=== PATIENT | female | born 1955 | race Caucasian/White ===

== ENCOUNTER → 2017-04-02 | Outpatient (CLI) | payer MEDICARE, OTHER ==
[~2017-04-02] MED LIST: ALPR1TAB7 PO; ATOR20TA66 PO; ATOR80TA2 PO; BP MED; CHLS4PK PO; CHOL5000 PO; CITA-105 PO; D50KC PO; FURO40TA4 PO; FURO80TA PO; GLIM1TAB PO; GLYBURIDE; JANUVIA PO; LASIX; LATA2.5D5 OU; LEVO175T2 PO; LIRA0.6P SQ; LIRA0.6P3 SC; LISI5TAB PO; LVT.15T PO; PNT40TEC PO; POTA10TA PO; POTASSIUM; SITA100T PO; STR51SU12 PR; THRYOID PO; VICTOZA; VITAMIN A; VITAMIN B PO; [UNRECOGNIZED DRUG - OTHER]
--- NOTE | 2017-04-02 15:47 | Diagnostic Imaging Report ---
EXAMINATION: Bilateral renal ultrasound. INDICATION: Chronic kidney disease. FINDINGS: The right kidney is 10.1 and the left kidney is 11.4 cm in length. There is no hydronephrosis or focal lesion. There is mild thinning of the renal parenchyma on both sides. The bladder was empty at the time of the exam and could not be evaluated. IMPRESSION: No hydronephrosis. Dictated by: Dictated on workstation # [id number]
== END ==
LOC: RAD 14:42
PROVIDERS: ATTEND Internal Medicine Nephrology
DX: N18.3 Chronic kidney disease, stage 3 (moderate) (principal); E11.22 Type 2 diabetes mellitus with diabetic chronic kidney disease; N25.81 Secondary hyperparathyroidism of renal origin; R89.9 Unspecified abnormal finding in specimens from other organs, systems and tissues; N28.1 Cyst of kidney, acquired
CPT/HCPCS: 76770

== ENCOUNTER 2017-11-19 17:11 | Emergency (ER) | payer MEDICARE ==
[~2017-11-19] VITALS: Ht 154.9 cm; Wt 135.2 kg
--- OUTSIDE RECORDS SUMMARY | 2017-11-19 17:17 | XMS REPORT | Continuity of Care Document ---
Author Author [facility] Organization [facility] Address Unknown Phone Unavailable Allergies Active Description Code Type Severity Reaction Onset Reported/Identified Relationship to Patient Clinical Status Yes No Known Drug Allergies [id number] Drug Allergy Unknown N/A 10/27/2013 Medications There is no data. Problems Date Dx Coded Attending Type Code Diagnosis Diagnosed By 03/22/2013 MYRA KIM DOQUELINE S Ot 780.79 OTH MALAISE FATIGUE 03/22/2013 RADHIKANDNENA DO ROBINSON S Ot 781.2 ABNORMALITY OF GAIT 03/22/2013 RADHIKANDNENA GARZA ROBINSON S Ot V15.88 HISTORY OF FALL 03/22/2013 RADHIKANDMYRA BARRETT DOQUELINE S Ot V57.1 PHYSICAL THERAPY NEC 04/30/2013 JULIO GARZA ROBINSON S Ot 780.79 OTH MALAISE FATIGUE 04/30/2013 RADHIKANDER DO ROBINSON S Ot 781.2 ABNORMALITY OF GAIT 04/30/2013 RADHIKANDNENA DO ROBINSON S Ot V15.88 HISTORY OF FALL 04/30/2013 RADHIKANDER DO ROBINSON S Ot V57.1 PHYSICAL THERAPY NEC 11/05/2013 MYRA KIM DOQUELINE S Ot 041.02 BACTERIAL INFECTION DUE TO STREPTOCOCCUS 11/05/2013 MYRA KIM DOQUELINE S Ot 041.49 OTHER AND UNSPECIFIED ESCHERICHIA COLI [ 11/05/2013 RADHIKANDNENA GARZA ROBINSON S Ot 244.9 HYPOTHYROIDISM NOS 11/05/2013 RADHIKANDNENA GARZA ROBINSON S Ot 245.0 ACUTE THYROIDITIS 11/05/2013 JULIO GARZA ROBINSON S Ot 250.80 DIAB W OTH SPEC MANIFEST, TYPE II OR UNS 11/05/2013 RADHIKANDNENA GARZA ROBINSON S Ot 272.4 HYPERLIPIDEMIA NEC/NOS 11/05/2013 RADHIKANDMYRA BARRETT DOQUELINE S Ot 276.51 DEHYDRATION 11/05/2013 RADHIKANDMYRA BARRETT DOQUELINE S Ot 278.01 MORBID OBESITY 11/05/2013 ROBINSON KIM DO S Ot 401.9 HYPERTENSION NOS 11/05/2013 ROBINSON KIM DO S Ot 455.6 HEMORRHOIDS NOS 11/05/2013 ROBINSON KIM DO S Ot 458.9 HYPOTENSION NOS 11/05/2013 ROBINSON KIM DO S Ot 558.9 NONINF GASTROENTERIT NEC 11/05/2013 ROBINSON KIM DO S Ot 569.49 RECTAL ANAL DIS NEC 11/05/2013 ROBINSON KIM DO S Ot 584.9 ACUTE RENAL FAILURE, UNSPECIFIED 11/05/2013 ROBINSON KIM DO S Ot 599.0 URIN TRACT INFECTION NOS 11/05/2013 ROBINSON KIM DO S Ot 780.79 OTH MALAISE FATIGUE 11/05/2013 ROBINSON KIM DO S Ot 924.11 CONTUSION OF KNEE 11/05/2013 ROBINSON KIM DO Ot E000.8 OTHER EXTERNAL CAUSE STATUS 11/05/2013 ROBINSON KIM DO S Ot E849.0 ACCIDENT IN HOME 11/05/2013 ROBINSON KIM DO S Ot E888.9 FALL NOS 11/05/2013 ROBINSON KIM DO S Ot V10.87 HX OF THYROID MALIGNANCY 11/05/2013 JULIO GARZA ROBINSON S Ot V45.86 BARIATRIC SURGERY STATUS 11/05/2013 ROBINSON KIM DO S Ot V85.44 BODY MASS INDEX 60.0-69.9, ADULT 11/25/2014 RADHIKANICOLETTE ROBINSON S Ot 285.9 11/25/2014 JULIO ROBINSON S Ot 593.9 11/25/2014 Ot 722.52 11/25/2014 Ot 782.0 11/25/2014 Ot V76.12 11/25/2014 FRANCISCO JAVIER GANT SPANISH LECTURER Ot 593.9 11/25/2014 FRANCISCO JAVIER GANTP Ot V76.12 01/13/2015 SOLE FROST MD Ot 250.60 01/13/2015 SOLE FROST MD Ot 285.9 01/13/2015 SOLE FROST MD Ot 337.1 01/13/2015 SOLE FROST MD Ot 585.3 01/13/2015 SOLE FROST MD Ot 588.0 01/20/2015 SOLE FROST MD A Ot 250.60 01/20/2015 SOLE FROST MD A Ot 285.9 01/20/2015 SOLE FROST MD Ot 337.1 01/20/2015 SOLE FROST MD Ot 585.3 01/20/2015 SOLE FROST MD Ot 588.0 08/31/2015 VANCOREY FRANCISCO JAVIER M SPANISH LECTURER Ot 593.9 08/31/2015 VANBECELAEJAMIL SCANLONSA M SPANISH LECTURER Ot V76.12 10/08/2016 KHANG KIM DOLINE S Ot 285.9 ANEMIA NOS 10/08/2016 KHANG KIM DOLINE S Ot 593.9 RENAL URETERAL DIS NOS 10/08/2016 Ot 722.52 LUMB/ LUMBOSAC DISC DEGEN 10/08/2016 Ot 782.0 SKIN SENSATION DISTURB 10/08/2016 Ot V76.12 OTH SCREEN MAMMO-MALIGN NEOPLASM OF MARÍA 10/08/2016 VANIDALIAELAERE FRANCISCO JAVIER M SPANISH LECTURER Ot 593.9 RENAL URETERAL DIS NOS 10/08/2016 VANIDALIAELAERE FRANCISCO JAVIER M SPANISH LECTURER Ot V76.12 OTH SCREEN MAMMO-MALIGN NEOPLASM OF MARÍA 10/08/2016 SOLE FROST MD Ot 250.60 DIAB W NEURO MANIFEST, TYPE II OR UNSPEC 10/08/2016 SOLE FROST MD Ot 285.9 ANEMIA NOS 10/08/2016 SOLE FROST MD Ot 337.1 AUT NEUROPTHY IN OTH DIS 10/08/2016 SOLE FROST MD Ot 585.3 CHRONIC KIDNEY DISEASE, STAGE III (MODER 10/08/2016 SOLE FROST MD Ot 588.0 RENAL OSTEODYSTROPHY 10/08/2016 ROBINSON KIM DO S Ot Z12.31 ENCNTR SCREEN MAMMOGRAM FOR MALIGNANT NE 10/09/2016 ROBINSON KIM DO S Ot Z12.31 ENCNTR SCREEN MAMMOGRAM FOR MALIGNANT NE 10/09/2016 ROBINSON KIM DO S Ot Z12.31 ENCNTR SCREEN MAMMOGRAM FOR MALIGNANT NE 10/30/2016 ROBINSON KIM DO S Ot Z12.31 ENCNTR SCREEN MAMMOGRAM FOR MALIGNANT NE 11/07/2016 KHANG KIM DOLINE S Ot Z12.31 ENCNTR SCREEN MAMMOGRAM FOR MALIGNANT NE 04/02/2017 KHANG KIM DOLINE S Ot 285.9 ANEMIA NOS 04/02/2017 ARDHIKANDKHANG BARRETT DOLINE S Ot 593.9 RENAL URETERAL DIS NOS 04/02/2017 Ot 722.52 LUMB/ LUMBOSAC DISC DEGEN 04/02/2017 Ot 782.0 SKIN SENSATION DISTURB 04/02/2017 Ot V76.12 OTH SCREEN MAMMO-MALIGN NEOPLASM OF MARÍA 04/02/2017 FRANCISCO JAVIER GANT SPANISH LECTURER Ot 593.9 RENAL URETERAL DIS NOS 04/02/2017 FRANCISCO JAVIER GANT SPANISH LECTURER Ot V76.12 OTH SCREEN MAMMO-MALIGN NEOPLASM OF MARÍA 04/02/2017 SOLE FROST MD Ot 250.60 DIAB W NEURO MANIFEST, TYPE II OR UNSPEC 04/02/2017 SOLE FROST MD Ot 285.9 ANEMIA NOS 04/02/2017 SOLE FROST MD Ot 337.1 AUT NEUROPTHY IN OTH DIS 04/02/2017 SOLE FROST MD Ot 585.3 CHRONIC KIDNEY DISEASE, STAGE III (MODER 04/02/2017 SOLE FROST MD Ot 588.0 RENAL OSTEODYSTROPHY 04/02/2017 RADHIKARAYNANENA ROBINSON S Ot Z12.31 ENCNTR SCREEN MAMMOGRAM FOR MALIGNANT NE 04/14/2017 SOLE FROST MD Ot E11.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 Encounters ACCT No. Visit Date/Time Discharge Status Pt. Type Provider Facility Loc./Unit Complaint [id number] 04/02/2017 14:42:00 04/02/2017 23:59:59 CLS Outpatient SOLE FROST MD [facility] RAD N18.3 DM 2 W RENAL DISEASE [id number] 10/08/2016 14:44:00 10/08/2016 23:59:59 CLS Outpatient KHANG KIM DOLINE S [facility] RAD SCREENING,LT UPPER ANTERIOR LYMPHADENOPATHY [id number] 11/29/2014 14:00:00 11/29/2014 23:59:59 CLS Outpatient SOLE FROST MD [facility] RAD CKD 3 [id number] 2014 13:42:00 2014 23:59:59 CLS Outpatient FRANCISCO JAVIER GANT SPANISH LECTURER [facility] RAD RENAL INSUFFICENCY [id number] 11/12/2013 13:14:00 11/12/2013 23:59:59 CLS Outpatient JULIO GARZA ROBINSON S [facility] LAB ANEMIA,RENAL INSUFF [id number] 10/27/2013 12:46:00 11/05/2013 12:38:00 DIS Inpatient JULIO GARZA ROBINSON S [facility] 4TH ACUTE RENAL FAILURE DEHYDRATION DIABETES [id number] 04/14/2013 15:19:00 04/30/2013 09:02:00 DIS Outpatient RADHIKANDNENA GARZA ROBINSON S [facility] REHAB FALLS WEAKNESS GAIT ABNORMALITY [id number] 03/19/2013 15:33:00 03/22/2013 08:00:00 DIS Outpatient RADHIKANDNENA GARZA ROBINSON S [facility] REHAB FALLS WEAKNESS GAIT ABNORMALITY [id number] 01/22/2012 14:53:00 Document Registration
--- NOTE | 2017-11-19 19:45 | ED General ---
General Chief Complaint: Allergic Reaction Stated Complaint: POSSIBLE MEDICATION REACTION Nursing Triage Note: PT REPORTS TROUBLE FORMING WORDS AND TINGLING IN HER TONGUE FOR 1 WEEK AFTER STARTING AMPITRIPYLINE 1 WEEK AGO. Nursing Sepsis Screen: No Definite Risk Source of Information: Patient Exam Limitations: No Limitations History of Present Illness Date Seen by Provider: Nov 19, 2017 Time Seen by Provider: 19:43 Initial Comments To ER with some intermittent dysarthria and tingling sensation in her tongue that has been going on for one week after starting amitriptyline. She started amitriptyline 2 weeks ago. She was formerly on Xanax 1 mg at bedtime and hydrocodone for pain. She saw Dr. KIM who told her that she should take one or the other but not bolus and so the patient chose to give up the Xanax. In place of this she started amitriptyline to help sleep and she states it is helping significantly with her sleeping. She called the office today and was referred to the emergency room by the nurse because this could represent a stroke. Timing/Duration: 1 Week Severity: Moderate Allergies and Home Medications Allergies Coded Allergies: adhesive tape (Unverified Adverse Reaction, Unknown, 11/19/17) Home Medications Amitriptyline HCl 100 Mg Tablet, 100 MG PO HS, (Reported) Atorvastatin Calcium 20 Mg Tablet, 20 MG PO DAILY, (Reported) Cholecalciferol 5,000 Unit Capsule, 5,000 UNIT PO DAILY, (Reported) Doxycycline Monohydrate 100 Mg Capsule, 100 MG PO BID, (Reported) Duloxetine HCl 30 Mg Capsule.dr, 30 MG PO DAILY, (Reported) Gabapentin 800 Mg Tablet, 800 MG PO HS, (Reported) Hydrocodone/Acetaminophen 1 Each Tablet, 1 TAB PO TID PRN for PAIN-MILD TO MODERATE, (Reported) Latanoprost 2.5 Ml Drops, 1 DROP OU HS, (Reported) Levothyroxine Sodium 175 Mcg Tablet, 175 MCG PO DAILY, (Reported) Metformin HCl 500 Mg Tab.er.24h, 1,000 MG PO DAILY, (Reported) Constitutional: see HPI EENTM: see HPI Respiratory: no symptoms reported Cardiovascular: no symptoms reported Genitourinary: no symptoms reported Musculoskeletal: no symptoms reported Skin: no symptoms reported Psychiatric/Neurological: No Symptoms Reported Hematologic/Lymphatic: No Symptoms Reported Past Fetbgak-Grvlnz-Yvzkzy Hx Patient Social History Recent Foreign Travel: No Contact w/Someone Who Travel: No Recent Infectious Disease Expo: No Physical Abuse: No Sexual Abuse: No Mistreated: No Fear: No Immunizations Up To Date Date of Pneumonia Vaccine: Oct 20, 2009 Date of Influenza Vaccine: Aug 20, 2013 Reproductive System Hx Reproductive Disorders: No HIV/AIDS: No Female Reproductive Disorders: Denies Musculoskeletal Musculoskeletal Disorders: Arthritis, Chronic Back Pain Endocrine Endocrine Disorders: Diabetes, Non-Insulin dep HEENT Hearing Impairment: Denies Cancer Cancer: Thyroid Psychosocial Suicide Risk Score: 0 Physical Exam Vital Signs Vital Sign - Last 12Hours 11/19/17 19:04 Temp 97.9 Pulse 86 Resp 18 B/P (MAP) 110/68 (82) Pulse Ox 94 O2 Delivery Room Air Capillary Refill : Less Than 3 Seconds General Appearance: No Apparent Distress, WD/WN Eyes: Bilateral Eye Normal Inspection, Bilateral Eye PERRL HEENT: PERRL/EOMI, TMs Normal Neck: Full Range of Motion, Normal Inspection Respiratory: No Accessory Muscle Use, No Respiratory Distress Cardiovascular: Regular Rate, Rhythm, Normal Peripheral Pulses Gastrointestinal: Non Tender, Soft Extremity: Normal Capillary Refill, Normal Inspection Neurologic/Psychiatric: Alert, Oriented x3 Skin: Normal Color, Warm/Dry Comments On exam she does have some intermittent dysarthria without other focal neurologic deficit. Progress/Results/Core Measures Suspected Sepsis Recent Fever Within 48 Hours: No Infection Criteria Present: None New/Unexplained Altered Menta: No Sepsis Screen: No Definite Risk Sepsis Diagnosis: SIRS Temperature:97.9 Pulse: 86 Respiratory Rate: 18 Blood Pressure 110 /68 Mean: 82 Results/Orders My Orders Orders - ROSALINE QURESHI APRN Ct [facility] Wo (11/19/17 19:42) Vital Signs/I&O Vital Sign - Last 12Hours 11/19/17 19:04 Temp 97.9 Pulse 86 Resp 18 B/P (MAP) 110/68 (82) Pulse Ox 94 O2 Delivery Room Air Capillary Refill : Less Than 3 Seconds Blood Pressure Mean: 82 Departure Impression Impression: Primary Impression: Medication side effect Disposition: 01 HOME, SELF-CARE Condition: Stable Departure-Patient Inst. Decision time for Depature: 20:14 Referrals: ROBINSON KIM DO (PCP/Family) Primary Care Physician Patient Instructions: NO INSTRUCTIONS GIVEN Add. Discharge Instructions: 1. Call Dr. Kim tomorrow to let her know of your side effects of this medication. Ask if there might be something else you could try 2. Return to ER for any concerns or worsening symptoms All discharge instructions reviewed with patient and/or family. Voiced understanding. Copy Copies To 1: ROBINSON KIM PETER J APRN Nov 19, 2017 19:45
[2017-11-19] MEDS ORDERED: DULO30CA48 PO (19:50)
[2017-11-19] MEDS ORDERED: AMIT100T2 PO (19:50)
[2017-11-19] MEDS ORDERED: GABA800T2 PO (19:50)
[2017-11-19] MEDS ORDERED: DOXY100C42 PO (19:50)
[2017-11-19] MEDS ORDERED: HYDR-34 PO (19:50)
[2017-11-19] MEDS ORDERED: METF500T8 PO (19:50)
[2017-11-19] MEDS ORDERED: LEVO175T2 PO (19:50)
--- NOTE | 2017-11-19 20:05 | Diagnostic Imaging Report ---
PROCEDURE: CT head without contrast. TECHNIQUE: Multiple contiguous axial images were obtained through the brain without the use of intravenous contrast. INDICATION: Dysphonia, altered mental status The ventricles are normal in size, shape and position. There are no masses or hemorrhages. There are no extra-axial fluid collections. IMPRESSION: Negative CT head Dictated by: Dictated on workstation # [id number]
[2017-11-19 20:25] VITALS: BP 110/75
== END 2017-11-19 20:25 | disposition home or self-care (01) ==
LOC: EDUNIT# 17:11 → ER 17:13
DX: R47.1 Dysarthria and anarthria (principal); E11.9 Type 2 diabetes mellitus without complications; Z85.850 Personal history of malignant neoplasm of thyroid; Z91.048 Other nonmedicinal substance allergy status; Z79.01 Long term (current) use of anticoagulants; Z79.84 Long term (current) use of oral hypoglycemic drugs; T43.015A Adverse effect of tricyclic antidepressants, initial encounter
CPT/HCPCS: 70450; 99282

== ENCOUNTER → 2018-12-31 | Outpatient (CLI) | payer MEDICARE ==
[~2018-12-31] MED LIST changes: +AMIT100T2 PO; +DOXY100C42 PO; +DULO30CA48 PO; +GABA800T10 PO; +HYDR-34 PO; +METF500T8 PO
--- NOTE | 2018-12-31 20:05 | Diagnostic Imaging Report ---
INDICATION: Routine screening. Comparison is made with prior mammograms from 10/08/2016 and 07/19/2014. 2-D and 3-D bilateral screening mammography was performed with Computer-Aided Detection (CAD) system. FINDINGS: Scattered fibroglandular densities are identified bilaterally. Benign-appearing parenchymal and vascular calcifications are again noted. No mass or malignant-appearing microcalcifications are seen. The axillae are unremarkable. IMPRESSION: No mammographic features suspicious for malignancy are identified. ACR BI-RADS Category 2: Benign findings. Result letter will be mailed to the patient. Note: At least 10% of breast cancer is not imaged by mammography. Dictated by: Dictated on workstation # [id number]
== END ==
LOC: RAD 13:58
PROVIDERS: ATTEND Family Medicine
DX: Z12.31 Encounter for screening mammogram for malignant neoplasm of breast (principal)
CPT/HCPCS: 77067

== ENCOUNTER → 2019-03-03 | Outpatient (CLI) | payer MEDICARE ==
--- NOTE | 2019-03-03 12:17 | Diagnostic Imaging Report ---
INDICATION: Multiple recent falls. TECHNIQUE: Routine non contrast-enhanced axial images were obtained from the skull base to the vertex. Auto Exposure Controls were utilized during the CT exam to meet ALARA standards for radiation dose reduction COMPARISON: None. FINDINGS: The ventricles and cortical sulci are diffusely prominent, compatible with age-related volume loss. There are confluent areas of abnormal, low attenuation in the periventricular white matter. This is consistent with small chronic small vessel ischemic changes. There is no midline shift or mass-effect. No acute intra-axial hemorrhage is seen. There are no abnormal areas of increased or decreased density to suggest acute hemorrhage or edema. No extra-axial masses or collections are present. The bony calvarium is intact. The visualized paranasal sinuses are unremarkable. The mastoid air cells are clear. IMPRESSION: 1. No acute intracranial abnormality. No CT evidence of mass, acute infarct or intracranial hemorrhage. 2. Chronic small vessel ischemic changes in the deep white matter. Dictated by: Dictated on workstation # [id number]
--- NOTE | 2019-03-03 14:17 | Diagnostic Imaging Report ---
PROCEDURE: US carotid duplex, bilateral. TECHNIQUE: Multiple real-time grayscale images were obtained over the carotid arteries in various projections, bilaterally. Additional spectral analysis and color Doppler duplex images were also obtained. INDICATION: Syncope and transient ischemic attack. FINDINGS: There is some mild plaquing in the proximal right internal carotid artery. Left carotid system is unremarkable. Velocities are normal bilaterally. No velocity elevation or stenosis is seen. Both vertebral arteries show antegrade flow. IMPRESSION: No evidence of a hemodynamically significant stenosis. Parameters based on the consensus panel Luo-Scale and Doppler ultrasound criteria published August 2003, Radiology, Volume 229. DOPPLER (peak systolic velocity M/S Right Left CCA 1.1 0.9 ICA Proximal 0.83 0.31 ICA Mid 0.62 0.61 ICA Distal 1.0 0.61 RATIO 0.9 0.7 ECA 0.92 0.69 VERT 0.38 0.48 Dictated by: Dictated on workstation # [id number]
== END ==
LOC: RAD 11:17
PROVIDERS: ATTEND Family Medicine
DX: G45.9 Transient cerebral ischemic attack, unspecified (principal); I67.82 Cerebral ischemia; R29.6 Repeated falls
CPT/HCPCS: 70450; 93306; 93880

== ENCOUNTER → 2020-05-30 | Outpatient (CLI) | payer MEDICARE ==
[~2020-05-30] MED LIST changes: -DULO30CA48 PO; +DULO30CA49 PO; +METF-865 PO; -METF500T8 PO
--- NOTE | 2020-05-30 17:16 | Diagnostic Imaging Report ---
INDICATION: Routine screening. COMPARISON is made with prior mammograms from 12/31/2018 and 10/08/2016. 2-D and 3-D bilateral screening mammography was performed with CAD. Both breasts are primarily involutional. There are benign and vascular calcifications in both breasts. No mass or malignant appearing microcalcifications are seen. The axillae are unremarkable. IMPRESSION: BI-RADS Category 2. No mammographic features suspicious for malignancy are identified. ACR BI-RADS Category 2: Benign findings. Result letter will be mailed to the patient. Note: At least 10% of breast cancer is not imaged by mammography. Dictated by: Dictated on workstation # [id number]
== END ==
LOC: RAD 15:13
PROVIDERS: ATTEND Family Medicine
DX: Z12.31 Encounter for screening mammogram for malignant neoplasm of breast (principal)
CPT/HCPCS: 77063; 77067

== ENCOUNTER 2020-10-01 23:29 | Emergency (ER) | payer MEDICARE ==
[~2020-10-01] VITALS: Ht 154.9 cm; Wt 124.2 kg
[2020-10-01] MEDS ORDERED: NS IV 1000 ML 1,000 ML IV SCH (23:45)
[2020-10-02 00:08] LABS: BASOPHILS % (AUTO) 0 % (0-10); EOSINOPHILS # (AUTO) 0.1 10^3/uL (0.0-0.3); EOSINOPHILS % (AUTO) 1 % (0-10); HEMATOCRIT 28 % (35-52); HEMOGLOBIN 8.1 g/dL (11.5-16.0); LYMPHOCYTES # (AUTO) 1.3 10^3/uL (1.0-4.0); LYMPHOCYTES % (AUTO) 12 % (12-44); MEAN CORPUSCULAR HEMOGLOBIN 30 pg (25-34); MEAN CORPUSCULAR HGB CONC 29 g/dL (32-36); MEAN CORPUSCULAR VOLUME 102 fL (80-99); MEAN PLATELET VOLUME 11.9 fL (9.0-12.2); MONOCYTES # (AUTO) 0.5 10^3/uL (0.0-1.0); MONOCYTES % (AUTO) 5 % (0-12); NEUTROPHILS # (AUTO) 8.6 10^3/uL (1.8-7.8); NEUTROPHILS % (AUTO) 81 % (42-75); PLATELET COUNT 204 10^3/uL (130-400); WHITE BLOOD COUNT 10.5 10^3/uL (4.3-11.0)
[2020-10-02 00:13] LABS: ALBUMIN 3.2 GM/DL (3.2-4.5); CHLORIDE 118 MMOL/L (98-107); SODIUM 140 MMOL/L (135-145)
[2020-10-02 00:14] LABS: CALCIUM 7.6 MG/DL (8.5-10.1)
[2020-10-02 00:15] LABS: GLUCOSE 126 MG/DL (70-105); TOTAL PROTEIN 6.3 GM/DL (6.4-8.2)
[2020-10-02 00:17] LABS: BILIRUBIN,TOTAL 0.6 MG/DL (0.1-1.0)
[2020-10-02 00:18] LABS: INR 1.2 (0.8-1.4); PROTHROMBIN TIME PATIENT 15.5 SEC (12.2-14.7)
[2020-10-02 00:19] LABS: ALKALINE PHOSPHATASE 81 U/L (40-136); CREATININE SERUM 6.68 MG/DL (0.60-1.30); GFR ESTIMATED 6
[2020-10-02 00:20] LABS: BUN/CREATININE RATIO 13
[2020-10-02 00:22] LABS: ALANINE AMINOTRANSFERASE 20 U/L (0-55); CREATINE KINASE 93 U/L (29-168); MAGNESIUM 1.9 MG/DL (1.6-2.4)
[2020-10-02 00:29] LABS: CARBON DIOXIDE 9 MMOL/L (21-32)
[2020-10-02 00:30] LABS: CREATINE KINASE MB 1.4 NG/ML (<6.6)
[2020-10-02 00:31] LABS: POTASSIUM 6.8 MMOL/L (3.6-5.0)
[2020-10-02 00:36] LABS: ERYTHROCYTE SEDIMENTATION RATE 140 MM/HR (0-30)
[2020-10-02] MEDS ORDERED: NS (IVPB) 50 ML ONE (00:43)
[2020-10-02] MEDS ORDERED: DEXTROSE 50% 50 ML (IMS) SYR IV ONE (00:45)
[2020-10-02] MEDS ORDERED: inSUlin (REGULAR) HUMAN 1 UNIT/0.01 ML (CHARGE PER UNIT) SC ONE (00:45)
[2020-10-02] MEDS ORDERED: SOD POLYSTERENE 15 GM/60 ML (KAYEXALATE) UNIT DOSE PO ONE (00:45)
[2020-10-02] MEDS ORDERED: NS IV 1000 ML 1,000 ML IV SCH (00:45)
[2020-10-02] MEDS ORDERED: CALCIUM GLUC. 10% 4.65 MEQ/10 ML VIAL IV ONE (00:45)
[2020-10-02 01:49] LABS: BILIRUBIN,URINE NEGATIVE (NEGATIVE); CLARITY,URINE CLEAR; COLOR,URINE YELLOW; GLUCOSE, URINE (UA) NEGATIVE (NEGATIVE); KETONES,URINE NEGATIVE (NEGATIVE); LEUKOCYTE ESTERASE ,URINE NEGATIVE (NEGATIVE); NITRITE,URINE NEGATIVE (NEGATIVE); PH,URINE 5.5 (5-9); PROTEIN,URINE NEGATIVE (NEGATIVE)
[2020-10-02 01:55] LABS: ABG BASE EXCESS -17.6 MMOL/L (-2.5-2.5); ABG OXYGEN SATURATION 84 % (94-100); ABG PCO2 31 MMHG (35-45); ABG PO2 62 MMHG (79-93)
[2020-10-02 01:56] LABS: ABG PH 7.12 (7.37-7.43); ALLENS TEST POSITIVE; INSPIRED O2 RA; PATIENT TEMP 36.3; VENTILATOR NO
[2020-10-02] MEDS ORDERED: RT-ALBUTEROL INHALER HFA (VENTOLIN HFA) 18 GM IH SCH (02:00)
[2020-10-02] MEDS ORDERED: SODIUM BICARB 8.4% 50 MEQ/50 ML VIAL IV ONE (02:00)
--- NOTE | 2020-10-02 02:01 | NUR ---
[facility] enroute to transfer the patient to [facility] RM [id number].
[2020-10-02 02:07] LABS: WBC,URINE 0-2 /HPF
[2020-10-02 02:08] LABS: AMORPHOUS SEDIMENT,UR MOD AMOR URATES /LPF; BACTERIA,URINE FEW /HPF; YEAST,URINE FEW /HPF
--- NOTE | 2020-10-02 02:12 | NUR ---
[facility] arrival.
[2020-10-02 02:31] VITALS: BP 119/71
--- NOTE | 2020-10-02 02:31 | ED General ---
General Chief Complaint: General Problems/Pain Stated Complaint: FALL / WEAKNESS Nursing Triage Note: WEAKNESS ON FRIDAY TEST DONE ON FRIDAY FOR COVID FEELING WEAK SINCE THEN. DENIES FEVER OR COUGH NO NAUSEA OR VOMITING DENIES DIARRHEA.PAIN IN BACK OF HER CALVES AND ARMS. Nursing Sepsis Screen: No Definite Risk Source of Information: Patient History of Present Illness Date Seen by Provider: Oct 01, 2020 Time Seen by Provider: 23:29 Initial Comments PT ARRIVES VIA EMS FROM HOME C/O GENERALIZED WEAKNESS SINCE FRIDAY STATES SHE SLEPT ALL DAY TODAY AND TONIGHT SHE WAS TOO WEAK TO STAND NO INJURY AND DID NOT FALL, BUT SLOWLY SLID DOWN TO THE FLOOR BECAUSE SHE WAS TOO WEAK TO STAND, SO CALLED EMS BP WAS IN 80'S /40'S FOR EMS. PT HAS NO OTHER SYMPTOMS OF ANY KIND NO FEVER/SWEATS/CHILLS NO COUGH OR URI SYMPTOMS NO SORE THROAT NO LOSS OF TASTE OR SMELL NO SHORTNESS OF BREATH NO CHEST PAIN NO PALPITATIONS NO SYNCOPE NO DIZZINESS NO NAUSEA/VOMITING/DIARRHEA/CONSTIPATION OR ABDOMINAL PAIN--LAST BM WAS LAST NIGHT NO PAIN ANYWHERE NO SWELLING IN LEGS/ FEET NO BODY ACHES NO HEADACHE NO VISION CHANGES NO PARESTHESIAS OR MOTOR DEFICITS NO NECK OR BACK PAIN STATES SHE HAS BEEN EATING AND DRINKING NORMALLY, AND VOIDING WITHOUT DIFFICULTY--MAYBE NOT VOIDING QUITE MUCH AT AT TIME NORMAL PT IS DIABETIC, HAS NOT CHECKED BLOOD SUGAR TODAY GLUCOSE WAS 142 FOR EMS. STATES SHE WENT THROUGH THE DRIVE-THRU COVID TESTING AT [facility] ON Friday09/30/20, ONLY BECAUSE SHE FELT WEAK, NO OTHER SYMPTOMS DOES NOT HAVE RESULTS BACK YET. NO KNOWN SICK CONTACTS OR EXPOSURE TO COVID-19. NO CHANGES IN ANY MEDICATIONS PCP: DR. KIM NEPHROLOGY: UNKNOWN DR AT [facility] [place] Allergies and Home Medications Allergies Coded Allergies: adhesive tape (Unverified Adverse Reaction, Unknown, 11/19/17) Home Medications Amitriptyline HCl 100 Mg Tablet, 100 MG PO HS, (Reported) Atorvastatin Calcium 20 Mg Tablet, 20 MG PO DAILY, (Reported) Cholecalciferol 5,000 Unit Capsule, 5,000 UNIT PO DAILY, (Reported) Doxycycline Monohydrate 100 Mg Capsule, 100 MG PO BID, (Reported) Duloxetine HCl 30 Mg Capsule.dr, 30 MG PO DAILY, (Reported) Gabapentin 800 Mg Tablet, 800 MG PO HS, (Reported) Hydrocodone Bit/Acetaminophen 1 Each Tablet, 1 TAB PO TID PRN for PAIN-MILD TO MODERATE, (Reported) Latanoprost 2.5 Ml Drops, 1 DROP OU HS, (Reported) Levothyroxine Sodium 175 Mcg Tablet, 175 MCG PO DAILY, (Reported) Metformin HCl 500 Mg Tab.er.24h, 1,000 MG PO DAILY, (Reported) Patient Home Medication List Home Medication List Reviewed: Yes Review of Systems Review of Systems Constitutional: see HPI; No chills, No diaphoresis, No dizziness, No fever; weakness EENTM: no symptoms reported; No nose congestion, No throat pain Respiratory: no symptoms reported; No cough, No orthopnea, No short of breath, No wheezing Cardiovascular: no symptoms reported; No chest pain, No edema, No palpitations, No syncope, No vascular heart diseas Gastrointestinal: no symptoms reported; No abdominal pain, No constipation, No diarrhea, No loss of appetite, No nausea, No vomiting Genitourinary: see HPI, decreased output; No discharge, No dysuria, No frequency, No hematuria, No hesitancy, No incontinence, No nocturia, No pain Musculoskeletal: no symptoms reported; No back pain, No muscle pain, No neck pain Skin: no symptoms reported; No rash Psychiatric/Neurological: No Symptoms Reported; Denies Headache, Denies Numbness, Denies Paresthesia, Denies Seizure, Denies Tingling, Denies Tremors Hematologic/Lymphatic: No Symptoms Reported Immunological/Allergic: no symptoms reported PT HAS NOT HAD ANY LAB DONE HERE SINCE 2013 Past Vnbojss-Elnodw-Yfayoc Hx Past Med/Social Hx: Reviewed and Corrections made Patient Social History Alcohol Use: Denies Use Recreational Drug Use: No Smoking Status: Never a Smoker Recent Foreign Travel: No Contact w/Someone Who Travel: No Recent Infectious Disease Expo: No Recent Hopitalizations: No Physical Abuse: No Sexual Abuse: No Mistreated: No Fear: No Immunizations Up To Date Tetanus Booster (TDap): Less than 5yrs PED Vaccines UTD: Yes Date of Pneumonia Vaccine: Oct 20, 2009 Date of Influenza Vaccine: Aug 03, 2016 Seasonal Allergies Seasonal Allergies: No Past Medical History Surgeries: Yes (PILONIDAL CYST/ABSCESS;MULTIPLE DEBRIDEMENTS FOR NECROTIZING FA SCITIS; ) Abdominal, Gallbladder, Thyroidectomy Respiratory: No Cardiac: Yes High Cholesterol, Hypertension Neurological: Yes Neuropathy : No Reproductive Disorders: No Female Reproductive Disorders: Denies [employer] History: Menopausal HIV/AIDS: No Genitourinary: Yes (STAGE 3 RENAL FAILURE--NO DIALYSIS) Renal Failure Gastrointestinal: Yes (GASTRIC BYPASS) Musculoskeletal: Yes (CHRONIC GENERALIZED PAIN ) Arthritis, Chronic Back Pain Endocrine: Yes (THYROID CANCER;MORBID OBESITY) Hypothyroidsim, Diabetes, Non-Insulin dep HEENT: No Hearing Impairment: Denies Cancer: Yes Thyroid Did You Recieve Any Treatments: Yes What Type of Treatment Did You: Surgical Intervention THYROID CANCER 2009--S/P SURGERY ONLY. NO CHEMO OR RADIATION. DOES NOT SEE AN ONCOLOGIST Psychosocial: Yes Anxiety, Depression Integumentary: Yes (HX- NECROTIZING FASCITIS IN 1989;PILONIDAL CYST/ABSCESS) Blood Disorders: No Family Medical History PAST SURGICAL /PROCEDURAL HISTORY: -FLEXIBLE SIGMOIDOSCOPY 10/2013 -GASTRIC BYPASS -THYROIDECTOMY 2009 -CHOLECYSTECTOMY Physical Exam Vital Signs Vital Signs - First Documented 10/01/20 10/02/20 23:34 02:00 Temp 36.0 Pulse 84 Resp 15 B/P (MAP) 100/61 (74) Pulse Ox 100 O2 Delivery Room Air O2 Flow Rate 2.00 FiO2 100 Capillary Refill : Less Than 3 Seconds Height, Weight, BMI Height: 5'1.00" Weight: 298lbs. 2.0oz. 135.397213iv; 51.00 BMI Method:Stated General Appearance: No Apparent Distress, WD/WN, Obese (MORBDILY OBESE), Other (HEAD SHAVED, WITH FRONTAL BALDING PATTERN; DOES NOT APPEAR ILL OR TO BE IN ANY DISCOMFORT OR DISTRESS. SMILING. 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 II-XII Norm as Tested Skin: Normal Color, Warm/Dry Focused Exam Lactate Level 10/01/20 23:40: Lactic Acid Level 1.47 Lactic Acid Level Progress/Results/Core Measures Suspected Sepsis Recent Fever Within 48 Hours: No Infection Criteria Present: None New/Unexplained Altered Menta: No Sepsis Screen: No Definite Risk SIRS Temperature: Pulse: 84 Respiratory Rate: 15 Laboratory Tests 10/01/20 23:40: White Blood Count 10.5 Blood Pressure 100 /61 Mean: 73 10/01/20 23:40: Lactic Acid Level 1.47 Laboratory Tests 10/01/20 23:40: Creatinine 6.68H, INR Comment 1.2, Platelet Count 204, Total Bilirubin 0.6 Results/Orders Lab Results Laboratory Tests Test 10/01/20 01:40 10/01/20 23:40 10/02/20 01:40 10/02/20 01:51 Range/Units Urine Color YELLOW Urine Clarity CLEAR Urine pH 5.5 5-9 Urine Specific [place] 1.020 1.016-1.022 Urine Protein NEGATIVE NEGATIVE Urine Glucose (UA) NEGATIVE NEGATIVE Urine Ketones NEGATIVE NEGATIVE Urine Nitrite NEGATIVE NEGATIVE Urine Bilirubin NEGATIVE NEGATIVE Urine Urobilinogen 0.2 < = 1.0 MG/DL Urine Leukocyte Esterase NEGATIVE NEGATIVE Urine RBC (Auto) TRACE-I NEGATIVE Urine RBC 5-10 H /HPF Urine WBC 0-2 /HPF Urine Squamous Epithelial Cells 2-5 /HPF Urine Crystals PRESENT H /LPF Urine Amorphous Sediment MOD ZEV URATES H /LPF Urine Bacteria FEW H /HPF Urine Casts NONE /LPF Urine Mucus NEGATIVE /LPF Urine Yeast FEW H /HPF Urine Culture Indicated YES White Blood Count 10.5 4.3-11.0 10^3/uL Red Blood Count 2.74 L 3.80-5.11 10^6/uL Hemoglobin 8.1 L 11.5-16.0 g/dL Hematocrit 28 L 35-52 % Mean Corpuscular Volume 102 H 80-99 fL Mean Corpuscular Hemoglobin 30 25-34 pg Mean Corpuscular Hemoglobin Concent 29 L 32-36 g/dL Red Cell Distribution Width 15.6 H 10.0-14.5 % Platelet Count 204 130-400 10^3/uL Mean Platelet Volume 11.9 9.0-12.2 fL Immature Granulocyte % (Auto) 0 % Neutrophils (%) (Auto) 81 H 42-75 % Lymphocytes (%) (Auto) 12 12-44 % Monocytes (%) (Auto) 5 0-12 % Eosinophils (%) (Auto) 1 0-10 % Basophils (%) (Auto) 0 0-10 % Neutrophils # (Auto) 8.6 H 1.8-7.8 10^3/uL Lymphocytes # (Auto) 1.3 1.0-4.0 10^3/uL Monocytes # (Auto) 0.5 0.0-1.0 10^3/uL Eosinophils # (Auto) 0.1 0.0-0.3 10^3/uL Basophils # (Auto) 0.0 0.0-0.1 10^3/uL Immature Granulocyte # (Auto) 0.0 0.0-0.1 10^3/uL Erythrocyte Sedimentation Rate 140 H 0-30 MM/HR Prothrombin Time 15.5 H 12.2-14.7 SEC INR Comment 1.2 0.8-1.4 Activated Partial Thromboplast Time 34 24-35 SEC Sodium Level 140 135-145 MMOL/L Potassium Level 6.8 *H 3.6-5.0 MMOL/L Chloride Level 118 H 98-107 MMOL/L Carbon Dioxide Level 9 *L 21-32 MMOL/L Anion Gap 13 5-14 MMOL/L Blood Urea Nitrogen 85 H 7-18 MG/DL Creatinine 6.68 H 0.60-1.30 MG/DL Estimat Glomerular Filtration Rate 6 BUN/Creatinine Ratio 13 Glucose Level 126 H 70-105 MG/DL Lactic Acid Level 1.47 0.50-2.00 MMOL/L Calcium Level 7.6 L 8.5-10.1 MG/DL Corrected Calcium 8.2 L 8.5-10.1 MG/DL Magnesium Level 1.9 1.6-2.4 MG/DL Total Bilirubin 0.6 0.1-1.0 MG/DL Aspartate Amino Transf (AST/SGOT) 18 5-34 U/L Alanine Aminotransferase (ALT/SGPT) 20 0-55 U/L Alkaline Phosphatase 81 40-136 U/L Lactate Dehydrogenase 197 125-220 U/L Total Creatine Kinase 93 29-168 U/L Creatine Kinase MB 1.4 <6.6 NG/ML Myoglobin 313.0 H 10.0-92.0 NG/ML Troponin I < 0.028 <0.028 NG/ML C-Reactive Protein High Sensitivity 2.87 H 0.00-0.50 MG/DL B-Type Natriuretic Peptide 23.1 <100.0 PG/ML Total Protein 6.3 L 6.4-8.2 GM/DL Albumin 3.2 3.2-4.5 GM/DL Procalcitonin 0.56 H <0.10 NG/ML Coronavirus 2019 (JAM) Negative Negative Blood Gas Puncture Site LEFT RADIAL Blood Gas Patient Temperature 36.3 Arterial Blood pH 7.12 *L 7.37-7.43 Arterial Blood Partial Pressure CO2 31 L 35-45 MMHG Arterial Blood Partial Pressure O2 62 L 79-93 MMHG Arterial Blood HCO3 10 *L 23-27 MMOL/L Arterial Blood Total CO2 11.0 L 21.0-31.0 MMOL/L Arterial Blood Oxygen Saturation 84 L 94-100 % Arterial Blood Base Excess -17.6 L -2.5-2.5 MMOL/L Jose Roberto Test POSITIVE Blood Gas Ventilator Setting NO Blood Gas Inspired Oxygen RA Glucometer 194 H 70-110 MG/DL Micro Results Microbiology 10/01/20 Influenza Types A,B Antigen (NARINDER) - Final, Complete My Orders Orders - ELIZABETH WITT DO Ed Iv/Invasive Line Start (10/01/20 23:32) Ekg Tracing (10/01/20 23:32) Catheter(Urinary) Insert & Ass 03,15 (10/01/20 23:32) O2 (10/01/20:32) Monitor-Rhythm Ecg Trace Only (10/01/20 23:32) BNP (10/01/20:32) Cbc With Automated Diff (10/01/20:) Comprehensive Metabolic Panel (10/01/20:32) Creatine Kinase (10/01/20:) Creatine Kinase Mb (10/01/20:32) Hs C Reactive Protein (10/01/20 23:32) Lactic Acid Analyzer (10/01/20:32) Magnesium (10/01/20 23:32) Procalcitonin (Pct) (10/01/20:) Protime With Inr (10/01/20:) Partial Thromboplastin Time (10/01/20 23:32) Ua Culture If Indicated (10/01/20:32) Blood Culture (10/01/20 23:32) Influenza A And B Antigens (10/01/20 23:32) Erythrocyte Sedimentation Rate (10/01/20 23:32) Myoglobin Serum (10/01/20 23:32) Troponin I (10/01/20 23:32) LDH (10/01/20 23:32) Coronavirus Sars-Cov-2 So 2018 (10/01/20 23:32) Covid 19 Inhouse Test (10/01/20 23:32) Urine Culture (10/01/20 23:32) Ed Iv/Invasive Line Start (10/01/20 23:32) Vital Signs Adult Sepsis Patie Q15M (10/01/20 23:32) Remove Rings In Anticipation O (10/01/20 23:32) Ns Iv 1000 Ml (Sodium Chloride 0.9%) (10/01/20 23:45) Chest 1 View, Ap/Pa Only (10/02/20 00:01) Arterial Blood Gas (10/02/20 00:33) D50w (Emergency) Syringe (Dextrose 50% 5 (10/02/20 00:45) Insulin (Regular) Human (Novolin R (Per (10/02/20 00:45) Calcium Gluconate 10% Inj (Calcium Glu (10/02/20 00:45) Albuterol Inhaler (Ventolin Hfa) (10/02/20 02:00) Sodium Polystyrene Sulfonate (Kayexalate (10/02/20 00:45) Ed Iv/Invasive Line Start (10/02/20 00:34) Ns Iv 1000 Ml (Sodium Chloride 0.9%) (10/02/20 00:45) Ns (Ivpb) (Sodium Chloride 0.9% Ivpb Bag (10/02/20 00:43) Arterial Blood Gas (10/02/20 01:40) Sodium Bicarbonate 8.4% Vial (Sodium Bic (10/02/20 02:00) Medications Given in ED Current Medications Medications Dose Ordered Sig/Tiffany Route Start Time Stop Time Status Last Admin Dose Admin Calcium Gluconate 4.65 meq ONCE ONCE IV 10/02/20 00:45 10/02/20 00:46 DC 10/02/20 00:49 4.65 MEQ Dextrose 50 ml ONCE ONCE IV 10/02/20 00:45 10/02/20 00:46 DC 10/02/20 00:49 50 ML Insulin Human Regular 10 unit ONCE ONCE SC 10/02/20 00:45 10/02/20 00:46 DC 10/02/20 00:48 10 UNIT Sodium Polystyrene Sulfonate 15 gm ONCE ONCE PO 10/02/20 00:45 10/02/20 00:46 DC 10/02/20 00:48 15 GM Sodium Bicarbonate 100 meq ONCE ONCE IV 10/02/20 02:00 10/02/20 02:01 DC 10/02/20 02:20 100 MEQ Sodium Chloride 50 ml @ STK-MED ONCE .ROUTE 10/02/20 00:43 10/02/20 00:46 DC 10/02/20 01:54 0 MLS/HR Vital Signs/I&O 10/01/20 10/02/20 10/02/20 10/02/20 23:34 01:59 02:00 02:31 Temp 36.0 36.3 Pulse 84 80 80 Resp 15 16 14 B/P (MAP) 100/61 (74) 119/50 (73) 119/71 Pulse Ox 100 97 97 97 O2 Delivery Room Air Room Air Nasal Cannula Room Air O2 Flow Rate 2.00 FiO2 100 Capillary Refill : Less Than 3 Seconds Blood Pressure Mean: 73 Progress Note : Progress Note PT PLACED IN ISOLATION ROOM PPE WORN AT ALL TIMES COVID-19 TESTING PERFORMED RAPID COVID-19 TEST WAS NEGATIVE. SEND OUT TEST DONE FOR COVID-19 PCR TEST. BP 100 SYSTOLIC ON ARRIVAL, HR IN 80'S GIVEN IV FLUIDS BP REMAINED > 100 SYSTOLIC FOR ENTIRE ER STAY O2 SATS 96-98% ON ROOM AIR THROUGHOUT ER STAY GIVEN KAYEXELATE, D50 AND INSULIN, CALCIUM GLUCONATE, ALBUTEROL INHALER TREATMENT FOR ELEVATED POTASSIUM GIVEN BICARB FOR ACIDOSIS PT HAD NO OTHER COMPLAINTS DURING ER STAY NO DETERIORATION IN PT'S CONDITION DURING ER STAY ECG Initial ECG Impression Date: Oct 01, 2020 Initial ECG Impression Time: 23:47 Initial ECG Rate: 85 Initial ECG Rhythm: Normal Sinus Diagnostic Imaging Comments CXR--NO ACUTE PROCESS, PENDING RADIOLOGIST REVIEW Reviewed: Reviewed by Me Departure Communication (Admissions) 004--CALLED DARYL, ON FULL DIVERSION 004--CALLED ELIZABETH, BOTH ELIZABETH HUSSEIN AND NASIR ON FULL DIVERSION [id number]--CALLED [facility]. [phone]--PAGING PHYSICIAN 010--[facility] CALLED. SPOKE WITH BOTH DR. GUERRERO ( CRITICAL CARE ) AND [facility]MER--ACCEPT PT FOR ADMIT TO MEDICAL FLOOR WITH TELEMETRY. NO ADDITIONAL RECOMMENDATIONS. Impression Primary Impression: Renal failure Additional Impressions: Hyperkalemia GENERALIZED WEAKNESS Hypotension Acidosis Anemia Non-insulin dependent diabetes mellitus Disposition: XFER SHT-TRM HOSP Condition: Improved Transfer Transfer Reason: Exceeds level of care Transfer Facility: [facility] Method of Transfer: EMS Departure-Patient Inst. Referrals: ROBINSON KIM DO (PCP/Family) Primary Care Physician ELIZABETH WITT DO Oct 02, 2020 02:31
--- NOTE | 2020-10-02 06:25 | Diagnostic Imaging Report ---
INDICATION: Weakness. COMPARISON: None available TECHNIQUE: Single radiograph of the chest dated 10/02/2020. FINDINGS: The cardiac silhouette is at the upper limits of normal in size. No significant pulmonary vascular congestion. The lungs are clear. No pleural effusion. No pneumothorax. Surgical clips within right upper quadrant in the abdomen. No acute osseous abnormality. IMPRESSION: No acute cardiopulmonary abnormality. Dictated by: Dictated on workstation # [id number]
== END 2020-10-02 02:54 | disposition short-term general hospital (02) ==
LOC: EDUNIT# 23:29 → ER 23:31
DX: E11.22 Type 2 diabetes mellitus with diabetic chronic kidney disease (principal); E87.5 Hyperkalemia; N18.30 Chronic kidney disease, stage 3 unspecified; I95.9 Hypotension, unspecified; R53.1 Weakness; E87.2 Acidosis; D64.9 Anemia, unspecified; F41.9 Anxiety disorder, unspecified; E78.00 Pure hypercholesterolemia, unspecified; F32.9 Major depressive disorder, single episode, unspecified; E03.9 Hypothyroidism, unspecified; E66.01 Morbid (severe) obesity due to excess calories; Z68.43 Body mass index [BMI] 50.0-59.9, adult; Z85.850 Personal history of malignant neoplasm of thyroid; Z79.890 Hormone replacement therapy; Z20.828 Contact with and (suspected) exposure to other viral communicable diseases; Z79.84 Long term (current) use of oral hypoglycemic drugs
CPT/HCPCS: 51702; 71045; 80053; 81000; 82550; 82553; 82805; 82962; 83605; 83615; 83735; 83874; 83880; 84145; 84484; 85025; 85610; 85652; 85730; 86141; 87040; 87077; 87088; 87804; 93005; 93041; 99285; U0002; 36415; 87635

== ENCOUNTER 2020-10-14 05:13 | Emergency (ER) | payer MEDICARE ==
[~2020-10-14] VITALS: Ht 155 cm; Wt 124.2 kg
--- NOTE | 2020-10-14 05:25 | NUR ---
pt denies being able to void at this time.
[2020-10-14 05:49] LABS: BASOPHILS % (AUTO) 0 % (0-10); EOSINOPHILS % (AUTO) 0 % (0-10); HEMATOCRIT 26 % (35-52); HEMOGLOBIN 7.7 g/dL (11.5-16.0); LYMPHOCYTES # (AUTO) 1.1 10^3/uL (1.0-4.0); LYMPHOCYTES % (AUTO) 7 % (12-44); MEAN CORPUSCULAR HEMOGLOBIN 29 pg (25-34); MEAN CORPUSCULAR HGB CONC 30 g/dL (32-36); MEAN CORPUSCULAR VOLUME 96 fL (80-99); MEAN PLATELET VOLUME 11.2 fL (9.0-12.2); MONOCYTES # (AUTO) 0.9 10^3/uL (0.0-1.0); MONOCYTES % (AUTO) 6 % (0-12); NEUTROPHILS # (AUTO) 12.6 10^3/uL (1.8-7.8); NEUTROPHILS % (AUTO) 86 % (42-75); PLATELET COUNT 160 10^3/uL (130-400); WHITE BLOOD COUNT 14.7 10^3/uL (4.3-11.0)
[2020-10-14 06:00] LABS: ALBUMIN 2.5 GM/DL (3.2-4.5)
[2020-10-14 06:01] LABS: POTASSIUM 2.6 MMOL/L (3.6-5.0)
[2020-10-14 06:03] LABS: TOTAL PROTEIN 6.3 GM/DL (6.4-8.2)
[2020-10-14 06:05] LABS: BILIRUBIN,TOTAL 1.6 MG/DL (0.1-1.0)
[2020-10-14 06:06] LABS: CREATININE SERUM 5.61 MG/DL (0.60-1.30)
--- NOTE | 2020-10-14 06:08 | ED General ---
General Chief Complaint: General Problems/Pain Stated Complaint: WEAKNESS Nursing Triage Note: c/o generalized weakness x2 weeks. dc'd from [facility] 1 week ago for weakness/renal failure. Nursing Sepsis Screen: No Definite Risk Source of Information: Patient, Old Records Exam Limitations: No Limitations (DANIELE ALVA MD) History of Present Illness Date Seen by Provider: Oct 14, 2020 Time Seen by Provider: 05:14 Initial Comments This is 65-year-old woman presents to the emergency room with complaints of generalized weakness. She has experienced progressive weakness since returning from [facility] where she was admitted on October 01 for renal failure. Her creatinine was 6.8 at that time. She reports biopsy was performed there that indicated necrosis. She does not report a specific diagnosis. Today she has been too weak to walk. Her mucous membranes are quite dry. (DANIELE ALVA MD) Allergies and Home Medications Allergies Coded Allergies: adhesive tape (Unverified Adverse Reaction, Unknown, 11/19/17) Home Medications Amitriptyline HCl 100 Mg Tablet, 100 MG PO HS, (Reported) Atorvastatin Calcium 20 Mg Tablet, 20 MG PO DAILY, (Reported) Cholecalciferol 5,000 Unit Capsule, 5,000 UNIT PO DAILY, (Reported) Doxycycline Monohydrate 100 Mg Capsule, 100 MG PO BID, (Reported) Duloxetine HCl 30 Mg Capsule.dr, 30 MG PO DAILY, (Reported) Gabapentin 800 Mg Tablet, 800 MG PO HS, (Reported) Hydrocodone Bit/Acetaminophen 1 Each Tablet, 1 TAB PO TID PRN for PAIN-MILD TO MODERATE, (Reported) Latanoprost 2.5 Ml Drops, 1 DROP OU HS, (Reported) Levothyroxine Sodium 175 Mcg Tablet, 175 MCG PO DAILY, (Reported) Metformin HCl 500 Mg Tab.er.24h, 1,000 MG PO DAILY, (Reported) Patient Home Medication List Home Medication List Reviewed: Yes (DANIELE ALVA MD) Review of Systems Review of Systems Constitutional: see HPI, weakness EENTM: no symptoms reported Respiratory: no symptoms reported Cardiovascular: no symptoms reported Gastrointestinal: no symptoms reported Genitourinary: see HPI : No Musculoskeletal: no symptoms reported Skin: no symptoms reported Psychiatric/Neurological: No Symptoms Reported Hematologic/Lymphatic: No Symptoms Reported Immunological/Allergic: no symptoms reported (DANIELE ALVA MD) Past Wqcqncj-Ubfjli-Ffqsao Hx Past Med/Social Hx: Reviewed Nursing Past Med/Soc Hx (DANIELE ALVA MD) Patient Social History Alcohol Use: Denies Use Recreational Drug Use: No Smoking Status: Never a Smoker Recent Foreign Travel: No Contact w/Someone Who Travel: No Recent Infectious Disease Expo: No Recent Hopitalizations: Yes (dc'd o.p. [facility] 10/07/20) (DANIELE ALVA MD) Immunizations Up To Date Tetanus Booster (TDap): Less than 5yrs PED Vaccines UTD: Yes Date of Pneumonia Vaccine: Oct 20, 2009 Date of Influenza Vaccine: Aug 03, 2016 (DANIELE ALVA MD) Seasonal Allergies Seasonal Allergies: No (DANIELE ALVA MD) Past Medical History Surgeries: Yes (PILONIDAL CYST/ABSCESS;MULTIPLE DEBRIDEMENTS FOR NECROTIZING FASCITIS; ) Abdominal, Gallbladder, Thyroidectomy Respiratory: No Cardiac: Yes High Cholesterol, Hypertension Neurological: Yes Neuropathy : No Reproductive Disorders: No Female Reproductive Disorders: 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 HIV/AIDS: No Genitourinary: Yes (STAGE 3 RENAL FAILURE--NO DIALYSIS) Renal Failure Gastrointestinal: Yes (GASTRIC BYPASS) Musculoskeletal: Yes (CHRONIC GENERALIZED PAIN ) Arthritis, Chronic Back Pain Endocrine: Yes (THYROID CANCER;MORBID OBESITY) Hypothyroidsim, Diabetes, Non-Insulin dep HEENT: No Hearing Impairment: Denies Cancer: Yes Thyroid Did You Recieve Any Treatments: Yes What Type of Treatment Did You: Surgical Intervention Psychosocial: Yes Anxiety, Depression Integumentary: Yes (HX- NECROTIZING FASCITIS IN 1989;PILONIDAL CYST/ABSCESS) Blood Disorders: No (DANIELE ALVA MD) Family Medical History PAST SURGICAL /PROCEDURAL HISTORY: -FLEXIBLE SIGMOIDOSCOPY 10/2013 -GASTRIC BYPASS -THYROIDECTOMY 2009 -CHOLECYSTECTOMY (DANIELE ALVA MD) Physical Exam Vital Signs Vital Signs - First Documented 10/14/20 05:15 Temp 37.9 Pulse 102 Resp 18 B/P (MAP) 126/70 (88) Pulse Ox 99 O2 Delivery Room Air (ROSALVA PATEL MD) Vital Signs Capillary Refill : Less Than 3 Seconds (DANIELE ALVA MD) Height, Weight, BMI Height: 5'1.00" Weight: 298lbs. 2.0oz. 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 Norm as Tested Skin: Normal Color, Warm/Dry (DANIELE ALVA MD) Focused Exam Lactate Level 10/14/20 08:38: Lactic Acid Level 1.33 (ROSALVA PATEL MD) Progress/Results/Core Measures Suspected Sepsis Recent Fever Within 48 Hours: No Infection Criteria Present: None New/Unexplained Altered Menta: No Sepsis Screen: No Definite Risk SIRS Temperature: Pulse: 102 Respiratory Rate: 18 Laboratory Tests 10/14/20 05:18: White Blood Count 14.7H Blood Pressure 126 /70 Mean: 88 10/14/20 08:38: Lactic Acid Level 1.33 Laboratory Tests 10/14/20 05:18: Creatinine 5.61H, Platelet Count 160, Total Bilirubin 1.6H (DANIELE ALVA MD) Results/Orders Lab Results Laboratory Tests Test 10/14/20 05:18 10/14/20 08:00 10/14/20 08:38 10/14/20 09:06 Range/Units White Blood Count 14.7 H 4.3-11.0 10^3/uL Red Blood Count 2.66 L 3.80-5.11 10^6/uL Hemoglobin 7.7 L 11.5-16.0 g/dL Hematocrit 26 L 35-52 % Mean Corpuscular Volume 96 80-99 fL Mean Corpuscular Hemoglobin 29 25-34 pg Mean Corpuscular Hemoglobin Concent 30 L 32-36 g/dL Red Cell Distribution Width 16.5 H 10.0-14.5 % Platelet Count 160 130-400 10^3/uL Mean Platelet Volume 11.2 9.0-12.2 fL Immature Granulocyte % (Auto) 1 % Neutrophils (%) (Auto) 86 H 42-75 % Lymphocytes (%) (Auto) 7 L 12-44 % Monocytes (%) (Auto) 6 0-12 % Eosinophils (%) (Auto) 0 0-10 % Basophils (%) (Auto) 0 0-10 % Neutrophils # (Auto) 12.6 H 1.8-7.8 10^3/uL Lymphocytes # (Auto) 1.1 1.0-4.0 10^3/uL Monocytes # (Auto) 0.9 0.0-1.0 10^3/uL Eosinophils # (Auto) 0.0 0.0-0.3 10^3/uL Basophils # (Auto) 0.0 0.0-0.1 10^3/uL Immature Granulocyte # (Auto) 0.1 0.0-0.1 10^3/uL Neutrophils % (Manual) 79 % Lymphocytes % (Manual) 9 % Monocytes % (Manual) 5 % Band Neutrophils 7 % Anisocytosis SLIGHT Blood Morphology Comment Sodium Level 138 135-145 MMOL/L Potassium Level 2.6 L 3.6-5.0 MMOL/L Chloride Level 106 98-107 MMOL/L Carbon Dioxide Level 16 L 21-32 MMOL/L Anion Gap 16 H 5-14 MMOL/L Blood Urea Nitrogen 70 H 7-18 MG/DL Creatinine 5.61 H 0.60-1.30 MG/DL Estimat Glomerular Filtration Rate 8 BUN/Creatinine Ratio 12 Glucose Level 161 H 70-105 MG/DL Calcium Level 6.0 *L 8.5-10.1 MG/DL Corrected Calcium 7.2 L 8.5-10.1 MG/DL Magnesium Level 1.3 L 1.6-2.4 MG/DL Total Bilirubin 1.6 H 0.1-1.0 MG/DL Aspartate Amino Transf (AST/SGOT) 22 5-34 U/L Alanine Aminotransferase (ALT/SGPT) 17 0-55 U/L Alkaline Phosphatase 70 40-136 U/L Total Protein 6.3 L 6.4-8.2 GM/DL Albumin 2.5 L 3.2-4.5 GM/DL Thyroid Stimulating Hormone (TSH) 0.26 L 0.35-4.94 UIU/ML Free Thyroxine 1.24 0.70-1.48 NG/DL Urine Color YELLOW Urine Clarity CLOUDY Urine pH 6.5 5-9 Urine Specific [place] 1.010 L 1.016-1.022 Urine Protein 1+ H NEGATIVE Urine Glucose (UA) NEGATIVE NEGATIVE Urine Ketones NEGATIVE NEGATIVE Urine Nitrite NEGATIVE NEGATIVE Urine Bilirubin NEGATIVE NEGATIVE Urine Urobilinogen 0.2 < = 1.0 MG/DL Urine Leukocyte Esterase 3+ H NEGATIVE Urine RBC (Auto) 2+ H NEGATIVE Urine RBC 2-5 H /HPF Urine WBC >100 H /HPF Urine Crystals NONE /LPF Urine Bacteria LARGE H /HPF Urine Casts NONE /LPF Urine Mucus NEGATIVE /LPF Urine Culture Indicated YES Lactic Acid Level 1.33 0.50-2.00 MMOL/L Coronavirus 2019 (JAM) Negative Negative (ROSALVA PATEL MD) My Orders Orders - ROSALVA PATEL MD Ekg Tracing (10/14/20 06:19) Ns Iv 1000 Ml (Sodium Chloride 0.9%) (10/14/20 06:28) Ns Iv 1000 Ml (Sodium Chloride 0.9%) (10/14/20 06:45) Magnesium 1 Gm/100 Ml Ivpb (Magnesium Tran (10/14/20 06:45) Potassium Cl 10meq/50ml Ivpb (Kcl 10 Meq (10/14/20 06:45) Covid 19 Inhouse Test (10/14/20 08:24) Blood Culture (10/14/20 08:28) Ns Iv 1000 Ml (Sodium Chloride 0.9%) (10/14/20 08:30) Ceftriaxone For Iv Use (Rocephin For I (10/14/20 08:30) Lactic Acid Analyzer (10/14/20 08:34) Calcium Gluconate 10% Inj (Calcium Glu (10/14/20 08:45) Ondansetron Injection (Zofran Injectio (10/14/20 10:41) (ROSALVA PATEL MD) Medications Given in ED Current Medications Medications Dose Ordered Sig/Tiffany Route Start Time Stop Time Status Last Admin Dose Admin Calcium Gluconate 4.65 meq ONCE ONCE IV 10/14/20 08:45 10/14/20 08:46 DC 10/14/20 09:15 4.65 MEQ Ceftriaxone Sodium 1000 mg/ Sterile Water 10 ml @ 200 mls/hr ONCE ONCE IV 10/14/20 08:30 10/14/20 08:32 DC 10/14/20 09:15 200 MLS/HR Magnesium Sulfate/ Dextrose 100 ml @ 100 mls/hr ONCE ONCE IV 10/14/20 06:45 10/14/20 07:44 DC 10/14/20 06:39 100 MLS/HR Ondansetron HCl 4 mg STK-MED ONCE .ROUTE 10/14/20 10:41 10/14/20 10:45 DC 10/14/20 10:45 8 MG Potassium Chloride 50 ml @ 50 mls/hr ONCE ONCE IV 10/14/20 06:45 10/14/20 07:44 DC 10/14/20 06:39 50 MLS/HR (ROSALVA PATEL MD) Vital Signs/I&O 10/14/20 10/14/20 05:15 10:51 Temp 37.9 Pulse 102 98 Resp 18 19 B/P (MAP) 126/70 (88) 124/69 Pulse Ox 99 99 O2 Delivery Room Air Room Air (ROSALVA PATEL MD) Vital Signs/I&O Capillary Refill : Less Than 3 Seconds (DANIELE ALVA MD) Blood Pressure Mean: 88 Progress Note : Time: 06:59 Progress Note Care assumed at shift change, 65-year-old female presents to the emergency department with a chief complaint of generalized weakness and feeling dehydrated. Patient states that she has had similar symptoms for the last 2 weeks. She recently had a weeks hospital stay at [facility] with hyperkalemia and acute renal failure. Patient states that she had a kidney biopsy done while she was in the hospital and was told that she had "ATN". Patient states that she was to follow-up this Friday with some repeat laboratory studies. The patient states that she is continued to feel very weak and fatigued and every time she gets up she says that she basically just falls to the floor. She denies any chest pain, shortness of breath. She denies abdominal pain. She denies problems with bowel or bladder. No recent fevers, chills or productive cough. She states that she is chronically fatigued and can sleep all the time. On examination the patient is significantly dehydrated with a blood pressure of 129/76 while lying in the bed. Heart is regular lungs are clear abdomen is soft. No lower extremity edema is noted. Patient has significant laboratory findings with hypokalemia, hypomagnesemia, hypocalcemia. She is also quite anemic with a hemoglobin of 7.7. Patient denies any recent black or bloody stools or blood in her urine. Patient states that she received "5 bags of iron" while she was hospitalized at [facility] last week. Patient also remains with significant renal failure with a serum creatinine of 5.6. Anticipate talking with Dr. Khalil who is on for the patient's primary care physician this morning for some guidance on admission of this very pleasant patient. 0830 Discussed with Irina the nurse practitioner on for critical care at [facility] who accepts the patient on behalf of Dr. Elliott. Patient is noted to have a urinary tract infection. Will be given 1 g of Rocephin as well as started on some more IV fluids, normal saline at 125 an hour. Patient is informed of the plan of care she is agreeable. [facility] requires a Covid screen. This also will be obtained. (ROSALVA PATEL MD) ECG Initial ECG Impression Date: Oct 14, 2020 Initial ECG Impression Time: 06:45 Initial ECG Rate: 93 Initial ECG Rhythm: Normal Sinus Initial ECG Intervals: QT Initial ECG Impression: Nonspecific Changes (ROSALVA PATEL MD) Critical Care Note Critical Care Start Time: 06:00 Stop Time: 08:30 Total Time (minutes) 45 minutes critical care time in the evaluation and management of this patient with acute renal failure, hypokalemia, hypomagnesemia, hypocalcemia, profound dehydration; management of fluid resuscitation, antibiotics for urinary tract infection; rule out sepsis (ROSALVA PATEL MD) Departure Impression Primary Impression: Renal failure Qualified Codes: N17.0 - Acute kidney failure with tubular necrosis; N18.9 - Chronic kidney disease, unspecified Additional Impressions: Hypokalemia Hypomagnesemia Hypocalcemia Disposition: SHT-TRM HOSP Condition: Stable Transfer Transfer Reason: Exceeds level of care Time Spoke to Accepting Phy: 08:30 Transfer Progress Notes Discussed with Irina the midlevel provider for the construction recruiter, Dr. Elliott. At [facility]. She accepts the patient for transfer Transfer Time: 09:30 Method of Transfer: EMS (ROSALVA PATEL MD) Departure-Patient Inst. Referrals: ROBINSON KIM DO (PCP/Family) Primary Care Physician Copy Copies To 1: ROBINSON KIM JOSHUA T MD Oct 14, 2020 06:08 ROSALVA PATEL MD Oct 14, 2020 07:02
[2020-10-14 06:09] LABS: MAGNESIUM 1.3 MG/DL (1.6-2.4)
[2020-10-14 06:16] LABS: ANISOCYTOSIS SLIGHT; BAND NEUTROPHILS 7 %; LYMPHOCYTES % (MANUAL) 9 %; MONOCYTES % (MANUAL) 5 %; NEUTROPHILS % (MANUAL) 79 %
[2020-10-14] MEDS ORDERED: NS IV 1000 ML 1,000 ML IV STA (06:28)
[2020-10-14 06:30] LABS: FREE T4 (FREE THYROXINE) 1.24 NG/DL (0.70-1.48)
[2020-10-14] MEDS ORDERED: NS IV 1000 ML 1,000 ML IV SCH ×2 (06:45→08:30)
[2020-10-14] MEDS ORDERED: POTASSIUM CL 10MEQ/50ML IVPB 50 ML IV ONE (06:45)
[2020-10-14] MEDS ORDERED: MAGNESIUM 1 GM/100 ML IVPB 100 ML IV ONE (06:45)
[2020-10-14 08:10] LABS: BILIRUBIN,URINE NEGATIVE (NEGATIVE); CLARITY,URINE CLOUDY; COLOR,URINE YELLOW; GLUCOSE, URINE (UA) NEGATIVE (NEGATIVE); KETONES,URINE NEGATIVE (NEGATIVE); LEUKOCYTE ESTERASE ,URINE 3+ (NEGATIVE); NITRITE,URINE NEGATIVE (NEGATIVE); PH,URINE 6.5 (5-9); PROTEIN,URINE 1+ (NEGATIVE)
[2020-10-14 08:18] LABS: BACTERIA,URINE LARGE /HPF; WBC,URINE >100 /HPF
[2020-10-14] MEDS ORDERED: cefTRIAXone FOR IV USE 1,000 MG in WATER (STERILE) FOR INJECTION 10 ML IV ONE (08:30)
[2020-10-14] MEDS ORDERED: CALCIUM GLUC. 10% 4.65 MEQ/10 ML VIAL IV ONE (08:45)
--- NOTE | 2020-10-14 10:40 | NUR ---
625ML URINE DRAINED FROM VILLAVICENCIO
[2020-10-14] MEDS ORDERED: ONDANSETRON 4 MG/2 ML (SDV) Z0FRAN ONE (10:41)
[2020-10-14 10:51] VITALS: BP 124/69
== END 2020-10-14 10:51 | disposition short-term general hospital (02) ==
LOC: EDUNIT# 05:13 → ER 05:14
DX: E11.22 Type 2 diabetes mellitus with diabetic chronic kidney disease (principal); N18.30 Chronic kidney disease, stage 3 unspecified; I12.9 Hypertensive chronic kidney disease with stage 1 through stage 4 chronic kidney disease, or unspecified chronic kidney disease; E87.6 Hypokalemia; E83.42 Hypomagnesemia; E83.51 Hypocalcemia; E66.01 Morbid (severe) obesity due to excess calories; E78.00 Pure hypercholesterolemia, unspecified; E03.9 Hypothyroidism, unspecified; F32.9 Major depressive disorder, single episode, unspecified; F41.9 Anxiety disorder, unspecified; G89.29 Other chronic pain; M54.9 Dorsalgia, unspecified; Z68.43 Body mass index [BMI] 50.0-59.9, adult; Z85.850 Personal history of malignant neoplasm of thyroid; Z79.890 Hormone replacement therapy; Z20.828 Contact with and (suspected) exposure to other viral communicable diseases; Z79.84 Long term (current) use of oral hypoglycemic drugs; Z79.891 Long term (current) use of opiate analgesic
CPT/HCPCS: 51702; 80053; 81000; 83605; 83735; 84439; 84443; 85007; 85027; 87040; 87077; 87088; 99284; U0002; 36415; 87635

== ENCOUNTER 2021-03-06 09:36 | Observation (INO) | payer MEDICARE ==
[~2021-03-06] VITALS: Ht 154.9 cm; Wt 113.0 kg
[2021-03-06] VITALS (9 sets, daily range): BP systolic 110–147; BP diastolic 50–64
[2021-03-06] MEDS ORDERED: PATIENT MAY USE OWN MEDS, ALL PO SCH (10:15)
[2021-03-06] MEDS ORDERED: ONDANSETRON 4 MG/2 ML (SDV) Z0FRAN IV PRN (10:15)
[2021-03-06] MEDS ORDERED: fentaNYL INJ 100 MCG/2 ML AMP IVP PRN (10:30)
[2021-03-06] MEDS ORDERED: PIPERACILLIN/TAZO 4.5 GM/NS 100 ML IV NR ×2 (12:00)
[2021-03-06] MEDS: NS IV 1000 ML 1,000 ML IV SCH ×2 (12:06→18:09)
[2021-03-06 12:53] LABS: BASOPHILS % (AUTO) 0 % (0-10); EOSINOPHILS # (AUTO) 0.1 10^3/uL (0.0-0.3); EOSINOPHILS % (AUTO) 1 % (0-10); HEMATOCRIT 23 % (35-52); LYMPHOCYTES # (AUTO) 1.1 10^3/uL (1.0-4.0); LYMPHOCYTES % (AUTO) 10 % (12-44); MEAN CORPUSCULAR HEMOGLOBIN 32 pg (25-34); MEAN CORPUSCULAR HGB CONC 30 g/dL (32-36); MEAN CORPUSCULAR VOLUME 107 fL (80-99); MONOCYTES # (AUTO) 0.5 10^3/uL (0.0-1.0); MONOCYTES % (AUTO) 5 % (0-12); NEUTROPHILS # (AUTO) 8.5 10^3/uL (1.8-7.8); NEUTROPHILS % (AUTO) 83 % (42-75); PLATELET COUNT 164 10^3/uL (130-400); WHITE BLOOD COUNT 10.3 10^3/uL (4.3-11.0)
[2021-03-06 12:55] LABS: HEMOGLOBIN 6.8 g/dL (11.5-16.0)
[2021-03-06 13:12] LABS: ALBUMIN 2.8 GM/DL (3.2-4.5); BILIRUBIN,TOTAL 0.5 MG/DL (0.1-1.0); CALCIUM 6.4 MG/DL (8.5-10.1); CREATININE SERUM 2.48 MG/DL (0.60-1.30); POTASSIUM 3.8 MMOL/L (3.6-5.0)
[2021-03-06] MEDS ORDERED: NS IV 500 ML 500 ML IV SCH (13:15)
[2021-03-06] MEDS ORDERED: CYCL1DRO OU (14:16)
[2021-03-06] MEDS ORDERED: CEPH500C PO (14:16)
[2021-03-06] MEDS ORDERED: AMLO2.5T4 PO (14:16)
[2021-03-06] MEDS ORDERED: LATA2.5D19 OU (14:16)
[2021-03-06] MEDS ORDERED: ATOR20TA66 PO (14:16)
[2021-03-06] MEDS ORDERED: ERGO50006 PO (14:16)
[2021-03-06] MEDS ORDERED: GABA-486 PO (14:16)
[2021-03-06] MEDS ORDERED: LEVO175T5 PO (14:16)
[2021-03-06] MEDS ORDERED: MIRT15TA6 PO (14:16)
[2021-03-06] MEDS ORDERED: TIZA4TAB4 PO (14:16)
--- NOTE | 2021-03-06 15:00 | Consultation ---
History of Present Illness History of Present Illness Patient Consulted On(eliza/time) 03/06/21 14:58 Date Seen by Provider: March 06, 2021 Time Seen by Provider: 15:00 Reason for Visit: vulvar abscess Allergies and Home Medications Allergies Coded Allergies: No Known Allergies (Verified Allergy, Unknown, 03/06/21) adhesive tape (Unverified Adverse Reaction, Unknown, 11/19/17) Home Medications Amlodipine Besylate 2.5 Mg Tablet, 2.5 MG PO DAILY, (Reported) Last Action: Reviewed Atorvastatin Calcium 20 Mg Tablet, 20 MG PO DAILY, (Reported) Last Action: Reviewed Cephalexin 500 Mg Capsule, 500 MG PO TID, (Reported) FILLED 03-05-2021 #30/10 DAY SUPPLY Last Action: Reviewed Cyclosporine 1 Each Droperette, 1 DROP OU DAILY, (Reported) Last Action: Reviewed Ergocalciferol (Vitamin D2) 1,250 Mcg Capsule, 1,250 MCG PO SUN, (Reported) Last Action: Reviewed Gabapentin 100 Mg Capsule, 200 MG PO HS, (Reported) TAKES 2 (100MG) CAPS Last Action: Reviewed Latanoprost 2.5 Ml Drops, 1 DROP OU HS, (Reported) Last Action: Reviewed Levothyroxine Sodium 175 Mcg Tablet, 175 MCG PO DAILY, (Reported) Last Action: Reviewed Mirtazapine 15 Mg Tablet, 15 MG PO HS, (Reported) Last Action: Reviewed Tizanidine HCl 4 Mg Tablet, 4 MG PO BID PRN for MUSCLE SPASMS, (Reported) Last Action: Reviewed Past Hoteaeq-Olavfh-Hentuz Hx Patient Social History Recent Hopitalizations: Yes (dc'd o.p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 HIV/AIDS: No Genitourinary: Yes (STAGE 3 RENAL FAILURE--NO DIALYSIS) Renal Failure Gastrointestinal: Yes (GASTRIC BYPASS) Musculoskeletal: Yes (CHRONIC GENERALIZED PAIN ) Arthritis, Chronic Back Pain Endocrine: Yes (THYROID CANCER;MORBID OBESITY) Hypothyroidsim, Diabetes, Non-Insulin dep HEENT: No Hearing Impairment: Denies Cancer: Yes Thyroid Did You Recieve Any Treatments: Yes What Type of Treatment Did You: Surgical Intervention Psychosocial: Yes Anxiety, Depression Integumentary: Yes (HX- NECROTIZING FASCITIS IN 1989;PILONIDAL CYST/ABSCESS) Blood Disorders: No Family Medical History PAST SURGICAL /PROCEDURAL HISTORY: -FLEXIBLE SIGMOIDOSCOPY 10/2013 -GASTRIC BYPASS -THYROIDECTOMY 2009 -CHOLECYSTECTOMY Physical Exam-General Problems Physical Exam Vital Signs Capillary Refill : Assessment/Plan Assessment/Plan Admission Diagnosis/Plan 1. Left perineal abscess with cellulitis 2. history of necrotizing fasciitis JOSE RENDON DO March 06, 2021 15:00
[2021-03-06] MEDS ORDERED: BENZOCAINE/MENTHOL (DERMOPLAST) 56 ML CAN TP PRN (15:30)
[2021-03-06] MEDS ORDERED: VANCOMYCIN INJECTION 1,000 MG in NS (IVPB) 250 ML IV SCH (15:30)
[2021-03-06] MEDS ORDERED: PIPERACILLIN/TAZOBACTAM (BULK) 4.5 GM in NS (IVPB) 100 ML IV SCH (16:00)
[2021-03-06] MEDS ORDERED: VANCOMYCIN 1,750 MG/NS 500 ML IVPB IV NR ×2 (16:00)
[2021-03-06] MEDS: inSUlin ASPART (NovoLOG) 1 UNIT/0.01 ML (CHARGE PER UNIT) SC SCH ×2 (16:01→21:25)
--- NOTE | 2021-03-06 17:09 | History & Physical ---
History of Present Illness History of Present Illness Reason for visit/HPI This is a 65 year old female with a history of a draining right labial abscess who was seen in my office yesterday. She was having worsening pain and swelling today so it was decided to admit her for IV antibiotics and surgical consult. Date of Admission March 06, 2021 at 10:30 Date Seen by a Provider: March 06, 2021 Time Seen by a Provider: 12:20 I consulted on this patient on 03/06/21 16:56 Attending Physician Arianna Ramos DO Admitting Physician Arianna Ramos DO Consult Allergies and Home Medications Allergies Coded Allergies: No Known Allergies (Verified Allergy, Unknown, 03/06/21) adhesive tape (Unverified Adverse Reaction, Unknown, 11/19/17) Home Medications Amlodipine Besylate 2.5 Mg Tablet, 2.5 MG PO DAILY, (Reported) Last Action: Reviewed Atorvastatin Calcium 20 Mg Tablet, 20 MG PO DAILY, (Reported) Last Action: Reviewed Cephalexin 500 Mg Capsule, 500 MG PO TID, (Reported) FILLED 03-05-2021 #30/10 DAY SUPPLY Last Action: Reviewed Cyclosporine 1 Each Droperette, 1 DROP OU DAILY, (Reported) Last Action: Reviewed Ergocalciferol (Vitamin D2) 1,250 Mcg Capsule, 1,250 MCG PO SUN, (Reported) Last Action: Reviewed Gabapentin 100 Mg Capsule, 200 MG PO HS, (Reported) TAKES 2 (100MG) CAPS Last Action: Reviewed Latanoprost 2.5 Ml Drops, 1 DROP OU HS, (Reported) Last Action: Reviewed Levothyroxine Sodium 175 Mcg Tablet, 175 MCG PO DAILY, (Reported) Last Action: Reviewed Mirtazapine 15 Mg Tablet, 15 MG PO HS, (Reported) Last Action: Reviewed Tizanidine HCl 4 Mg Tablet, 4 MG PO BID PRN for MUSCLE SPASMS, (Reported) Last Action: Reviewed Patient Home Medication List Home Medication List Reviewed: Yes Past Uktczlz-Msoxsk-Lwxyvj Hx Past Med/Social Hx: Reviewed Nursing Past Med/Soc Hx Patient Social History Marrital Status: single Employed/Student: unemployed Recent Foreign Travel: No Contact w/other who traveled: No Recent Hopitalizations: Yes (dc'd o.p. [facility] 10/07/20) Immunizations Up To Date Tetanus Booster (TDap): Less than 5yrs Pediatric: Yes Date of Pneumonia Vaccine: Oct 20, 2009 Date of Influenza Vaccine: Sep 19, 2021 Seasonal Allergies Seasonal Allergies: No Past Medical History Surgeries: Abdominal, Gallbladder, Thyroidectomy Cardiac: High Cholesterol, Hypertension Neurological: Neuropathy Reproductive: No HIV/AIDS: No Female Reproductive Disorders: Denies Menopausal Genitourinary: Renal Failure Musculoskeletal: Arthritis, Chronic Back Pain Endocrine: Hypothyroidsim, Diabetes, Non-Insulin dep Hearing Impairment: Denies Cancer: Thyroid Did You Recieve Any Treatments: Yes What Type of Treatment Did You: Surgical Intervention Psychosocial: Anxiety, Depression History of Blood Disorders: No Family History PAST SURGICAL /PROCEDURAL HISTORY: -FLEXIBLE SIGMOIDOSCOPY 10/2013 -GASTRIC BYPASS -THYROIDECTOMY 2009 -CHOLECYSTECTOMY Review of Systems Constitutional: weakness EENTM: No see HPI, No no symptoms reported, No ear discharge, No hearing loss, No ear pain, No blurred vision, No double vision, No eye pain, No tearing, No vision loss, No dental problems, No hoarseness, No mouth pain, No mouth swelling, No epistaxis, No nose congestion, No nose pain, No throat pain, No throat swelling, No other Respiratory: No no symptoms reported, No see HPI, No cough, No dyspnea on exertion, No hemoptysis, No orthopnea, No phlegm, No short of breath, No stridor, No wheezing, No other Cardiovascular: No no symptoms reported, No see HPI, No chest pain, No edema, No Hx of Intervention, No palpitations, No syncope, No vascular heart diseas, No other Gastrointestinal: No RUQ, No LUQ, No RLQ, No LLQ, No no symptoms reported, No see HPI, No abdominal pain, No constipation, No diarrhea, No dysphagia, No hematemesis, No heartburn, No jaundice, No loss of appetite, No melena, No nausea, No vomiting, No other Genitourinary: No no symptoms reported, No see HPI, No decreased output, No discharge, No dysuria, No frequency, No hematuria, No hesitancy, No incontinence, No nocturia, No pain, No other Musculoskeletal: back pain, muscle weakness Skin: other (right labial abscess--draining) Psychiatric/Neurological: Weakness Physical Exam Vital Signs Vital Signs - First Documented 03/06/21 15:20 Temp 36.4 Pulse 95 Resp 14 B/P (MAP) 147/64 Pulse Ox 99 O2 Delivery Room Air Capillary Refill : Height, Weight, BMI Height: 5'1.00" Weight: 298lbs. 2.0oz. 135.905420rq; 47.09 BMI Method:Stated General Appearance: Mild Distress HEENT: Pharynx Normal Neck: Supple Respiratory: Lungs Clear Cardiovascular: Regular Rate, Rhythm Gastrointestinal: Normal Bowel Sounds, Non Tender, Soft Rectal: Deferred Genital/Rectal: Other (right labia majora with erythema and abscess and drainage) Back: No CVA Tenderness Extremity: Non Tender, No Calf Tenderness, No Pedal Edema Neurologic/Psychiatric: Alert, Oriented x3 Skin: Erythema (as above to right labia majora) Comments Laboratory Tests 03/06/21 10:53: Glucometer 226H 03/06/21 12:46: White Blood Count 10.3, Red Blood Count 2.11L, Hemoglobin 6.8*L, Hematocrit 23L, Mean Corpuscular Volume 107H, Mean Corpuscular Hemoglobin 32, Mean Corpuscular Hemoglobin Concent 30L, Red Cell Distribution Width 14.6H, Platelet Count 164, Mean Platelet Volume 12.0, Immature Granulocyte % (Auto) 0, Neutrophils (%) (Auto) 83H, Lymphocytes (%) (Auto) 10L, Monocytes (%) (Auto) 5, Eosinophils (%) (Auto) 1, Basophils (%) (Auto) 0, Neutrophils # (Auto) 8.5H, Lymphocytes # (Auto) 1.1, Monocytes # (Auto) 0.5, Eosinophils # (Auto) 0.1, Basophils # (Auto) 0.0, Immature Granulocyte # (Auto) 0.0, Sodium Level 135, Potassium Level 3.8, Chloride Level 110H, Carbon Dioxide Level 16L, Anion Gap 9, Blood Urea Nitrogen 33H, Creatinine 2.48H, Estimat Glomerular Filtration Rate 20, BUN/Creatinine Ratio 13, Glucose Level 235H, Calcium Level 6.4L, Corrected Calcium 7.4L, Total Bilirubin 0.5, Aspartate Amino Transf (AST/SGOT) 13, Alanine Aminotransferase (ALT/SGPT) 14, Alkaline Phosphatase 144H, C-Reactive Protein High Sensitivity 3.95H, Total Protein 6.0L, Albumin 2.8L 03/06/21 15:35: Glucometer 187H Assessment/Plan Assessment and Plan 1. Right Labial Abscess--admit for IV abx and surgical evaluation, will have STRUCTURAL MANAGER see to assess for Bartholin's gland abscess, lovenox for DVT prophylaxis, pain control 2. Diabetes mellitus II--diet controlled, will start accuchecks with SSI 3. Chronic Kidney Disease Stage IV--patient states that code enforcement officer has discussed dialysis and renal transplant but Cr at 2.48 on admit 4. Hypertension--restart amlodopine if needed Admission Diagnosis Admission Status: Inpatient Order (span 2 midnights) Reason for Inpatient Admission: Will need at least 48hrs of IV abx ARIANNA RAMOS DO March 06, 2021 17:09
[2021-03-06] MEDS: ENOXAPARIN 30 MG/0.3 ML (LOVENOX) SYR SC SCH (18:08)
[2021-03-06] MEDS: ACETAMINOPHEN 325 MG TABLET PO PRN ×2 (18:45→23:04)
[2021-03-06] MEDS ORDERED: FAMOTIDINE 20 MG (PEPCID) TABLET PO SCH (21:00)
[2021-03-06] MEDS: PIPERACILLIN/TAZOBACTAM (BULK) 4.5 GM in NS (IVPB) 100 ML IV SCH (21:24)
[2021-03-07] VITALS (7 sets, daily range): BP systolic 101–135; BP diastolic 54–69
[2021-03-07] MEDS: NS IV 1000 ML 1,000 ML IV SCH ×3 (01:32→18:19)
[2021-03-07 05:04] LABS: HEMATOCRIT 30 % (35-52); HEMOGLOBIN 9.3 g/dL (11.5-16.0); MEAN CORPUSCULAR HEMOGLOBIN 31 pg (25-34); MEAN CORPUSCULAR HGB CONC 32 g/dL (32-36); MEAN CORPUSCULAR VOLUME 99 fL (80-99); MEAN PLATELET VOLUME 11.9 fL (9.0-12.2); PLATELET COUNT 165 10^3/uL (130-400); WHITE BLOOD COUNT 13.7 10^3/uL (4.3-11.0)
[2021-03-07 05:14] LABS: POTASSIUM 3.9 MMOL/L (3.6-5.0)
[2021-03-07 05:15] LABS: CALCIUM 6.5 MG/DL (8.5-10.1)
[2021-03-07 05:20] LABS: CREATININE SERUM 2.39 MG/DL (0.60-1.30)
[2021-03-07] MEDS: PIPERACILLIN/TAZOBACTAM (BULK) 4.5 GM in NS (IVPB) 100 ML IV SCH ×3 (05:20→21:16)
[2021-03-07] MEDS: inSUlin ASPART (NovoLOG) 1 UNIT/0.01 ML (CHARGE PER UNIT) SC SCH ×4 (05:21→21:11)
[2021-03-07] MEDS: ENOXAPARIN 30 MG/0.3 ML (LOVENOX) SYR SC SCH (09:09)
[2021-03-07] MEDS: FAMOTIDINE 20 MG (PEPCID) TABLET PO SCH (09:09)
--- NOTE | 2021-03-07 12:57 | Progress Note ---
Subjective Date Seen by a Provider: March 07, 2021 Time Seen by a Provider: 12:53 Subjective/Events-last exam Fwup left labial abscess, DMII, HTN, Chronic Kidney Disease, acute on chronic anemia. Passed large clot from open wound area last night and pain is much improved. Objective Exam Vital Signs Date Time Temp Pulse Resp B/P (MAP) Pulse Ox O2 Delivery O2 Flow Rate FiO2 03/07/21 11:23 36.2 87 18 101/66 (78) 98 Room Air 03/07/21 08:00 36.2 87 17 135/69 (91) 99 Room Air 03/07/21 08:00 Room Air 03/07/21 04:44 36.6 93 16 119/67 (84) 96 Room Air 03/07/21 01:18 36.3 03/07/21 01:15 36.3 86 20 102/54 96 Room Air 03/06/21 23:07 37.1 94 20 110/50 (70) 100 Room Air 03/06/21 23:06 37.1 94 20 110/50 100 Room Air 03/06/21 23:04 37.6 03/06/21 22:43 37.6 94 20 124/58 98 Room Air 03/06/21 20:20 38.2 98 20 115/57 (76) 99 Room Air 03/06/21 20:18 37.6 03/06/21 20:00 100 Room Air 03/06/21 18:45 37.3 03/06/21 17:59 37.3 83 16 121/58 99 Room Air 03/06/21 16:48 36.8 86 16 119/56 98 Room Air 03/06/21 15:43 36.6 82 16 120/58 99 Room Air 03/06/21 15:32 36.6 95 16 147/64 (91) 99 Room Air 03/06/21 15:20 36.4 95 14 147/64 99 Room Air I & O 03/07/21 06:59 Intake Total 3317.5 ml Output Total 1875 ml Balance 1442.5 ml Capillary Refill : General Appearance: No Apparent Distress Respiratory: Lungs Clear Cardiovascular: Regular Rate, Rhythm Gastrointestinal: normal bowel sounds, non tender, soft Neurologic/Psychiatric: Alert, Oriented x3 Skin: Other (left labial abscess area with less erythema and still with open area but no drainage except serous on pad) Results Lab Laboratory Tests 03/06/21 15:35: Glucometer 187H 03/06/21 21:16: Glucometer 286H 03/07/21 04:55: White Blood Count 13.7H, Red Blood Count 2.97L, Hemoglobin 9.3#L, Hematocrit 30L , Mean Corpuscular Volume 99, Mean Corpuscular Hemoglobin 31, Mean Corpuscular Hemoglobin Concent 32, Red Cell Distribution Width 16.3H, Platelet Count 165, Mean Platelet Volume 11.9, Sodium Level 136, Potassium Level 3.9, Chloride Level 112H, Carbon Dioxide Level 13L, Anion Gap 11, Blood Urea Nitrogen 29H, Creatinine 2.39H, Estimat Glomerular Filtration Rate 20, BUN/Creatinine Ratio 12, Glucose Level 185H, Calcium Level 6.5L 03/07/21 10:41: Glucometer 177H Assessment/Plan Assessment/Plan Assess & Plan/Chief Complaint 1. Left Labial Abscess--continue abx and check CT scan of pelvis 2. HTN--stable back on low dose amlodopine 3. DMII--on SSI 4. Chronic Kidney Disease--BUN/Cr stable 5. Acute on Chronic Anemia--S/P transfusion, H/H improved Clinical Quality Measures Admission Status Admission Dx 1. Right Labial Abscess--admit for IV abx and surgical evaluation, will have AIRBRUSH ARTIST see to assess for Bartholin's gland abscess, lovenox for DVT prophylaxis, pain control 2. Diabetes mellitus II--diet controlled, will start accuchecks with SSI 3. Chronic Kidney Disease Stage IV--patient states that medical csr has discussed dialysis and renal transplant but Cr at 2.48 on admit 4. Hypertension--restart amlodopine if needed ROBINSON KIM DO March 07, 2021 12:56
--- NOTE | 2021-03-07 16:46 | Diagnostic Imaging Report ---
EXAMINATION: CT pelvis without intravenous contrast. TECHNIQUE: Multiple contiguous axial images were obtained through the pelvis without the administration of intravenous contrast. All CT scans use one or more of the following dose optimizing techniques: automated exposure control, MA and/or KvP adjustment based on patient size and exam type or iterative reconstruction. HISTORY: Necrotizing fasciitis. COMPARISON: None available. FINDINGS: There is no bowel obstruction. The uterus is surgically absent. The urinary bladder is decompressed with a Hillman catheter. Surgical changes of the bowel. Surgical changes of the anterior abdominal wall. No suspicious osseous lesion or acute fracture. There is significant inflammatory stranding within the left perineum. Images do not entirely visualize the affected area but there is no obvious loculated fluid collection. IMPRESSION: 1. Significant skin thickening and inflammation of the left perineal soft tissues which are not entirely visualized on this CT. No obvious loculated fluid collection. Dictated by: Dictated on workstation # [id number]
[2021-03-07] MEDS: VANCOMYCIN 1 GM/NS 250 ML IVPB IV SCH ×2 (17:21)
[2021-03-08 03:27] VITALS: BP 127/60
[2021-03-08 04:57] LABS: HEMATOCRIT 31 % (35-52); HEMOGLOBIN 9.4 g/dL (11.5-16.0); MEAN CORPUSCULAR HEMOGLOBIN 31 pg (25-34); MEAN CORPUSCULAR HGB CONC 30 g/dL (32-36); MEAN CORPUSCULAR VOLUME 102 fL (80-99); MEAN PLATELET VOLUME 11.3 fL (9.0-12.2); PLATELET COUNT 171 10^3/uL (130-400)
[2021-03-08 05:12] LABS: POTASSIUM 4.1 MMOL/L (3.6-5.0)
[2021-03-08 05:13] LABS: CALCIUM 7.4 MG/DL (8.5-10.1)
[2021-03-08] MEDS: inSUlin ASPART (NovoLOG) 1 UNIT/0.01 ML (CHARGE PER UNIT) SC SCH ×4 (05:15→20:15)
[2021-03-08 05:17] LABS: CREATININE SERUM 2.56 MG/DL (0.60-1.30)
[2021-03-08] MEDS: PIPERACILLIN/TAZOBACTAM (BULK) 4.5 GM in NS (IVPB) 100 ML IV SCH ×3 (05:38→22:00)
[2021-03-08 08:19] VITALS: BP 133/85
[2021-03-08] MEDS: FAMOTIDINE 20 MG (PEPCID) TABLET PO SCH (08:55)
[2021-03-08] MEDS: NS IV 1000 ML 1,000 ML IV SCH (09:02)
[2021-03-08] MEDS: ENOXAPARIN 30 MG/0.3 ML (LOVENOX) SYR SC SCH (11:40)
[2021-03-08 11:43] VITALS: BP 114/65
--- NOTE | 2021-03-08 12:57 | Progress Note ---
Subjective Date Seen by a Provider: March 08, 2021 Time Seen by a Provider: 12:55 Subjective/Events-last exam Fwup left labial abscess, DMII, HTN, Chronic Kidney Disease, acute on chronic anemia. Minimal drainage and pain much less. Objective Exam Vital Signs Date Time Temp Pulse Resp B/P (MAP) Pulse Ox O2 Delivery O2 Flow Rate FiO2 03/08/21 11:43 35.7 86 18 114/65 (81) 97 Room Air 03/08/21 08:19 36.2 81 18 133/85 (101) 98 Room Air 03/08/21 08:00 Room Air 03/08/21 03:27 36.6 80 18 127/60 (82) 97 Room Air 03/07/21 23:17 36.3 78 18 120/58 (78) 96 Room Air 03/07/21 20:20 100 Room Air 03/07/21 19:48 36.1 82 18 120/59 (79) 100 Room Air 03/07/21 16:05 36.7 83 16 117/69 (85) 97 Room Air I & O 03/08/21 06:59 Intake Total 1090 ml Output Total 1875 ml Balance -785 ml Capillary Refill : General Appearance: No Apparent Distress Respiratory: Lungs Clear Cardiovascular: Regular Rate, Rhythm Gastrointestinal: normal bowel sounds, non tender, soft Extremity: Non Tender, No Calf Tenderness, No Pedal Edema Neurologic/Psychiatric: Alert, Oriented x3 Results Lab Laboratory Tests 03/07/21 13:11: Lab Scanned Report Transfusion Reaction Form 03/07/21 15:31: Glucometer 178H 03/07/21 20:42: Glucometer 120H 03/08/21 04:44: White Blood Count 9.0, Red Blood Count 3.05L, Hemoglobin 9.4L, Hematocrit 31L, Mean Corpuscular Volume 102H, Mean Corpuscular Hemoglobin 31, Mean Corpuscular Hemoglobin Concent 30L, Red Cell Distribution Width 16.2H, Platelet Count 171, Mean Platelet Volume 11.3, Sodium Level 139, Potassium Level 4.1, Chloride Level 115H, Carbon Dioxide Level 15L, Anion Gap 9, Blood Urea Nitrogen 24H, Creatinine 2.56H, Estimat Glomerular Filtration Rate 19, BUN/Creatinine Ratio 9, Glucose Level 141H, Calcium Level 7.4L 5/20/21 11:35: Glucometer 129H Assessment/Plan Assessment/Plan Assess & Plan/Chief Complaint 1. Left Labial Abscess--continue abx, DC montague catheter, home tomorrow 2. HTN--stable back on low dose amlodopine 3. DMII--on SSI 4. Chronic Kidney Disease--BUN/Cr stable 5. Acute on Chronic Anemia--S/P transfusion, H/H stable Clinical Quality Measures Admission Status Admission Dx 1. Right Labial Abscess--admit for IV abx and surgical evaluation, will have DEMOGRAPHIC ANALYST see to assess for Bartholin's gland abscess, lovenox for DVT prophylaxis, pain control 2. Diabetes mellitus II--diet controlled, will start accuchecks with SSI 3. Chronic Kidney Disease Stage IV--patient states that valve technician has discussed dialysis and renal transplant but Cr at 2.48 on admit 4. Hypertension--restart amlodopine if needed ROBNISON KIM DO March 08, 2021 12:57
[2021-03-08] MEDS ORDERED: TROUGH ORDER-PHARMACY XX NR (15:00)
[2021-03-08 15:55] VITALS: BP 126/58
[2021-03-08] MEDS: VANCOMYCIN 1 GM/NS 250 ML IVPB IV SCH ×2 (16:13)
[2021-03-08 19:27] VITALS: BP 119/56
[2021-03-09 00:20] VITALS: BP 107/66
[2021-03-09] MEDS: NS IV 1000 ML 1,000 ML IV SCH (03:02)
[2021-03-09 04:48] LABS: HEMATOCRIT 31 % (35-52); HEMOGLOBIN 9.4 g/dL (11.5-16.0); MEAN CORPUSCULAR HEMOGLOBIN 31 pg (25-34); MEAN CORPUSCULAR HGB CONC 30 g/dL (32-36); MEAN CORPUSCULAR VOLUME 102 fL (80-99); MEAN PLATELET VOLUME 11.6 fL (9.0-12.2); PLATELET COUNT 190 10^3/uL (130-400)
[2021-03-09 04:55] LABS: POTASSIUM 4.3 MMOL/L (3.6-5.0)
[2021-03-09 04:56] LABS: CALCIUM 7.3 MG/DL (8.5-10.1)
[2021-03-09 05:01] LABS: CREATININE SERUM 2.46 MG/DL (0.60-1.30)
[2021-03-09] MEDS: PIPERACILLIN/TAZOBACTAM (BULK) 4.5 GM in NS (IVPB) 100 ML IV SCH (05:03)
[2021-03-09] MEDS: inSUlin ASPART (NovoLOG) 1 UNIT/0.01 ML (CHARGE PER UNIT) SC SCH ×2 (05:04→11:13)
[2021-03-09 07:30] VITALS: BP 121/85
--- NOTE | 2021-03-09 08:23 | Progress Note ---
Standard Progress Note Progress Notes/Assess & Plan Date Seen by a Provider: March 07, 2021 Time Seen by a Provider: 07:45 JOSE RENDON DO March 09, 2021 08:23
--- NOTE | 2021-03-09 08:24 | Progress Note ---
Standard Progress Note Progress Notes/Assess & Plan Date Seen by a Provider: March 08, 2021 Time Seen by a Provider: 08:15 JOSE RENDON DO March 09, 2021 08:24
--- NOTE | 2021-03-09 08:29 | Progress Note ---
Standard Progress Note Progress Notes/Assess & Plan Date Seen by a Provider: March 09, 2021 Time Seen by a Provider: 08:24 Progress/Assessment & Plan Patient states she is doing well. Has voided after chather removed Passing gas, no stool Ambulating no bleeding 03/09/21 00:20 Temp 35.8 Pulse 80 Resp 18 B/P (MAP) 107/66 (80) Pulse Ox 96 O2 Delivery Room Air 03/09/21 00:00 Intake Total 1950 ml Output Total 1825 ml Balance 125 ml JOSE RENDON DO March 09, 2021 08:29
[2021-03-09] MEDS ORDERED: BENZ78AE5 TP (08:37)
--- NOTE | 2021-03-09 08:39 | Discharge Inst-Women's Service ---
Discharge Inst-Women's Serv Depart Medication/Instructions New, Converted or Re-Newed RX: RX on Chart Instructions Keep clean and dry Use co founder and chairman on low setting if needed Use pericare to clean and then pat dry Dermoplast spray as needed for pain, irritation If signs or symptoms of yeast infection, please call Dr. Rendon's office at [phone] Final Diagnosis vulvar abscess Consults/Follow Up Additional Follow Up: Yes (2-[address] Rendon for post hospital followup) Activity Activity: Activity as Tolerated JOSE RENDON DO March 09, 2021 08:39
[2021-03-09] MEDS ORDERED: BENZOCAINE/MENTHOL (DERMOPLAST) 56 ML CAN TP PRN (08:45)
[2021-03-09] MEDS: FAMOTIDINE 20 MG (PEPCID) TABLET PO SCH (08:51)
[2021-03-09] MEDS: ENOXAPARIN 30 MG/0.3 ML (LOVENOX) SYR SC SCH (10:30)
[2021-03-09] MEDS ORDERED: DOXY100C2 PO (11:06)
--- NOTE | 2021-03-09 11:23 | Discharge Summary ---
Diagnosis/Chief Complaint Date of Admission March 06, 2021 at 10:30 Date of Discharge Discharge Date: March 09, 2021 Discharge Diagnosis 1. Left Labial Abscess--improved 2. Acute on Chronic Anemia--S/P transfusion 3. Chronic Kidney Disease Stage 4--stable 4. Hypertension--stable 5. Diabetes mellitus II--stable 6. Stage 3 Obesity Reason Hospital Visit This is a 65 year old female with a history of a draining right labial abscess who was seen in my office yesterday. She was having worsening pain and swelling today so it was decided to admit her for IV antibiotics and surgical consult. Discharge Summary Hospital Course Was the Problem List Reviewed?: Yes Hospital Course This is a 65 year old female with a history of a draining right labial abscess who was seen in my office yesterday. She was having worsening pain and swelling today so it was decided to admit her for IV antibiotics and surgical consult. Initially there was concern for a possible bartholin gland abscess and possibly having to go to surgery. She was started on IV zosyn. Gynecology was consulted and felt like this was a labial abscess and since it was open and draining that we could treat with IV antibiotics and monitor her response. IV vancomycin was added to cover for MRSA etiology. The patient was anemic on admit with a hemoglobin of 6.8. She was given 2 units of pRBCs in anticipation of surgery and her hemoglobin has been stable at 9.4 since then. She did stand of to go to the bathroom on the first night of admit and her left sided wound opened even more and she passed a very large clot from the wound and lots of bloody drainage. Following this, her pain was much improved. She was continued on IV antibiotics and by the day of discharge, she is having minimal pain in her left labial area, there has been minimal drainage, she is afebrile, her WBC count is normal and she can be switched to oral antibiotics. She will be sent home on oral doxycycline and follow up with me in my office in [address] Smiley in 2 weeks. She is also given dermoplasty spray to use prn. Labs Laboratory Tests 03/06/21 12:46: Red Blood Count 2.11L, Hemoglobin 6.8*L, Hematocrit 23L, Mean Corpuscular Volume 107H, Mean Corpuscular Hemoglobin Concent 30L, Red Cell Distribution Width 14.6H , Neutrophils (%) (Auto) 83H, Lymphocytes (%) (Auto) 10L, Neutrophils # (Auto) 8.5H, Chloride Level 110H, Carbon Dioxide Level 16L, Blood Urea Nitrogen 33H, Creatinine 2.48H, Glucose Level 235H, Calcium Level 6.4L, Corrected Calcium 7.4L , Alkaline Phosphatase 144H, C-Reactive Protein High Sensitivity 3.95H, Total Protein 6.0L, Albumin 2.8L 03/06/21 15:35: Glucometer 187H 03/06/21 21:16: Glucometer 286H 03/07/21 04:55: Red Blood Count 2.97L, Hemoglobin 9.3#L, Hematocrit 30L, Red Cell Distribution Width 16.3H, Chloride Level 112H, Carbon Dioxide Level 13L, Blood Urea Nitrogen 29H, Creatinine 2.39H, Glucose Level 185H, Calcium Level 6.5L, White Blood Count 13.7H 03/07/21 10:41: Glucometer 177H 03/07/21 13:11: 03/07/21 15:31: Glucometer 178H 03/07/21 20:42: Glucometer 120H 03/08/21 04:44: Red Blood Count 3.05L, Hemoglobin 9.4L, Hematocrit 31L, Mean Corpuscular Volume 102H, Mean Corpuscular Hemoglobin Concent 30L, Red Cell Distribution Width 16.2H , Chloride Level 115H, Carbon Dioxide Level 15L, Blood Urea Nitrogen 24H, Creatinine 2.56H, Glucose Level 141H, Calcium Level 7.4L 03/08/21 11:35: Glucometer 129H 03/08/21 14:55: 03/08/21 15:24: Glucometer 153H 03/08/21 20:07: Glucometer 149H 03/09/21 04:38: Red Blood Count 3.05L, Hemoglobin 9.4L, Hematocrit 31L, Mean Corpuscular Volume 102H, Mean Corpuscular Hemoglobin Concent 30L, Red Cell Distribution Width 15.9H , Chloride Level 116H, Carbon Dioxide Level 13L, Blood Urea Nitrogen 21H, Creatinine 2.46H, Glucose Level 190H, Calcium Level 7.3L Procedures None. Discharge Physical Examination Allergies: Coded Allergies: No Known Allergies (Verified Allergy, Unknown, 03/06/21) adhesive tape (Unverified Adverse Reaction, Unknown, 11/19/17) Vitals & I&Os Vital Signs Date Time Temp Pulse Resp B/P (MAP) Pulse Ox O2 Delivery O2 Flow Rate FiO2 03/09/21 09:00 Room Air 03/09/21 07:30 36.0 80 18 121/85 (97) 98 General Appearance: Alert, Oriented X3, Cooperative, No Acute Distress Cardiovascular: Regular Rate Abdominal: Normal Bowel Sounds Extremities: No Clubbing, No Cyanosis, No Edema Psych/Mental Status: Mental Status NL, Mood NL Discharge Home Medications Reviewed and agree with Discharge Medication list on patient's Discharge Instruction sheet Instructions to Patient/Family Please see electronic discharge instructions given to patient. ROBINSON KIM DO March 09, 2021 11:23
[2021-03-09 16:11] VITALS: BP 121/85
== END 2021-03-09 16:11 | disposition home or self-care (01) ==
LOC: INTOOBSV 10:30 → 4TH 10:30 → UNDOADMOB 10:30 → 4TH 11:30 → UNDODISOB 03-09 16:11
PROVIDERS: ADMIT Family Medicine; ATTEND Family Medicine
DX: N76.4 Abscess of vulva (principal); E11.9 Type 2 diabetes mellitus without complications; E11.22 Type 2 diabetes mellitus with diabetic chronic kidney disease; N18.4 Chronic kidney disease, stage 4 (severe); E78.00 Pure hypercholesterolemia, unspecified; I12.9 Hypertensive chronic kidney disease with stage 1 through stage 4 chronic kidney disease, or unspecified chronic kidney disease; M19.90 Unspecified osteoarthritis, unspecified site; E03.9 Hypothyroidism, unspecified; G89.29 Other chronic pain; M54.9 Dorsalgia, unspecified; D64.89 Other specified anemias; E66.9 Obesity, unspecified; F41.9 Anxiety disorder, unspecified; F32.9 Major depressive disorder, single episode, unspecified; Z90.49 Acquired absence of other specified parts of digestive tract; Z90.09 Acquired absence of other part of head and neck; Z79.899 Other long term (current) drug therapy; Z79.890 Hormone replacement therapy
CPT/HCPCS: 72192; 80048 ×3; 80053; 80202; 82947 ×4; 85025; 85027 ×3; 86141; 86850; 86900; 86901; 86920; P9016; 36415; 36430; 99211; G0378

== ENCOUNTER 2021-05-26 01:23 | Inpatient (IN) | payer MEDICARE ==
[2021-05-26] VITALS (19 sets, daily range): BP systolic 85–130; BP diastolic 49–85
[~2021-05-26] VITALS: Ht 155 cm; Wt 103.9 kg
[~2021-05-26 01:23] MED LIST changes: +AMLO2.5T4 PO; +BENZ78AE5 TP; +CEPH500C PO; +CYCL1DRO OU; +DOXY-311 PO; +DOXY100C2 PO; -DOXY100C42 PO; +ERGO1250 PO; +GABA-486 PO; +LATA2.5D19 OU; +LEVO175T5 PO; +MIRT-68 PO; +TIZA4TAB4 PO
[2021-05-26] MEDS ORDERED: IBUPROFEN 800 MG (MOTRIN) TAB PO ONE (01:30)
[2021-05-26] MEDS ORDERED: NS IV 1000 ML 1,000 ML IV SCH ×3 (01:30→08:00)
[2021-05-26] MEDS: ACETAMINOPHEN 500 MG TAB (TYLENOL) PO PRN ×2 (01:52→03:41)
[2021-05-26 01:58] LABS: BILIRUBIN,URINE NEGATIVE (NEGATIVE); CLARITY,URINE CLEAR; COLOR,URINE YELLOW; GLUCOSE, URINE (UA) NEGATIVE (NEGATIVE); KETONES,URINE NEGATIVE (NEGATIVE); LEUKOCYTE ESTERASE ,URINE NEGATIVE (NEGATIVE); NITRITE,URINE NEGATIVE (NEGATIVE); PROTEIN,URINE NEGATIVE (NEGATIVE)
[2021-05-26 01:59] LABS: BASOPHILS % (AUTO) 0 % (0-10); EOSINOPHILS # (AUTO) 0.1 10^3/uL (0.0-0.3); EOSINOPHILS % (AUTO) 0 % (0-10); HEMATOCRIT 29 % (35-52); HEMOGLOBIN 8.7 g/dL (11.5-16.0); LYMPHOCYTES # (AUTO) 1.4 10^3/uL (1.0-4.0); LYMPHOCYTES % (AUTO) 10 % (12-44); MEAN CORPUSCULAR HEMOGLOBIN 32 pg (25-34); MEAN CORPUSCULAR HGB CONC 30 g/dL (32-36); MEAN CORPUSCULAR VOLUME 105 fL (80-99); MEAN PLATELET VOLUME 11.5 fL (9.0-12.2); MONOCYTES # (AUTO) 0.2 10^3/uL (0.0-1.0); MONOCYTES % (AUTO) 2 % (0-12); NEUTROPHILS # (AUTO) 11.8 10^3/uL (1.8-7.8); NEUTROPHILS % (AUTO) 87 % (42-75); PLATELET COUNT 235 10^3/uL (130-400); WHITE BLOOD COUNT 13.6 10^3/uL (4.3-11.0)
[2021-05-26 02:14] LABS: BACTERIA,URINE NEGATIVE /HPF; WBC,URINE 0-2 /HPF
[2021-05-26 02:19] LABS: FIBRIN DEGRADATION PRODUCTS 3.69 UG/ML (0.00-0.49); INR 1.3 (0.8-1.4); PROTHROMBIN TIME PATIENT 16.3 SEC (12.2-14.7)
[2021-05-26 02:20] LABS: CALCIUM 7.8 MG/DL (8.5-10.1)
[2021-05-26 02:21] LABS: TOTAL PROTEIN 7.2 GM/DL (6.4-8.2)
[2021-05-26 02:23] LABS: BILIRUBIN,TOTAL 0.5 MG/DL (0.1-1.0)
[2021-05-26 02:25] LABS: CREATININE SERUM 2.86 MG/DL (0.60-1.30)
[2021-05-26 02:27] LABS: EOSINOPHILS % (MANUAL) 1 %; LYMPHOCYTES % (MANUAL) 8 %; MONOCYTES % (MANUAL) 1 %; NEUTROPHILS % (MANUAL) 90 %; NUCLEATED RED BLOOD CELLS 1
[2021-05-26 02:28] LABS: POLYCHROMASIA SLIGHT
[2021-05-26 03:14] LABS: ERYTHROCYTE SEDIMENTATION RATE > 140 MM/HR (0-30)
[2021-05-26] MEDS ORDERED: AZITHROMYCIN INJECTION 500 MG in NS (IVPB) 250 ML IV ONE (03:30)
[2021-05-26] MEDS ORDERED: cefTRIAXone 1,000 MG in WATER (STERILE) FOR INJECTION 10 ML IV ONE (03:30)
[2021-05-26] MEDS ORDERED: ONDANSETRON 4 MG/2 ML (SDV) Z0FRAN IVP ONE (04:15)
--- NOTE | 2021-05-26 04:32 | ED General ---
General Chief Complaint: Fever-Adult/Adol Stated Complaint: SEPSIS;PNEUMONIA;CHRONIC RENAL FAILURE Nursing Triage Note: PT PRESENTS TO ROOM #9 VIA [facility] GURNEY FROM HOME W/CO FEVER, CHILLS, AND COUGH. PT REPORTS SHE BEGAN TO FEEL "SHAKY" ON THE EVENING OF 05/24/21 THAT WAS RELIEVED BY TYLENOL. 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 PT REPORTS PRIOR TO DISPATCHING EMS SHE TOOK 1000MG TYLENOL. PT REPORTS HX STAGE 4 RENAL FAILURE AND DIABETES. INITIAL PULSE RATE 133. PT NOTED TO BE PALE, WARM TO TOUCH, WITH TREMORS NOTED DURING TRIAGE. A&OX4. Source of Information: Patient History of Present Illness Date Seen by Provider: May 26, 2021 Time Seen by Provider: 01:25 Initial Comments PT ARRIVES VIA EMS FROM HOME PT STATES SHE HAD A ROUTINE EXAM WITH DR. KIM ON Friday05/22/21 WHEN SHE GOT HOME FROM THE APPOINTMENT, SHE BEGAN TO HAVE CHILLS, SO SHE TOOK A TYLENOL AND THEN SHE STARTED SWEATING PROFUSELY STATES SHE HAD THE SAME THING YESTERDAY, AND FELT "SHAKEY" AND TOOK ANOTHER TYLENOL, STARTED SWEATING AND THEN SHE WAS FINE PT STATES SHE DID THE SAME THING AGAIN TONIGHT CHECKED HER TEMP AND IT WAS 101--TOOK 1000 MG TYLENOL JUST PRIOR TO ARRIVAL PT STATES SHE HAS HAD A COUGH SINCE LAST SEPTEMBER AND IS NOT ANY WORSE THAN NORMAL NO SHORTNESS OF BREATH NO CHEST PAIN NO HEADACHE NO BODY ACHES NO SORE THROAT NO LOSS OF TASTE OR SMELL NO NAUSEA/VOMITING/DIARRHEA NO ABDOMINAL PAIN NO PROBLEMS URINATING AND VOIDING A NORMAL AMOUNT NO SYNCOPE PT HAS BEEN EATING AND DRINKING OK HAS HAD UTI'S IN THE PAST, BUT DENIES ANY RECENT PROBLEMS, AND DENIES ANY URINARY SYMPTOMS STATS SHE IS DIABETIC AND HAS STAGE 4 RENAL FAILURE STATES SHE HAS AN UPCOMING APPOINTMENT WITH A SURGEON TO HAVE AN AV FISTULA/DIALYSIS GRAFT PLACED, BUT PT HAS NEVER BEEN ON DIALYSIS, BUT WILL LIKELY NEED IT IN THE FUTURE. PT ADMITTED 03/06-03/09/21 FOR BARTHOLIN'S ABSCESS PT HAS HAD COVID-19 VACCINES X 2 PCP: DR. KIM Allergies and Home Medications Allergies Coded Allergies: No Known Allergies (Verified Allergy, Unknown, 03/06/21) adhesive tape (Unverified Adverse Reaction, Unknown, 11/19/17) Home Medications Amlodipine Besylate 2.5 Mg Tablet, 2.5 MG PO DAILY, (Reported) Atorvastatin Calcium 20 Mg Tablet, 20 MG PO DAILY, (Reported) Benzocaine/Menthol 78 Gm Aerosol, 1 EA TP TID PRN for pain Prescribed by: JOSE RENDON on 03/09/21 0837 Cyclosporine 1 Each Droperette, 1 DROP OU DAILY, (Reported) Doxycycline Hyclate 100 Mg Capsule, 100 MG PO BID Prescribed by: ROBINSON KIM on 03/09/21 1106 Ergocalciferol (Vitamin D2) 1,250 Mcg Capsule, 1,250 MCG PO SUN, (Reported) Gabapentin 100 Mg Capsule, 200 MG PO HS, (Reported) TAKES 2 (100MG) CAPS Latanoprost 2.5 Ml Drops, 1 DROP OU HS, (Reported) Levothyroxine Sodium 175 Mcg Tablet, 175 MCG PO DAILY, (Reported) Mirtazapine 15 Mg Tablet, 15 MG PO HS, (Reported) Tizanidine HCl 4 Mg Tablet, 4 MG PO BID PRN for MUSCLE SPASMS, (Reported) Patient Home Medication List Home Medication List Reviewed: Yes Review of Systems Review of Systems Constitutional: see HPI, chills, diaphoresis, fever EENTM: no symptoms reported Respiratory: see HPI, cough Cardiovascular: no symptoms reported Gastrointestinal: no symptoms reported Genitourinary: no symptoms reported Musculoskeletal: no symptoms reported Skin: no symptoms reported Psychiatric/Neurological: No Symptoms Reported Hematologic/Lymphatic: No Symptoms Reported Immunological/Allergic: no symptoms reported Past Pnstnig-Gzrcbk-Lfcehq Hx Patient Social History Tobacco Use?: No Smoking Status: Never a Smoker Substance use?: No Alcohol Use?: No Pt feels they are or have been: No Immunizations Up To Date Tetanus Booster (TDap): Less than 5yrs PED Vaccines UTD: Yes First/Initial COVID19 Vaccinat: 2020 Second COVID19 Vaccination Portillo: 2020 COVID19 Vaccine Microsoft Architect: MODERNA X2 DOSES Seasonal Allergies Seasonal Allergies: No Past Medical History Surgery/Hospitalization HX: THYROIDECTOMY 2009 FLEXIBLE SIGMOIDOSCOPY 10/2013 GASTRIC BYPASS CHOLECYSTECTOMY MULTIPLE I&D'S OF ABSCESSES, INCLUDING PILONIDAL CYST/ABSCESS MULTIPLE DEBRIDEMENTS OF NECROTIZING FASCITIS Surgeries: Yes (PILONIDAL CYST/ABSCESS;MULTIPLE DEBRIDEMENTS FOR NECROTIZING FASCITIS; ) Abdominal, Gallbladder, Thyroidectomy Respiratory: No Cardiac: Yes High Cholesterol, Hypertension Neurological: Yes Neuropathy Reproductive Disorders: No Female Reproductive Disorders: Denies 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 DOES NOT SEE AN ONCOLOGIST OR TILLER WORKER Psychosocial: Yes Anxiety, Depression Integumentary: Yes (HX- NECROTIZING FASCITIS IN 1989;PILONIDAL CYST/ABSCESS;BARTHOLIN'S ABSCESS) Blood Disorders: No Family Medical History PAST SURGICAL /PROCEDURAL HISTORY: -FLEXIBLE SIGMOIDOSCOPY 10/2013 -GASTRIC BYPASS -THYROIDECTOMY 2009 -CHOLECYSTECTOMY Physical Exam Vital Signs Vital Signs - First Documented 05/26/21 01:23 Temp 38.2 Pulse 133 Resp 26 B/P (MAP) 103/69 (80) Pulse Ox 96 O2 Delivery Room Air Capillary Refill : Less Than 3 Seconds Height, Weight, BMI Height: 5'1.00" Weight: 298lbs. 2.0oz. 135.638866wz; 43.00 BMI Method:Stated General Appearance: No Apparent Distress, WD/WN, Obese (MORBIDLY OBESE), Other (HEAD IS COMPLETELY SHAVED, WITH FRONTAL BALDING PATTERN; PT IS SHIVERING; DOES NOT APPEAR DYSPNEIC OR TO BE IN ACUTE DISTRESS. PT IS VERY PLEASANT. 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 Norm as Tested Skin: Warm/Dry (VERY WARM), Pallor; No Rash Focused Exam Sepsis Stage: Sepsis Possible Source: Pulmonary Lactate Level 05/26/21 01:30: Lactic Acid Level 2.12*H Time of Focused Exam: 03:15 Respiratory: Normal Breath Sounds, No Accessory Muscle Use, No Respiratory Distress Cardiovascular: No Edema, No JVD, No Murmur, Normal Peripheral Pulses, Tachycardia Skin: warm/dry, pallor Lactic Acid Level Laboratory Tests Test 05/26/21 01:30 Lactic Acid Level 2.12 MMOL/L (0.50-2.00) *H Within 3hrs of presentation: Admin fluids, Admin ABX, Blood cultures prior to ABX's, Focus exam, Lactate level Progress/Results/Core Measures Suspected Sepsis SIRS Temperature: Pulse: 133 Respiratory Rate: 26 Laboratory Tests 05/26/21 01:30: White Blood Count 13.6H Blood Pressure 103 /69 Mean: 80 05/26/21 01:30: Lactic Acid Level 2.12*H Laboratory Tests 05/26/21 01:30: Creatinine 2.86H, INR Comment 1.3, Platelet Count 235, Total Bilirubin 0.5 Results/Orders Lab Results Laboratory Tests Test 05/26/21 01:30 05/26/21 01:47 Range/Units White Blood Count 13.6 H 4.3-11.0 10^3/uL Red Blood Count 2.74 L 3.80-5.11 10^6/uL Hemoglobin 8.7 L 11.5-16.0 g/dL Hematocrit 29 L 35-52 % Mean Corpuscular Volume 105 H 80-99 fL Mean Corpuscular Hemoglobin 32 25-34 pg Mean Corpuscular Hemoglobin Concent 30 L 32-36 g/dL Red Cell Distribution Width 14.3 10.0-14.5 % Platelet Count 235 130-400 10^3/uL Mean Platelet Volume 11.5 9.0-12.2 fL Immature Granulocyte % (Auto) 1 % Neutrophils (%) (Auto) 87 H 42-75 % Lymphocytes (%) (Auto) 10 L 12-44 % Monocytes (%) (Auto) 2 0-12 % Eosinophils (%) (Auto) 0 0-10 % Basophils (%) (Auto) 0 0-10 % Neutrophils # (Auto) 11.8 H 1.8-7.8 10^3/uL Lymphocytes # (Auto) 1.4 1.0-4.0 10^3/uL Monocytes # (Auto) 0.2 0.0-1.0 10^3/uL Eosinophils # (Auto) 0.1 0.0-0.3 10^3/uL Basophils # (Auto) 0.0 0.0-0.1 10^3/uL Immature Granulocyte # (Auto) 0.1 0.0-0.1 10^3/uL Neutrophils % (Manual) 90 % Lymphocytes % (Manual) 8 % Monocytes % (Manual) 1 % Eosinophils % (Manual) 1 % Nucleated Red Blood Cells 1 Polychromasia SLIGHT Erythrocyte Sedimentation Rate > 140 H 0-30 MM/HR Prothrombin Time 16.3 H 12.2-14.7 SEC INR Comment 1.3 0.8-1.4 Activated Partial Thromboplast Time 35 24-35 SEC D-Dimer 3.69 H 0.00-0.49 UG/ML Sodium Level 140 135-145 MMOL/L Potassium Level 5.0 3.6-5.0 MMOL/L Chloride Level 113 H 98-107 MMOL/L Carbon Dioxide Level 12 L 21-32 MMOL/L Anion Gap 15 H 5-14 MMOL/L Blood Urea Nitrogen 33 H 7-18 MG/DL Creatinine 2.86 H 0.60-1.30 MG/DL Estimat Glomerular Filtration Rate 17 BUN/Creatinine Ratio 12 Glucose Level 161 H 70-105 MG/DL Lactic Acid Level 2.12 *H 0.50-2.00 MMOL/L Calcium Level 7.8 L 8.5-10.1 MG/DL Corrected Calcium 8.6 8.5-10.1 MG/DL Total Bilirubin 0.5 0.1-1.0 MG/DL Aspartate Amino Transf (AST/SGOT) 21 5-34 U/L Alanine Aminotransferase (ALT/SGPT) 20 0-55 U/L Alkaline Phosphatase 162 H 40-136 U/L Lactate Dehydrogenase 209 125-220 U/L C-Reactive Protein High Sensitivity 3.55 H 0.00-0.50 MG/DL Total Protein 7.2 6.4-8.2 GM/DL Albumin 3.0 L 3.2-4.5 GM/DL Procalcitonin 0.53 H <0.10 NG/ML SARS-CoV-2 RNA (RT-PCR) Not Detected Not Detecte Urine Color YELLOW Urine Clarity CLEAR Urine pH 5.0 5-9 Urine Specific Wann 1.025 H 1.016-1.022 Urine Protein NEGATIVE NEGATIVE Urine Glucose (UA) NEGATIVE NEGATIVE Urine Ketones NEGATIVE NEGATIVE Urine Nitrite NEGATIVE NEGATIVE Urine Bilirubin NEGATIVE NEGATIVE Urine Urobilinogen 0.2 < = 1.0 MG/DL Urine Leukocyte Esterase NEGATIVE NEGATIVE Urine RBC (Auto) NEGATIVE NEGATIVE Urine RBC NONE /HPF Urine WBC 0-2 /HPF Urine Squamous Epithelial Cells 2-5 /HPF Urine Renal Epithelial Cells NONE /HPF Urine Crystals NONE /LPF Urine Bacteria NEGATIVE /HPF Urine Casts NONE /LPF Urine Mucus NEGATIVE /LPF Urine Culture Indicated CULTURE PENDING My Orders Orders - ELIZABETH WITT DO Ed Iv/Invasive Line Start (05/26/2125) Ekg Tracing (05/26/21) O2 (05/26/21) Monitor-Rhythm Ecg Trace Only (05/26/21) Cbc With Automated Diff (05/26/21) Comprehensive Metabolic Panel (05/26/21) Fibrin Degradation Products (05/26/21) Procalcitonin (Pct) (05/26/21) Hs C Reactive Protein (05/26/21) Erythrocyte Sedimentation Rate (05/26/21:) LDH (05/26/21:) Blood Culture (05/26/21) Covid 19 Inhouse Test (05/26/21) Sputum Culture (05/26/21:) Urinalysis (05/26/21:) Urine Culture (05/26/21) Protime With Inr (05/26/21) Partial Thromboplastin Time (05/26/21) Chest 1 View, Ap/Pa Only (05/26/2125) Acetaminophen Tablet (Tylenol Tablet) (05/26/21 01:30) Ed Iv/Invasive Line Start (05/26/2125) Ed Iv/Invasive Line Start (05/26/2125) Vital Signs Adult Sepsis Patie Q15M (05/26/21:25) O2 (05/26/21:25) Remove Rings In Anticipation O (05/26/21:25) Lactic Acid Analyzer (05/26/21:) Catheter(Urinary) Insert & Ass 03,15 (05/26/21 01:25) Ed Iv/Invasive Line Start (05/26/21 01:25) Ns Iv 1000 Ml (Sodium Chloride 0.9%) (05/26/21 01:30) Ibuprofen Tablet (Motrin Tablet) (05/26/21 01:30) Manual Differential (05/26/21 01:30) Medications Given in ED Current Medications Medications Dose Ordered Sig/Tiffany Route Start Time Stop Time Status Last Admin Dose Admin Acetaminophen 1,000 mg ONCE PRN PO 05/26/21 01:30 05/26/21 03:48 DC 05/26/21 03:41 1,000 MG Ibuprofen 800 mg ONCE ONCE PO 05/26/21 01:30 05/26/21 01:31 DC 05/26/21 01:38 800 MG Vital Signs/I&O 05/26/21 01:23 Temp 38.2 Pulse 133 Resp 26 B/P (MAP) 103/69 (80) Pulse Ox 96 O2 Delivery Room Air Capillary Refill : Less Than 3 Seconds Blood Pressure Mean: 80 Progress Note : Progress Note PLACED IN ISOLATION ROOM PPE WORN AT ALL TIMES COVID-19 TESTING PERFORMED AND WAS NEGATIVE GIVEN TYLENOL AND MOTRIN FOR FEVER GIVEN IV FLUIDS FOR FEVER AND HYPOTENSION--BP UP WITH FLUIDS TO > 100 SYSTOLIC AT TIME OF ADMIT. GIVEN ROCEPHIN AND ZITHROMAX DID COMPLAIN OF A LITTLE NAUSEA WITH ANTIBIOTICS--GIVEN ZOFRAN WITH RESOLUTION OF NAUSEA UNABLE TO OBTAIN CT CHEST ANGIOGRAM, DUE TO CHRONIC RENAL FAILURE WITH GFR OF 17 TODAY WILL TREAT EMPIRICALLY WITH HEPARIN, D-DIMER ELEVATED. BP UP, HR AND TEMP DOWN AT DISMISSAL PT WISHES TO BE A FULL CODE ECG Initial ECG Impression Date: May 26, 2021 Initial ECG Impression Time: 01:35 Initial ECG Rate: 130 Initial ECG Rhythm: S.Tach Diagnostic Imaging Comments CXR--LLL INFILTRATE, PENDING RADIOLOGIST REVIEW Reviewed: Reviewed by Me Departure Communication (Admissions) 1349--SPOKE WITH DR. 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 KIM. ACCEPTS PT FOR ADMIT Impression Primary Impression: Sepsis Additional Impressions: Pneumonia Chronic renal failure Chronic anemia Elevated d-dimer Non-insulin dependent diabetes mellitus Disposition: ADMITTED INPATIENT Condition: Stable Admissions Decision to Admit Reason: Admit from ER (General) Decision to Admit/Date: May 26, 2021 Time/Decision to Admit Time: 03:15 Departure-Patient Inst. Referrals: ROBINSON KIM DO (PCP/Family) Primary Care Physician ELIZABETH WITT DO May 26, 2021 04:32
[2021-05-26] MEDS ORDERED: NS IV 1000 ML 1,000 ML ONE (05:16)
[2021-05-26] MEDS ORDERED: RT-ALBUTEROL SULF 2.5 MG/3 ML PRE-MIX VIAL INH PRN (05:30)
[2021-05-26] MEDS ORDERED: ACETAMINOPHEN 500 MG TAB (TYLENOL) PO PRN (05:45)
[2021-05-26] MEDS ORDERED: ONDANSETRON 4 MG/2 ML (SDV) Z0FRAN IV PRN (05:45)
[2021-05-26] MEDS: NS IV 1000 ML 1,000 ML IV SCH ×3 (05:45→18:13)
[2021-05-26] MEDS ORDERED: IBUPROFEN 800 MG (MOTRIN) TAB PO PRN (05:45)
[2021-05-26 06:10] LABS: BASOPHILS % (AUTO) 0 % (0-10); EOSINOPHILS % (AUTO) 0 % (0-10); HEMATOCRIT 23 % (35-52); LYMPHOCYTES # (AUTO) 0.6 10^3/uL (1.0-4.0); LYMPHOCYTES % (AUTO) 4 % (12-44); MEAN CORPUSCULAR HEMOGLOBIN 32 pg (25-34); MEAN CORPUSCULAR HGB CONC 29 g/dL (32-36); MEAN CORPUSCULAR VOLUME 110 fL (80-99); MEAN PLATELET VOLUME 11.4 fL (9.0-12.2); MONOCYTES # (AUTO) 0.6 10^3/uL (0.0-1.0); MONOCYTES % (AUTO) 4 % (0-12); NEUTROPHILS # (AUTO) 14.3 10^3/uL (1.8-7.8); NEUTROPHILS % (AUTO) 92 % (42-75); PLATELET COUNT 192 10^3/uL (130-400); WHITE BLOOD COUNT 15.6 10^3/uL (4.3-11.0)
[2021-05-26 06:17] LABS: HEMOGLOBIN 6.6 g/dL (11.5-16.0)
[2021-05-26 06:21] LABS: POTASSIUM 4.3 MMOL/L (3.6-5.0)
[2021-05-26 06:22] LABS: CALCIUM 6.7 MG/DL (8.5-10.1)
[2021-05-26 06:26] LABS: CREATININE SERUM 2.64 MG/DL (0.60-1.30)
[2021-05-26] MEDS: inSUlin ASPART (NovoLOG) 1 UNIT/0.01 ML (CHARGE PER UNIT) SC SCH ×4 (06:42→20:06)
[2021-05-26] MEDS ORDERED: NS IV 500 ML 500 ML IV ONE (06:45)
[2021-05-26] MEDS ORDERED: NS IV 500 ML 500 ML IV SCH (06:45)
--- NOTE | 2021-05-26 07:09 | Diagnostic Imaging Report ---
EXAM: CHEST 1 VIEW, AP/PA ONLY INDICATION: Sepsis. COMPARISON: Chest radiograph 10/02/2020. FINDINGS: Heart size upper limits of normal. Normal central pulmonary vascularity. Mild atelectasis or infiltrate in the left lung base. No pleural effusion or pneumothorax. No acute osseous findings. IMPRESSION: 1. Borderline heart size with normal central pulmonary vascularity are stable. 2. Mild atelectasis or infiltrate in the left lung base. Dictated by: Dictated on workstation # [id number]
--- NOTE | 2021-05-26 08:50 | History & Physical ---
History of Present Illness History of Present Illness Reason for visit/HPI PT IS A 65 Y/O FEMALE WHO IS A CLINIC PATIENT OF DR. 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 SHE REPORTS THAT SHE WAS FEELING POORLY OFF AND ON FOR THE PAST WEEK. SHE STATES THAT SHE HAD A FEVER AND CHILLS TWICE OVER THE PAST WEEK. SHE DENIES COUGH, ABDOMINAL PAIN, NAUSEA, DIARRHEA. SHE REPORTS THAT SHE HAS HAD A WOUND ON HER BUTTOCK FOR THE PAST WEEK. SHE REPORTS THAT THE SITE ON HER BUTTOCK HAS BEEN DRAINING FOR AT LEAST A WEEK. Date of Admission May 26, 2021 at 03:15 Date Seen by a Provider: May 26, 2021 Time Seen by a Provider: 08:45 Attending Physician Ebony Arias MD Admitting Physician Robinson Ramos DO Consult Allergies and Home Medications Allergies Coded Allergies: No Known Allergies (Verified Allergy, Unknown, 03/06/21) adhesive tape (Unverified Adverse Reaction, Unknown, 11/19/17) Home Medications Amlodipine Besylate 2.5 Mg Tablet, 2.5 MG PO DAILY, (Reported) Last Action: Held Atorvastatin Calcium 20 Mg Tablet, 20 MG PO DAILY, (Reported) Last Action: Held Benzocaine/Menthol 78 Gm Aerosol, 1 EA TP TID PRN for pain Prescribed by: JOSE RENDON on 03/09/21 0837 Last Action: Held Cyclosporine 1 Each Droperette, 1 DROP OU DAILY, (Reported) Last Action: Held Doxycycline Hyclate 100 Mg Capsule, 100 MG PO BID Prescribed by: ROBINSON RAMOS on 03/09/21 1106 Last Action: Held Ergocalciferol (Vitamin D2) 1,250 Mcg Capsule, 1,250 MCG PO SUN, (Reported) Last Action: Held Gabapentin 100 Mg Capsule, 200 MG PO HS, (Reported) TAKES 2 (100MG) CAPS Last Action: Reviewed Latanoprost 2.5 Ml Drops, 1 DROP OU HS, (Reported) Last Action: Reviewed Levothyroxine Sodium 175 Mcg Tablet, 175 MCG PO DAILY, (Reported) Last Action: Reviewed Mirtazapine 15 Mg Tablet, 15 MG PO HS, (Reported) Last Action: Reviewed Tizanidine HCl 4 Mg Tablet, 4 MG PO BID PRN for MUSCLE SPASMS, (Reported) Last Action: Held Patient Home Medication List Home Medication List Reviewed: Yes Past Kfyntln-Tnmtba-Hzrmvv Hx Patient Social History Living Status: LIVES IN HOME ALONE Employed/Student: retired Tobacco Use?: No Smoking Status: Never a Smoker Substance use?: No Alcohol Use?: No Pt feels they are or have been: No Immunizations Up To Date Date of Influenza Vaccine: Sep 19, 2021 First/Initial COVID19 Vaccinat: 2020 Second COVID19 Vaccination Portillo: 2020 PED Vaccines UTD: Yes Date of Pneumonia Vaccine: Oct 20, 2009 Seasonal Allergies Seasonal Allergies: No Current Status Advance Directives: No Communicates: Verbally Primary Language: Frisian Preferred Spoken Language: Frisian Is interpretation needed?: No Implanted or Applied Medical D: None Past Medical History Surgeries: Abdominal (PANICULECTOMY), Gallbladder, Thyroidectomy Currently Using CPAP: No Currently Using BIPAP: No High Cholesterol, Hypertension Neuropathy 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 DOES NOT SEE AN ONCOLOGIST OR RECLAMATION WORKER Anxiety, Depression Blood Disorders: No Family Medical History Reviewed and Corrections made Heart Disease, Diabetes, Hypertension, Other Conditions/Hx (SISTER WITH THYROID DISORDER) PAST SURGICAL /PROCEDURAL HISTORY: -FLEXIBLE SIGMOIDOSCOPY 10/2013 -GASTRIC BYPASS -THYROIDECTOMY 2009 -CHOLECYSTECTOMY - PANICULECTOMY Review of Systems Constitutional: chills, fever, malaise, weakness EENTM: No hearing loss, No hoarseness, No throat pain Respiratory: No cough, No dyspnea on exertion, No short of breath Cardiovascular: No chest pain, No edema, No palpitations Gastrointestinal: No abdominal pain, No diarrhea, No nausea, No vomiting Genitourinary: no symptoms reported Musculoskeletal: No back pain, No muscle weakness, No neck pain Skin: other (OOZING LESION ON LEFT BUTTOCK) Psychiatric/Neurological: Denies Anxiety, Denies Depressed; Numbness (OF FEET), Weakness All Other Systems Reviewed Negative Unless Noted: Yes Physical Exam Vital Signs Vital Signs - First Documented 05/26/21 05/26/21 01:23 05:17 Temp 38.2 Pulse 133 Resp 26 B/P (MAP) 103/69 (80) Pulse Ox 96 O2 Delivery Room Air FiO2 21 Capillary Refill : Less Than 3 Seconds Height, Weight, BMI Height: 5'1.00" Weight: 298lbs. 2.0oz. 135.045090tt; 43.24 BMI Method:Stated General Appearance: No Apparent Distress, WD/WN Eyes: Bilateral Eye Normal Inspection, Bilateral Eye PERRL, Bilateral Eye EOMI HEENT: PERRL/EOMI, Pharynx Normal Neck: Full Range of Motion, Non Tender, Supple Respiratory: Chest Non Tender, Decreased Breath Sounds (IN BASES) Cardiovascular: Regular Rate, Rhythm, Normal Peripheral Pulses Gastrointestinal: Normal Bowel Sounds, No Organomegaly, No Pulsatile Mass, Non Tender, Soft Rectal: Deferred Back: Normal Inspection, No Vertebral Tenderness Extremity: Normal Capillary Refill, Non Tender, No Calf Tenderness, No Pedal Edema Neurologic/Psychiatric: Alert, Oriented x3, No Motor/Sensory Deficits, Normal Mood/Affect Skin: Warm/Dry, Other (OOZING WOUND ON LEFT BUTTOCK WITH INDURATION, NO ERYTHEMA NOTED. MULTIPLE SITES OF PREVIOUS WOUNDS WITH POCK-MARKED SKIN TISSUE.) Assessment/Plan Assessment and Plan SEPSIS LEUKOCYTOSIS GLUTEAL ABSCESS ACUTE ON CHRONIC RENAL FAILURE END STAGE CHRONIC HYPERTENSION DIABETES MELLITUS 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 PERIPHERAL NEUROPATHY HYPERLIPIDEMIA HYPOTHYROIDISM INSOMNIA SEPSIS WITH LEUKOCYTOSIS - GLUTEAL ABSCESS - PT ON ZOSYN - CULTURE OF WOUND OBTAINED - BLOOD CULTURE PENDING ACUTE ON CHRONIC RENAL FAILURE END STAGE - SUPPORTIVE CARE - RENAL DOSING OF MEDICATION - PT IS TO SEE SURGEON IN THE NEXT TWO WEEKS FOR FISTULA EVALUATION CHRONIC HYPERTENSION - HOLD MEDS FOR NOW DUE TO HYPOTENSION FROM SEPSIS, MONITOR PRESSURES CLOSELY, WILL CONSIDER RESUMING MEDS PENDING BP CHANGES. DIABETES MELLITUS - MONITOR FSBS - DIABETIC DIET - CHECK HGBA1C 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 CHRONIC DISEASES - CHECK OCCULT STOOLS - WILL TRANSFUSE 1 UNIT TODAY - REPEAT LABS IN MORNING - ADD IRON LEVEL TO BLOOD IN LAB PERIPHERAL NEUROPATHY - RESUMED GABAPENTIN HYPERLIPIDEMIA - HOLD HOME MED TODAY- CONSIDER RESTARTING LATER ONCE SEPSIS IMPROVES HYPOTHYROIDISM - RESUME HOME REGIMEN, CHECK LABS INSOMNIA - RESUMED MIRTAZEPINE DVT PROPHYLAXIS WITH SCD'S AND LOVENOX (WILL STOP LOVENOX IF HGB DROPS FURTHER OR IF OCCULT STOOL IS POSITIVE) GI PROPHLYAXIS WITH PPI AND PROBIOTIC Admission Diagnosis SEPSIS LEUKOCYTOSIS GLUTEAL ABSCESS ACUTE ON CHRONIC RENAL FAILURE END STAGE CHRONIC HYPERTENSION DIABETES MELLITUS 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 PERIPHERAL NEUROPATHY HYPERLIPIDEMIA HYPOTHYROIDISM INSOMNIA Admission Status: Inpatient Order (span 2 midnights) Reason for Inpatient Admission: INPT ADMISSION FOR SEPSIS WITH ANEMIA AND ACUTE ON CHRONIC RENAL FAILURE - WILL REQUIRE AT LEAST 72 HOURS FOR STABILITY PRIOR TO DISCHARGE EBONY ARIAS MD May 26, 2021 08:49
--- NOTE | 2021-05-26 09:01 | Tele-ICU Progress Note ---
Subjective Date Seen by a Provider: May 26, 2021 Time Seen by a Provider: 08:00 Subjective/Events-last exam Thank you for asking us to see this patient for respiratory insufficiency and distress due to LLL pna and sepsis. HPC: Recent events: Low BP earlier 76/45 and responded to 1 L NS bolus PMH: CRI DM Morbid obesity HTN HL hypothy. SH: smoking history: N FH: Non-contributory. ROS: limited but only in HPI. PE: VSS. Obese, conversant. HEENT: No obvious masses, adenopathy or JVD. Chest: clear to auscultation. CV: RRR S1 S2 No murmur or added sounds. Abd: Non-tender. Bowel sounds Y. : Unremarkable. 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 No obvious focal findings. Extremities: Trace edema. Capillary refill < 3 seconds. Skin: unremarkable. Results: Elevated WCC 15.6, BUN 33, Cr 2.64, Lactate 2.12. Decreased Hb 6.6. A/P: Respiratory insufficiency/distress/pna/sepsis: Cont rocephin, AZT, BDs. Available chart/ vitals / labs / Images reviewed. Video assessment done using teleICU camera, rest of exam as per RN. Monitor for increasing oxygenation needs and/or need for intubation. Critical Care: critically ill patient. Discussed with RN Rhoda. Asked RN to reach out to eICU if any questions or concerns later. Time spent with patient/coordination of care with other health professionals (mins):20 Sepsis Event Evaluation Height, Weight, BMI Height: 5'1.00" Weight: 298lbs. 2.0oz. 135.986195tq; 43.24 BMI Method:Stated Focused Exam Lactate Level 05/26/21 01:30: Lactic Acid Level 2.12*H 05/26/21 06:00: Lactic Acid Level 0.67 Time of Focused Exam: 03:15 Lactic Acid Level Laboratory Tests Test 05/26/21 06:00 Lactic Acid Level 0.67 MMOL/L (0.50-2.00) Exam Exam Patient acknowledged, consented, and participated in this virtual visit which was conducted using real time audio/video Vital Signs Date Time Temp Pulse Resp B/P (MAP) Pulse Ox O2 Delivery O2 Flow Rate FiO2 05/26/21 08:00 82 16 85/50 (62) 95 Room Air 05/26/21 07:47 36.4 05/26/21 07:00 92 36 89/49 (64) 95 Room Air 05/26/21 07:00 88 05/26/21 06:16 Room Air 05/26/21 05:33 100 05/26/21 05:17 38.2 133 96 21 05/26/21 05:03 37.7 109 18 101/53 (69) 96 Room Air 05/26/21 04:40 37.7 112 24 90/41 97 05/26/21 01:23 38.2 133 26 103/69 (80) 96 Room Air I & O 05/26/21 07:00 Intake Total 1410 ml Output Total 100 ml Balance 1310 ml Height & Weight Height: 5'1.00" Weight: 298lbs. 2.0oz. 135.364631tw; 43.24 BMI Method:Stated General Appearance: No Apparent Distress, WD/WN, Obese (MORBIDLY OBESE), Other (HEAD IS COMPLETELY SHAVED, WITH FRONTAL BALDING PATTERN; PT IS SHIVERING; DOES NOT APPEAR DYSPNEIC OR TO BE IN ACUTE DISTRESS. PT IS VERY PLEASANT. 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
--- NOTE | 2021-05-26 10:18 | Diagnostic Imaging Report ---
EXAM: CHEST 1 VIEW, AP/PA ONLY INDICATION: Pneumonia. COMPARISON: Chest radiograph 05/26/2021 at 2:58 AM. FINDINGS: Stable borderline heart size with normal central pulmonary vascularity. No residual focal pulmonary opacity. No pleural effusion or pneumothorax. No acute osseous findings IMPRESSION: No acute cardiopulmonary findings. No residual airspace consolidation in the left lung base. Dictated by: Dictated on workstation # [id number]
--- NOTE | 2021-05-26 11:34 | Consultation-Cardiology ---
HPI-Cardiology Cardiology Consultation Date of Consultation 05/26/21 Date of Admission Time Seen by Provider: 08:00 Indication: Acute respiratory failure HPI 65-year-old lady with history of COPD, she was admitted with left lower lobe pneumonia, she was having increasing chills and cough. Mild shortness of breath. She was transferred to intensive care unit for respiratory failure and noted to be tachycardic. On my evaluation she was feeling better, reporting improvement in her breathing. Heart rate is better. Denied any chest pain. Home Medications & Allergies Allergies: Coded Allergies: No Known Allergies (Verified Allergy, Unknown, 03/06/21) adhesive tape (Unverified Adverse Reaction, Unknown, 11/19/17) Home Medication List Reviewed: Yes TDO-Rjjyap-Jxrhpr Hx Patient Social History Smoking Status: Never a Smoker Recent Hopitalizations: Yes (dc'd [facility] 10/07/20) Have you traveled recently?: No Alcohol Use?: No Immunizations Up To Date Tetanus Booster (TDap): Less than 5yrs Date of Pneumonia Vaccine: Oct 20, 2009 Date of Influenza Vaccine: Sep 19, 2021 Past Medical History Discussed below Family Medical History Family Medical Hx Noncontributory Review of Systems-General Review of Systems Constitutional: see HPI, chills, diaphoresis, fever EENTM: no symptoms reported Respiratory: see HPI, cough Cardiovascular: no symptoms reported Gastrointestinal: no symptoms reported Genitourinary: no symptoms reported Musculoskeletal: no symptoms reported Skin: no symptoms reported Psychiatric/Neurological: No Symptoms Reported Reviewed Test Results Reviewed Test Results Lab Laboratory Tests Test 05/26/21 01:30 05/26/21 01:47 05/26/21 06:00 05/26/21 10:24 Range/Units White Blood Count 13.6 H 15.6 H 4.3-11.0 10^3/uL Red Blood Count 2.74 L 2.04 L 3.80-5.11 10^6/uL Hemoglobin 8.7 L 6.6 #*L 11.5-16.0 g/dL Hematocrit 29 L 23 L 35-52 % Mean Corpuscular Volume 105 H 110 H 80-99 fL Mean Corpuscular Hemoglobin 32 32 25-34 pg Mean Corpuscular Hemoglobin Concent 30 L 29 L 32-36 g/dL Red Cell Distribution Width 14.3 14.1 10.0-14.5 % Platelet Count 235 192 130-400 10^3/uL Mean Platelet Volume 11.5 11.4 9.0-12.2 fL Immature Granulocyte % (Auto) 1 1 % Neutrophils (%) (Auto) 87 H 92 H 42-75 % Lymphocytes (%) (Auto) 10 L 4 L 12-44 % Monocytes (%) (Auto) 2 4 0-12 % Eosinophils (%) (Auto) 0 0 0-10 % Basophils (%) (Auto) 0 0 0-10 % Neutrophils # (Auto) 11.8 H 14.3 H 1.8-7.8 10^3/uL Lymphocytes # (Auto) 1.4 0.6 L 1.0-4.0 10^3/uL Monocytes # (Auto) 0.2 0.6 0.0-1.0 10^3/uL Eosinophils # (Auto) 0.1 0.0 0.0-0.3 10^3/uL Basophils # (Auto) 0.0 0.0 0.0-0.1 10^3/uL Immature Granulocyte # (Auto) 0.1 0.1 0.0-0.1 10^3/uL Neutrophils % (Manual) 90 % Lymphocytes % (Manual) 8 % Monocytes % (Manual) 1 % Eosinophils % (Manual) 1 % Nucleated Red Blood Cells 1 Polychromasia SLIGHT Erythrocyte Sedimentation Rate > 140 H 0-30 MM/HR Prothrombin Time 16.3 H 12.2-14.7 SEC INR Comment 1.3 0.8-1.4 Activated Partial Thromboplast Time 35 24-35 SEC D-Dimer 3.69 H 0.00-0.49 UG/ML Sodium Level 140 139 135-145 MMOL/L Potassium Level 5.0 4.3 3.6-5.0 MMOL/L Chloride Level 113 H 118 H 98-107 MMOL/L Carbon Dioxide Level 12 L 11 L 21-32 MMOL/L Anion Gap 15 H 10 5-14 MMOL/L Blood Urea Nitrogen 33 H 33 H 7-18 MG/DL Creatinine 2.86 H 2.64 H 0.60-1.30 MG/DL Estimat Glomerular Filtration Rate 17 18 BUN/Creatinine Ratio 12 13 Glucose Level 161 H 213 H 70-105 MG/DL Lactic Acid Level 2.12 *H 0.67 0.50-2.00 MMOL/L Calcium Level 7.8 L 6.7 L 8.5-10.1 MG/DL Corrected Calcium 8.6 8.5-10.1 MG/DL Total Bilirubin 0.5 0.1-1.0 MG/DL Aspartate Amino Transf (AST/SGOT) 21 5-34 U/L Alanine Aminotransferase (ALT/SGPT) 20 0-55 U/L Alkaline Phosphatase 162 H 40-136 U/L Lactate Dehydrogenase 209 125-220 U/L C-Reactive Protein High Sensitivity 3.55 H 0.00-0.50 MG/DL Total Protein 7.2 6.4-8.2 GM/DL Albumin 3.0 L 3.2-4.5 GM/DL Procalcitonin 0.53 H <0.10 NG/ML SARS-CoV-2 RNA (RT-PCR) Not Detected Not Detecte Urine Color YELLOW Urine Clarity CLEAR Urine pH 5.0 5-9 Urine Specific [place] 1.025 H 1.016-1.022 Urine Protein NEGATIVE NEGATIVE Urine Glucose (UA) NEGATIVE NEGATIVE Urine Ketones NEGATIVE NEGATIVE Urine Nitrite NEGATIVE NEGATIVE Urine Bilirubin NEGATIVE NEGATIVE Urine Urobilinogen 0.2 < = 1.0 MG/DL Urine Leukocyte Esterase NEGATIVE NEGATIVE Urine RBC (Auto) NEGATIVE NEGATIVE Urine RBC NONE /HPF Urine WBC 0-2 /HPF Urine Squamous Epithelial Cells 2-5 /HPF Urine Renal Epithelial Cells NONE /HPF Urine Crystals NONE /LPF Urine Bacteria NEGATIVE /HPF Urine Casts NONE /LPF Urine Mucus NEGATIVE /LPF Urine Culture Indicated CULTURE PENDING Glucometer 109 70-110 MG/DL Physical Exam Physical Exam Vital Signs Vital Signs - First Documented 05/26/21 05/26/21 01:23 05:17 Temp 38.2 Pulse 133 Resp 26 B/P (MAP) 103/69 (80) Pulse Ox 96 O2 Delivery Room Air FiO2 21 Capillary Refill : Less Than 3 Seconds Height, Weight, BMI Height: 5'1.00" Weight: 298lbs. 2.0oz. 135.293883rf; 43.24 BMI Method:Stated General Appearance: No Apparent Distress, WD/WN, Obese (MORBIDLY OBESE), Other (HEAD IS COMPLETELY SHAVED, WITH FRONTAL BALDING PATTERN; PT IS SHIVERING; DOES NOT APPEAR DYSPNEIC OR TO BE IN ACUTE DISTRESS. PT IS VERY PLEASANT. 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 Managed by primary care team Sinus tachycardia, better at this time, continue to monitor on telemetry Acute on chronic renal insufficiency, continue to monitor renal function Severe anemia, receiving blood transfusion, monitor H&H. Acute exacerbation of COPD. YUE PAL MD May 26, 2021 11:34
[2021-05-26] MEDS ORDERED: PANTOPRAZOLE 20 MG TABLET (PROTONIX) PO ONE (13:15)
[2021-05-26 13:50] LABS: FREE T4 (FREE THYROXINE) 0.95 NG/DL (0.70-1.48)
[2021-05-26 14:26] LABS: HEMOGLOBIN 7.9 g/dL (11.5-16.0)
[2021-05-26] MEDS: LACTOBACILLUS ACIDOPHILUS (PROBIOTIC) CAPSULE PO SCH (16:59)
[2021-05-26 20:24] LABS: HEMOGLOBIN 8.5 g/dL (11.5-16.0)
[2021-05-27] VITALS (12 sets, daily range): BP systolic 120–146; BP diastolic 59–77
[2021-05-27] MEDS: NS IV 1000 ML 1,000 ML IV SCH ×3 (02:00→20:44)
[2021-05-27 03:47] LABS: HEMATOCRIT 30 % (35-52); HEMOGLOBIN 8.8 g/dL (11.5-16.0); MEAN CORPUSCULAR HEMOGLOBIN 31 pg (25-34); MEAN CORPUSCULAR HGB CONC 29 g/dL (32-36); MEAN CORPUSCULAR VOLUME 106 fL (80-99); MEAN PLATELET VOLUME 11.3 fL (9.0-12.2); PLATELET COUNT 151 10^3/uL (130-400)
[2021-05-27 03:57] LABS: POTASSIUM 4.4 MMOL/L (3.6-5.0)
[2021-05-27 03:59] LABS: CALCIUM 6.9 MG/DL (8.5-10.1)
[2021-05-27 04:03] LABS: CREATININE SERUM 2.51 MG/DL (0.60-1.30)
[2021-05-27] MEDS: inSUlin ASPART (NovoLOG) 1 UNIT/0.01 ML (CHARGE PER UNIT) SC SCH ×4 (05:27→20:26)
[2021-05-27] MEDS: cefTRIAXone 1,000 MG in WATER (STERILE) FOR INJECTION 10 ML IV SCH (05:43)
[2021-05-27 05:45] LABS: PHOSPHORUS 3.5 MG/DL (2.3-4.7)
[2021-05-27 05:47] LABS: MAGNESIUM 1.4 MG/DL (1.6-2.4)
[2021-05-27] MEDS: MAGNESIUM 1 GM/100 ML IVPB 100 ML IV SCH ×2 (07:14→08:04)
[2021-05-27] MEDS: LACTOBACILLUS ACIDOPHILUS (PROBIOTIC) CAPSULE PO SCH ×3 (08:03→18:37)
[2021-05-27] MEDS: PANTOPRAZOLE 20 MG TABLET (PROTONIX) PO SCH (08:04)
--- NOTE | 2021-05-27 08:42 | Diagnostic Imaging Report ---
INDICATION: Pneumonia EXAMINATION: Chest 05/27/2021 COMPARISON: 05/26/2021 FINDINGS: The heart is prominent. Pulmonary vasculature unremarkable. There is a vague focus of atelectasis or infiltrate in the right costophrenic angle new since the previous imaging. No effusions. No pneumothorax. IMPRESSION: 1. New vague infiltrate or focus of atelectasis in the right costophrenic angle. Remaining chest is stable. Dictated by: Dictated on workstation # [id number]
--- NOTE | 2021-05-27 08:49 | Progress Note ---
Subjective Subjective Date Seen by Provider: May 27, 2021 Time Seen by Provider: 08:49 SEE MY DOCUMENTATION ON STUDENT NOTE All Other Systems Reviewed All Other Systems Reviewed: Yes Objective Exam Vital Signs Vital Signs Date Time Temp Pulse Resp B/P (MAP) Pulse Ox O2 Delivery O2 Flow Rate FiO2 05/27/21 08:42 37.3 05/27/21 08:00 85 25 137/68 (91) 96 Room Air 05/27/21 07:00 91 05/27/21 07:00 92 21 140/67 (91) 95 Room Air 05/27/21 06:00 87 27 132/68 (89) 95 Room Air 05/27/21 05:00 89 21 129/60 (83) 95 Room Air 05/27/21 04:00 Room Air 05/27/21 04:00 92 24 143/70 (94) 94 Room Air 05/27/21 04:00 37.1 05/27/21 03:00 90 18 145/73 (97) 96 Room Air 05/27/21 02:00 93 16 146/77 (100) 95 Room Air 05/27/21 01:00 90 05/27/21 01:00 86 19 141/69 (93) 99 Room Air 05/27/21 00:00 82 22 141/71 (94) 99 Room Air 05/27/21 00:00 37.0 05/26/21 23:58 Room Air 05/26/21 23:00 80 27 99 Room Air 05/26/21 22:00 81 17 94 Room Air 05/26/21 21:00 78 19 130/72 (91) 97 Room Air 05/26/21 20:06 36.6 80 18 123/85 (98) 100 Room Air 05/26/21 20:00 Room Air 05/26/21 19:00 80 05/26/21 19:00 74 20 128/68 (88) 99 Room Air 05/26/21 18:00 75 17 117/58 (77) 96 Room Air 05/26/21 17:00 71 24 114/58 (76) 99 Room Air 05/26/21 16:00 70 19 113/60 (77) 98 Room Air 05/26/21 15:25 Room Air 05/26/21 15:03 36.2 05/26/21 15:00 72 15 112/61 (78) 98 Room Air 05/26/21 14:00 70 21 105/57 (73) 99 Room Air 05/26/21 13:00 72 15 104/60 (75) 95 Room Air 05/26/21 13:00 71 05/26/21 12:00 70 21 94/51 (65) 95 Room Air 05/26/21 11:55 36.2 05/26/21 11:39 36.0 73 19 97/55 97 Room Air 05/26/21 11:17 Room Air 05/26/21 11:00 74 22 98/59 (72) 97 Room Air 05/26/21 10:00 76 20 91/52 (67) 99 Room Air 05/26/21 09:20 36.4 82 21 100/64 97 Room Air 05/26/21 09:00 36.2 78 19 94/57 99 Room Air 05/26/21 09:00 78 22 98/57 (74) 100 Room Air I & O 05/27/21 07:00 Intake Total 3370 ml Output Total 1360 ml Balance 2010 ml General Appearance: No Apparent Distress, WD/WN Eyes: Bilateral Eye Normal Inspection, Bilateral Eye PERRL, Bilateral Eye EOMI HEENT: PERRL/EOMI, Pharynx Normal Neck: Full Range of Motion, Non Tender, Supple Respiratory: Chest Non Tender, Decreased Breath Sounds (IN BASES) Cardiovascular: Regular Rate, Rhythm, Normal Peripheral Pulses Gastrointestinal: Normal Bowel Sounds, No Organomegaly, No Pulsatile Mass, Non Tender, Soft Rectal: Deferred Back: Normal Inspection, No Vertebral Tenderness Extremity: Normal Capillary Refill, Non Tender, No Calf Tenderness, No Pedal Edema Neurologic/Psychiatric: Alert, Oriented x3, No Motor/Sensory Deficits, Normal Mood/Affect Skin: Warm/Dry, Other (OOZING WOUND ON LEFT BUTTOCK WITH INDURATION, NO ERYTHEMA NOTED. MULTIPLE SITES OF PREVIOUS WOUNDS WITH POCK-MARKED SKIN TISSUE.) Lymphatic: No Adenopathy Results Lab Laboratory Tests 05/26/21 10:24: Glucometer 109 05/26/21 11:55: Glucometer 92 05/26/21 14:18: Hemoglobin 7.9L, Hematocrit 26L 05/26/21 15:05: Glucometer 78 05/26/21 20:03: Glucometer 81 05/26/21 20:17: Hemoglobin 8.5L, Hematocrit 29L 05/27/21 03:04: Hemoglobin 8.8L, Hematocrit 30L, White Blood Count 8.0, Red Blood Count 2.83L, Mean Corpuscular Volume 106H, Mean Corpuscular Hemoglobin 31, Mean Corpuscular Hemoglobin Concent 29L, Red Cell Distribution Width 17.5H, Platelet Count 151, Mean Platelet Volume 11.3, Sodium Level 142, Potassium Level 4.4, Chloride Level 120H, Carbon Dioxide Level 11L, Anion Gap 11, Blood Urea Nitrogen 31H, Creatinine 2.51H, Estimat Glomerular Filtration Rate 19, BUN/Creatinine Ratio 12, Glucose Level 117H, Calcium Level 6.9L, Phosphorus Level 3.5, Magnesium Level 1.4L Microbiology 05/26/21 MRSA Screen - Final, Complete MRSA not isolated Assessment/Plan Assessment/Plan Admission Dx SEPSIS LEUKOCYTOSIS GLUTEAL ABSCESS ACUTE ON CHRONIC RENAL FAILURE END STAGE CHRONIC HYPERTENSION DIABETES MELLITUS 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 PERIPHERAL NEUROPATHY HYPERLIPIDEMIA HYPOTHYROIDISM INSOMNIA Admission Dx SEPSIS LEUKOCYTOSIS GLUTEAL ABSCESS ACUTE ON CHRONIC RENAL FAILURE END STAGE CHRONIC HYPERTENSION DIABETES MELLITUS 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
[2021-05-27] MEDS ORDERED: GLIP5TAB26 PO (08:50)
[2021-05-27] MEDS ORDERED: LOSA25TA41 PO (08:50)
[2021-05-27] MEDS ORDERED: SEMA0.25 (08:50)
[2021-05-27] MEDS ORDERED: FURO40TA4 PO (08:50)
[2021-05-27] MEDS ORDERED: GABAPENTIN 100 MG (NEURONTIN) CAP PO ONE (09:00)
--- NOTE | 2021-05-27 09:09 | Tele-ICU Progress Note ---
Progress Note video rounds completed 65 y/o male admitted with urosepsis and PNA Started on azithromycin and ceftriaxone PE: appears comfortable in bed Pulse: 86 NSR BP: 11/82 O2 sat:92% labs: WBC: 8 hgb: 8.8 Na: 142 Kl; 4.4 Cl: 120 CO2 : 11 BUN: 31 Creat: 2.5 GlU: 117 imp; sespsis improving, HDS Continue present plan Focused Exam Lactate Level 05/26/21 01:30: Lactic Acid Level 2.12*H 05/26/21 06:00: Lactic Acid Level 0.67 Height, Weight, BMI Height: 5'1.00" Weight: 298lbs. 2.0oz. 135.950509vv; 43.24 BMI Method:Stated Time of Focused Exam: 03:15 MERCY MARTÍNEZ MD May 27, 2021 09:09
[2021-05-27] MEDS: AZITHROMYCIN INJECTION 500 MG in NS (IVPB) 250 ML IV SCH (09:26)
[2021-05-27] MEDS: ENOXAPARIN 30 MG/0.3 ML (LOVENOX) SYR SC SCH (09:26)
--- NOTE | 2021-05-27 10:23 | Progress Note - Hospitalist ---
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 PT STATES SHE DID NOT SLEEP LAST NOC D/T NOT HAVING GABAPENTIN OR MIRTAZAPINE. PT ALSO COMPLAINS OF CYCLIC CONSTIPATION AND DIARRHEA FOR THE LAST MONTH. Review of Systems General: Chills Pulmonary: No Dyspnea, No Cough Cardiovascular: No: Chest Pain, Palpitations Gastrointestinal: No: Diarrhea, Constipation Focused Exam Lactate Level 05/26/21 01:30: Lactic Acid Level 2.12*H 05/26/21 06:00: Lactic Acid Level 0.67 Time of Focused Exam: 03:15 Objective Exam Vital Signs Vital Signs Date Time Temp Pulse Resp B/P (MAP) Pulse Ox O2 Delivery O2 Flow Rate FiO2 05/27/21 08:42 37.3 05/27/21 08:00 Room Air 05/27/21 08:00 85 25 137/68 (91) 96 05/26/21 05:17 21 Capillary Refill : Less Than 3 Seconds General Appearance: No Apparent Distress, Obese Respiratory: Lungs Clear, Normal Breath Sounds, No Accessory Muscle Use, No Respiratory Distress Cardiovascular: Regular Rate, Rhythm Gastrointestinal: Normal Bowel Sounds, Non Tender, Soft Extremity: Pedal Edema Neurologic/Psychiatric: Alert, Oriented x3 Skin: Normal Color Results/Procedures Lab Laboratory Tests 05/26/21 14:18 05/26/21 20:17 05/27/21 03:04 Patient resulted labs reviewed. 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 DIABETES MELLITUS - MONITOR FSBS - DIABETIC DIET - CHECK HGBA1C 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 CHRONIC DISEASES - CHECK OCCULT STOOLS - IMPROVING, H/H 8.8 AND 30 TODAY PERIPHERAL NEUROPATHY - RESUMED GABAPENTIN HYPERLIPIDEMIA - HOLD HOME MED TODAY- CONSIDER RESTARTING LATER ONCE SEPSIS IMPROVES HYPOTHYROIDISM - RESUME HOME REGIMEN, CHECK LABS INSOMNIA - RESUMED MIRTAZEPINE CONSTIPATION/DIARRHEA -ADVISED PT TO TAKE LOW DOSE MIRALAX DAILY UPON D/C TO TRY TO SOFTEN STOOLS. ADVISED NOT TO TAKE FULL DOSE THIS MAY CAUSE DIARRHEA. HYPOCALCEMIA -WILL CONTINUE TO MONITOR HYPOMAGNESEMIA -GIVE ONE DOSE MAG SULFATE 1G IV TRANSFER FROM ICU TO 4TH FLOOR DVT PROPHYLAXIS WITH SCD'S AND LOVENOX (WILL STOP LOVENOX IF HGB DROPS FURTHER OR IF OCCULT STOOL IS POSITIVE) GI PROPHLYAXIS WITH PPI AND PROBIOTIC EBONY HELTON MD 05/27/21 1110: Subjective Subjective/Events-last exam PT REPORTS THAT SHE IS FEELING BETTER, BUT HAD A ROUGH NIGHT LAST NIGHT DUE TO NOT HAVING HER MIRTAZAPINE (NOTE SHOULD BE MADE THAT PT DID NOT ALERT NURSE AND I WAS, THEREFORE, NOT CALLED FOR RESTARTING THE MEDICATION. SHE IS ALSO COMPLAINING OF NEUROPATHIC SYMPTOMS AND REQUESTING GABAPENTIN TO BE RESTARTED. SHE DENIES CHEST PAIN, SHORTNESS OF BREATH, BUT DOES REPORT INTERMITTENT CONSTIPATION, DIARRHEA. Objective Exam General Appearance: No Apparent Distress, WD/WN HEENT: PERRL/EOMI Neck: Supple Respiratory: Chest Non Tender, Lungs Clear, Normal Breath Sounds, No Accessory Muscle Use, No Respiratory Distress Cardiovascular: Regular Rate, Rhythm Gastrointestinal: Normal Bowel Sounds, No Organomegaly, No Pulsatile Mass, Non Tender, Soft, Other (OBESE ABDOMEN) Rectal: Deferred Back: Normal Inspection Extremity: Pedal Edema (TRACE) Neurologic/Psychiatric: Alert, Oriented x3 Skin: Normal Color Assessment/Plan Assessment and Plan Assess & Plan/Chief Complaint SEPSIS LEUKOCYTOSIS GLUTEAL ABSCESS ACUTE ON CHRONIC RENAL FAILURE END STAGE CHRONIC HYPERTENSION DIABETES MELLITUS 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 PERIPHERAL NEUROPATHY HYPERLIPIDEMIA HYPOTHYROIDISM INSOMNIA HYPOMAGNESEMIA SEPSIS WITH LEUKOCYTOSIS - GLUTEAL ABSCESS - PT ON ZOSYN - CULTURE OF WOUND OBTAINED - REPORT IS OF MIXED ORGANISMS ACUTE ON CHRONIC RENAL FAILURE END STAGE - MONITOR LABS CHRONIC HYPERTENSION - RESUME [place] DUE TO ELEVATING BP DIABETES MELLITUS - MONITOR FSBS, CONTINUE WITH 45 GRAM CARB DIABETIC DIET - CHECKED HGBA1C - RESULTS PENDING 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 CHRONIC DISEASES - CONTINUE TO MONITOR PERIPHERAL NEUROPATHY - RESUMED GABAPENTIN HYPOTHYROIDISM - RESUMED HOME REGIMEN, CHECK LABS INSOMNIA - RESUMED MIRTAZEPINE DVT PROPHYLAXIS WITH SCD'S AND LOVENOX (WILL STOP LOVENOX IF HGB DROPS FURTHER OR IF OCCULT STOOL IS POSITIVE) GI PROPHLYAXIS WITH PPI AND PROBIOTIC Supervisory-Addendum Brief Verification & Attestation Participated in pt care: history, MDM, physical Personally performed: exam, history, MDM, supervision of care Care discussed with: Medical Student Procedures: n/a Results interpretation: Verified all documentation I AGREE WITH STUDENT NOTE DOCUMENTED. I HAVE PERSONALLY REVIEWED THE CHART, LABS, IMAGING, AND INTERVIEWED THE PATIENT AND DISCUSSED OUR PLAN OF CARE WITH THE PATIENT. WE WILL TRANSFER HER DOWN FROM THE ICU TO THE 4TH FLOOR, RE-EVALUATE HER SITUATION TOMORROW AND CONSIDER DC TO HOME FRIDAY OR FRIDAY PENDING HER LABS AND SYMPTOMS. VASILE VAIL MED STUDENT May 27, 2021 10:22 EBONY HELTON MD May 27, 2021 11:10
--- NOTE | 2021-05-27 10:31 | Cardiology Progress Note ---
Subjective Date Seen by Provider: May 27, 2021 Time Seen by Provider: 10:30 Subjective/Events-last exam Patient was seen at bedside, laying down comfortably, no new complaint Review of Systems General: No Chills, No Night Sweats; Fatigue; No Malaise, No Appetite, No Other HEENT: No Head Aches, No Visual Changes, No Eye Pain, No Ear Pain, No Dysphasia, No Sinus Congestion, No Post Nasal Drip, No Sore Throat, No Other Pulmonary: Dyspnea; No Cough, No Pleuritic Chest Pain, No Other Cardiovascular: No: Chest Pain, Palpitations, Orthopnea, Paroxysmal Noc. Dyspnea, Edema, Lt Headedness, Other Focused Exam Lactate Level 05/26/21 01:30: Lactic Acid Level 2.12*H 05/26/21 06:00: Lactic Acid Level 0.67 Time of Focused Exam: 03:15 Objective-Cardiology Exam Last Set of Vital Signs Vital Signs 05/26/21 05/27/21 05/27/21 05:17 08:00 08:42 Temp 37.3 Pulse 85 Resp 25 B/P (MAP) 137/68 (91) Pulse Ox 96 O2 Delivery Room Air FiO2 21 I&O Intake and Output 05/27/21 00:00 Intake Total 4300 ml Output Total 610 ml Balance 3690 ml Intake Oral 540 ml IV Total 3760 ml Output Urine Total 610 ml Daily Weight Change Yes, Greater than 33 lbs General: Alert, Oriented X3, Cooperative HEENT: Atraumatic, PERRLA Neck: Supple, No JVD, No Thyromegaly Lungs: Normal Air Movement, Other (Bilateral rhonchi) Heart: Regular Rate, Normal S1, Normal S2, No Murmurs Abdomen: Normal Bowel Sounds, Soft, No Tenderness, No Hepatosplenomegaly, No Masses Extremities: No Clubbing, No Cyanosis, Normal Pulses, No Tenderness/Swelling, Other (Peripheral edema) Skin: No Rashes, No Breakdown, No Significant Lesion Neuro: Normal Gait, Normal Speech, Strength at 5/5 X4 Ext, Normal Tone, Sensation Intact Psych/Mental Status: Mental Status NL, Mood NL Results Lab Laboratory Tests 05/26/21 14:18 05/26/21 20:17 05/27/21 03:04 A/P-Cardiology Admission Diagnosis Acute respiratory failure Acute renal failure Pneumonia Anemia Assessment/Plan Status post acute respiratory failure, improving, feeling better today. Continue to monitor, managed by primary care team Sinus tachycardia, better at this time, continue to monitor on telemetry Acute on chronic renal insufficiency, continue to monitor renal function Severe anemia, receiving blood transfusion, monitor H&H. Acute exacerbation of COPD. YUE PAL MD May 27, 2021 10:31
[2021-05-27] MEDS: LOSARTAN 25 MG (COZAAR) TAB PO SCH (12:02)
[2021-05-27] MEDS ORDERED: MIRTAZAPINE 15 MG (REMERON) TAB PO SCH (21:00)
[2021-05-27] MEDS ORDERED: GABAPENTIN 100 MG (NEURONTIN) CAP PO SCH (21:00)
[2021-05-28] VITALS: BP_SYST 130; BP_DIAS 5; BP_DIAS 75
[2021-05-28 04:06] VITALS: BP 135/72
[2021-05-28 05:38] LABS: HEMATOCRIT 31 % (35-52); HEMOGLOBIN 9.2 g/dL (11.5-16.0); MEAN CORPUSCULAR HEMOGLOBIN 31 pg (25-34); MEAN CORPUSCULAR HGB CONC 29 g/dL (32-36); MEAN CORPUSCULAR VOLUME 104 fL (80-99); MEAN PLATELET VOLUME 11.1 fL (9.0-12.2); PLATELET COUNT 180 10^3/uL (130-400); WHITE BLOOD COUNT 8.1 10^3/uL (4.3-11.0)
[2021-05-28 05:58] LABS: POTASSIUM 4.4 MMOL/L (3.6-5.0)
[2021-05-28 05:59] LABS: CALCIUM 7.6 MG/DL (8.5-10.1)
[2021-05-28] MEDS ORDERED: POTASSIUM CL 10MEQ/50ML IVPB 50 ML IV SCH (06:00)
[2021-05-28] MEDS ORDERED: KCL 20 MEQ TAB (K-DUR) PO SCH (06:00)
[2021-05-28] MEDS ORDERED: MAGNESIUM 1 GM/100 ML IVPB 100 ML IV SCH (06:00)
[2021-05-28 06:04] LABS: CREATININE SERUM 2.35 MG/DL (0.60-1.30)
[2021-05-28] MEDS: inSUlin ASPART (NovoLOG) 1 UNIT/0.01 ML (CHARGE PER UNIT) SC SCH (06:25)
[2021-05-28] MEDS: cefTRIAXone 1,000 MG in WATER (STERILE) FOR INJECTION 10 ML IV SCH (06:26)
--- NOTE | 2021-05-28 07:07 | Diagnostic Imaging Report ---
EXAMINATION: Chest 1 view HISTORY: Pneumonia COMPARISON: 05/27/2021 FINDINGS: Stable mild enlargement of the cardiac silhouette. Minimal interstitial opacities in the right lung base. No pleural effusion or pneumothorax. The osseous structures are intact. IMPRESSION: 1. Minimal interstitial opacities in the right lung base which could be secondary to atelectasis, edema, or atypical infection in the appropriate clinical setting. Dictated by: Dictated on workstation # [id number]
[2021-05-28 07:48] VITALS: BP 153/67
[2021-05-28] MEDS: LACTOBACILLUS ACIDOPHILUS (PROBIOTIC) CAPSULE PO SCH (09:25)
[2021-05-28] MEDS: PANTOPRAZOLE 20 MG TABLET (PROTONIX) PO SCH (09:25)
[2021-05-28] MEDS: LOSARTAN 25 MG (COZAAR) TAB PO SCH (09:25)
--- NOTE | 2021-05-28 09:30 | Discharge Summary ---
Diagnosis/Chief Complaint Date of Admission May 26, 2021 at 03:15 Date of Discharge Discharge Date: May 28, 2021 Discharge Time: 09:29 Admission Diagnosis SEPSIS WITH ANEMIA AND ACUTE ON CHRONIC RENAL FAILURE Primary Care Arianna Ramos DO Discharge Diagnosis SEPSIS LEUKOCYTOSIS GLUTEAL ABSCESS ACUTE ON CHRONIC RENAL FAILURE END STAGE CHRONIC HYPERTENSION DIABETES MELLITUS 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 PERIPHERAL NEUROPATHY HYPERLIPIDEMIA HYPOTHYROIDISM INSOMNIA CONSTIPATION/DIARRHEA HYPOCALCEMIA HYPOMAGNESEMIA SEPSIS WITH LEUKOCYTOSIS - GLUTEAL ABSCESS - CULTURE OF WOUND OBTAINED, CONTINUE ZOSYN ACUTE ON CHRONIC RENAL FAILURE END STAGE - SUPPORTIVE CARE - RENAL DOSING OF MEDICATION - PT IS TO SEE SURGEON IN THE NEXT TWO WEEKS FOR FISTULA EVALUATION CHRONIC HYPERTENSION - HOLD MEDS FOR NOW DUE TO HYPOTENSION FROM SEPSIS, MONITOR PRESSURES CLOSELY, WILL CONSIDER RESUMING MEDS PENDING BP CHANGES. DIABETES MELLITUS - MONITOR FSBS - DIABETIC DIET - CHECK HGBA1C 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 CHRONIC DISEASES - CHECK OCCULT STOOLS - IMPROVING, H/H 8.8 AND 30 TODAY PERIPHERAL NEUROPATHY - RESUMED GABAPENTIN HYPERLIPIDEMIA - HOLD HOME MED TODAY- CONSIDER RESTARTING LATER ONCE SEPSIS IMPROVES HYPOTHYROIDISM - RESUME HOME REGIMEN, CHECK LABS INSOMNIA - RESUMED MIRTAZEPINE CONSTIPATION/DIARRHEA -ADVISED PT TO TAKE LOW DOSE MIRALAX DAILY UPON D/C TO TRY TO SOFTEN STOOLS. ADVISED NOT TO TAKE FULL DOSE THIS MAY CAUSE DIARRHEA. HYPOCALCEMIA -WILL CONTINUE TO MONITOR HYPOMAGNESEMIA -GIVE ONE DOSE MAG SULFATE 1G IV TRANSFER FROM ICU TO 4TH FLOOR DVT PROPHYLAXIS WITH SCD'S AND LOVENOX (WILL STOP LOVENOX IF HGB DROPS FURTHER OR IF OCCULT STOOL IS POSITIVE) GI PROPHLYAXIS WITH PPI AND PROBIOTIC Discharge Summary Discharge Physical Exam Allergies: Coded Allergies: No Known Allergies (Verified Allergy, Unknown, 03/06/21) adhesive tape (Unverified Adverse Reaction, Unknown, 11/19/17) Vitals & I&Os Vital Signs Date Time Temp Pulse Resp B/P (MAP) Pulse Ox O2 Delivery O2 Flow Rate FiO2 05/28/21 07:48 36.5 91 18 153/67 (95) 95 Room Air 05/26/21 05:17 21 Hospital Course Labs (last 24 hrs) Laboratory Tests 05/27/21 11:05: Glucometer 96 05/27/21 15:54: Glucometer 97 05/27/21 20:07: Glucometer 116H 05/28/21 05:29: White Blood Count 8.1, Red Blood Count 3.00L, Hemoglobin 9.2L, Hematocrit 31L, Mean Corpuscular Volume 104H, Mean Corpuscular Hemoglobin 31, Mean Corpuscular Hemoglobin Concent 29L, Red Cell Distribution Width 17.0H, Platelet Count 180, Mean Platelet Volume 11.1, Sodium Level 140, Potassium Level 4.4, Chloride Level 119H, Carbon Dioxide Level 12L, Anion Gap 9, Blood Urea Nitrogen 27H, Creatinine 2.35H, Estimat Glomerular Filtration Rate 21, BUN/Creatinine Ratio 11, Glucose L evel 114H, Calcium Level 7.6L Microbiology 05/26/21 Gram Stain - Final, Resulted 05/26/21 Wound Culture - Preliminary, Resulted Mixed Bacterial [place] With 05/26/21 MRSA Screen - Final, Complete MRSA not isolated 05/26/21 Urine Culture - Preliminary, Resulted Strep anginosus 05/26/21 Blood Culture - Preliminary, Resulted No growth Patient resulted labs reviewed. Pending Labs Laboratory Tests 05/28/21 05:29: White Blood Count 8.1, Red Blood Count 3.00, Hemoglobin 9.2, Hematocrit 31, Mean Corpuscular Volume 104, Mean Corpuscular Hemoglobin 31, Mean Corpuscular Hemoglobin Concent 29, Red Cell Distribution Width 17.0, Platelet Count 180, Mean Platelet Volume 11.1, Sodium Level 140, Potassium Level 4.4, Chloride Level 119, Carbon Dioxide Level 12, Anion Gap 9, Blood Urea Nitrogen 27, Creatinine 2.35, Estimat Glomerular Filtration Rate 21, BUN/Creatinine Ratio 11, Glucose Level 114, Calcium Level 7.6 Discharge Home Medications: Active Scripts Active Augmentin 875-125 Tablet (Amoxicillin/Potassium Clav) 1 Each Tablet 1 Each PO BID Acidophilus-Pectin Capsule (Lactobacillus Acidophilus/Pect) 1 Each Capsule 2 Each PO TIDWM Doxycycline Hyclate 100 Mg Capsule 100 Mg PO BID Dermoplast Pain Relieving [place] (Benzocaine/Menthol) 78 Gm Aerosol 1 Ea TP TID PRN Reported Ozempic (Semaglutide) 0.25 Mg/0.2 Ml Pen.injctr Glipizide ER (Glipizide) 5 Mg Tab.er.24 5 Mg PO DAILY Losartan Potassium 25 Mg Tablet 25 Mg PO DAILY Furosemide 40 Mg Tablet 40 Mg PO UD TAKE 1 TAB EVERY DAY OR EVERYOTHER DAY NEEDED FOR SWELILNG Restasis (Cyclosporine) 1 Each Droperette 1 Drop OU DAILY Xalatan (Latanoprost) 2.5 Ml Drops 1 Drop OU HS Tizanidine HCl 4 Mg Tablet 4 Mg PO BID PRN Atorvastatin Calcium 20 Mg Tablet 20 Mg PO DAILY Gabapentin 100 Mg Capsule 200 Mg PO HS TAKES 2 (100MG) CAPS Levothyroxine Sodium 175 Mcg Tablet 175 Mcg PO DAILY Mirtazapine 15 Mg Tablet 15 Mg PO HS TAKES 1-2 TABS Vitamin D2 (Ergocalciferol (Vitamin D2)) 1,250 Mcg Capsule 1,250 Mcg PO SUN Instructions to patient/family Please see electronic discharge instructions given to patient. VASILE VAIL MED STUDENT May 28, 2021 09:30
[2021-05-28] MEDS ORDERED: LACT1CAP7 PO (09:33)
[2021-05-28] MEDS ORDERED: AMOX-358 PO (09:33)
--- NOTE | 2021-05-28 09:34 | Discharge Inst-Simple/Standard ---
Discharge Inst-Standard Reconcile Patient Problems Problems Reviewed?: Yes Discharge Medications New, Converted or Re-Newed RX: Transmitted to Pharmacy Patient Instructions/Follow Up Plan of Care/Instructions/FU: 1 wk [facility] Activity as Tolerated: Yes Discharge Diet: ADA Diet Health Concerns: diabetes renal failure abscess Return to The Hospital For: any concern for worsening infection, lifethreatening illness or injury Medication List: Active Scripts Active Augmentin 875-125 Tablet (Amoxicillin/Potassium Clav) 1 Each Tablet 1 Each PO BID Acidophilus-Pectin Capsule (Lactobacillus Acidophilus/Pect) 1 Each Capsule 2 Each PO TIDWM Doxycycline Hyclate 100 Mg Capsule 100 Mg PO BID Dermoplast Pain Relieving Tensed (Benzocaine/Menthol) 78 Gm Aerosol 1 Ea TP TID PRN Reported Ozempic (Semaglutide) 0.25 Mg/0.2 Ml Pen.injctr Glipizide ER (Glipizide) 5 Mg Tab.er.24 5 Mg PO DAILY Losartan Potassium 25 Mg Tablet 25 Mg PO DAILY Furosemide 40 Mg Tablet 40 Mg PO UD TAKE 1 TAB EVERY DAY OR EVERYOTHER DAY NEEDED FOR SWELILNG Restasis (Cyclosporine) 1 Each Droperette 1 Drop OU DAILY Xalatan (Latanoprost) 2.5 Ml Drops 1 Drop OU HS Tizanidine HCl 4 Mg Tablet 4 Mg PO BID PRN Atorvastatin Calcium 20 Mg Tablet 20 Mg PO DAILY Gabapentin 100 Mg Capsule 200 Mg PO HS TAKES 2 (100MG) CAPS Levothyroxine Sodium 175 Mcg Tablet 175 Mcg PO DAILY Mirtazapine 15 Mg Tablet 15 Mg PO HS TAKES 1-2 TABS Vitamin D2 (Ergocalciferol (Vitamin D2)) 1,250 Mcg Capsule 1,250 Mcg PO SUN Lab results: Laboratory Tests Test 05/27/21 11:05 05/27/21 15:54 05/27/21 20:07 05/28/21 05:29 Range/Units Glucometer 96 97 116 H 70-110 MG/DL White Blood Count 8.1 4.3-11.0 10^3/uL Red Blood Count 3.00 L 3.80-5.11 10^6/uL Hemoglobin 9.2 L 11.5-16.0 g/dL Hematocrit 31 L 35-52 % Mean Corpuscular Volume 104 H 80-99 fL Mean Corpuscular Hemoglobin 31 25-34 pg Mean Corpuscular Hemoglobin Concent 29 L 32-36 g/dL Red Cell Distribution Width 17.0 H 10.0-14.5 % Platelet Count 180 130-400 10^3/uL Mean Platelet Volume 11.1 9.0-12.2 fL Sodium Level 140 135-145 MMOL/L Potassium Level 4.4 3.6-5.0 MMOL/L Chloride Level 119 H 98-107 MMOL/L Carbon Dioxide Level 12 L 21-32 MMOL/L Anion Gap 9 5-14 MMOL/L Blood Urea Nitrogen 27 H 7-18 MG/DL Creatinine 2.35 H 0.60-1.30 MG/DL Estimat Glomerular Filtration Rate 21 BUN/Creatinine Ratio 11 Glucose Level 114 H 70-105 MG/DL Calcium Level 7.6 L 8.5-10.1 MG/DL My orders: Orders - EBONY HELTON MD Atorvastatin Tablet (Lipitor Tablet) (05/28/21 09:00) Tizanidine Tablet (Zanaflex Tablet) (05/27/21 10:30) Cpoe Transfer Order Process (05/27/21 10:29) Losartan Tablet (Cozaar Tablet) (05/27/21 11:15) Transfer - Bed/Room/Location (05/27/21 11:14) Catheter(Urinary) Discontinue (05/27/21 18:02) Attending Discharge Inpt/Inobs (05/28/21 09:31) EBONY HELTON MD May 28, 2021 09:34
[2021-05-28] MEDS: AZITHROMYCIN INJECTION 500 MG in NS (IVPB) 250 ML IV SCH (09:39)
[2021-05-28] MEDS: ENOXAPARIN 30 MG/0.3 ML (LOVENOX) SYR SC SCH (09:39)
--- NOTE | 2021-05-28 10:14 | Cardiology Progress Note ---
Subjective Date Seen by Provider: May 28, 2021 Time Seen by Provider: 10:10 Subjective/Events-last exam Patient is feeling well, no new complaint, going home today Review of Systems General: No Chills, No Night Sweats, No Fatigue, No Malaise, No Appetite, No Other HEENT: No Head Aches, No Visual Changes, No Eye Pain, No Ear Pain, No Dysphasia, No Sinus Congestion, No Post Nasal Drip, No Sore Throat, No Other Pulmonary: Dyspnea; No Cough, No Pleuritic Chest Pain, No Other Cardiovascular: No: Chest Pain, Palpitations, Orthopnea, Paroxysmal Noc. Dyspnea, Edema, Lt Headedness, Other Focused Exam Lactate Level 05/26/21 01:30: Lactic Acid Level 2.12*H 05/26/21 06:00: Lactic Acid Level 0.67 Time of Focused Exam: 03:15 Objective-Cardiology Exam Last Set of Vital Signs Vital Signs 05/26/21 05/28/21 05:17 07:48 Temp 36.5 Pulse 91 Resp 18 B/P (MAP) 153/67 (95) Pulse Ox 95 O2 Delivery Room Air FiO2 21 I&O Intake and Output 05/28/21 00:00 Intake Total 3457 ml Output Total 2150 ml Balance 1307 ml Intake Oral 2002 ml IV Total 1455 ml Output Urine Total 2150 ml General: Alert, Oriented X3, Cooperative HEENT: Atraumatic, PERRLA Neck: Supple, No JVD, No Thyromegaly Lungs: Clear to Auscultation, Normal Air Movement Heart: Regular Rate, Normal S1, Normal S2, No Murmurs Abdomen: Normal Bowel Sounds, Soft, No Tenderness, No Hepatosplenomegaly, No Masses Extremities: No Clubbing, No Cyanosis, Normal Pulses, No Tenderness/Swelling, Other (Peripheral edema) Skin: No Rashes, No Breakdown, No Significant Lesion Neuro: Normal Gait, Normal Speech, Strength at 5/5 X4 Ext, Normal Tone, Sensation Intact Psych/Mental Status: Mental Status NL, Mood NL Results Lab Laboratory Tests 05/28/21 05:29 A/P-Cardiology Admission Diagnosis Acute respiratory failure Acute renal failure Pneumonia Anemia Assessment/Plan Status post acute respiratory failure, improving, feeling better today. Continue to monitor, managed by primary care team Sinus tachycardia, better at this time, continue to monitor on telemetry Acute on chronic renal insufficiency, continue to monitor renal function Anemia, better, followed by primary care physician Acute exacerbation of COPD. YUE PAL MD May 28, 2021 10:14
--- NOTE | 2021-05-30 | Physician Query Clarification ---
PQ-Conflicting Diagnosis Admission/Discharge Admission Date: May 26, 2021 at 03:15 Discharge Date: May 28, 2021 at 12:00 The medical record reflects the following clinical scenario: History/Risk Factors: COPD, tachycardia Clinical Findings: per Annabelle consult, transferred to ICU for respiratory failure Treatment: Oxygen Question: Do you agree with the impression of the Acute respiratory failure per Dr. Alanis. Please document a response in Progress Note or Discharge Summary. 1. Yes 2. No 3. Other, with explanation of clinical findings 4. Clinically undetermined, no explanation for clinical findings. PHYSICIAN RESPONSE Do you agree w/Consulting Dx?: Yes Please remember a lack of response to the above will prompt a phone page by CDI/Coding staff. In responding to this query, please exercise your independent professional judgment. The purpose of this communication is to more accurately reflect the complexity of your patients condition. The fact that a question is asked does not imply that any particular answer is desired or expected. Thank you for your timely response to this clarification. Requestors name: Kathi THIS PHYSICIAN QUERY FORM IS A PERMANENT PART OF THE MEDICAL RECORD KATHI JEROME May 30, 2021 00:00 EBONY HELTON MD Jun 04, 2021 19:27
--- NOTE | 2021-05-30 00:04 | Physician Query Clarification ---
PQ-Uncertain Diagnosis Admission/Discharge Admission Date: May 26, 2021 at 03:15 Discharge Date: May 28, 2021 at 12:00 The medical record reflects the following clinical scenario: History/Risk Factors: Chills, fever, tachycardia Clinical Findings: LLL infiltrate on xray Treatment: Rocephin, Zithromax Question: Is pneumonia a clinically valid diagnosis? pneumonia was documented in the ED record and Annabelle consult with no further documentation in the medical record. Please document a response in Progress Note or Discharge Summary. 1. Yes, clinically valid, condition resolved. 2. No, condition ruled out. 3. Other, with explanation of clinical findings. 4. Undetermined, no explanation for clinical findings. PHYSICIAN RESPONSE Diagnosis clinically valid: No, conditon ruled out Please remember a lack of response to the above will prompt a phone page by CDI/Coding staff. In responding to this query, please exercise your independent professional judgment. The purpose of this communication is to more accurately reflect the complexity of your patients condition. The fact that a question is asked does not imply that any particular answer is desired or expected. Thank you for your timely response to this clarification. Requestors name: [ ] Phone # [ ] THIS PHYSICIAN QUERY FORM IS A PERMANENT PART OF THE MEDICAL RECORD SAVANNA JEROME May 30, 2021 00:04 EBONY HELTON MD Jun 04, 2021 19:28
== END 2021-05-28 12:00 | disposition home or self-care (01) | DRG 871 ==
LOC: EDUNIT# 01:23 → ER 01:24 → CSD 03:15 → ICU 07:05 → 4TH 05-27 11:14
PROVIDERS: ADMIT Family Medicine; ATTEND Family Medicine
DX: A41.9 Sepsis, unspecified organism (principal); N18.6 End stage renal disease; J96.00 Acute respiratory failure, unspecified whether with hypoxia or hypercapnia; I12.0 Hypertensive chronic kidney disease with stage 5 chronic kidney disease or end stage renal disease; L02.31 Cutaneous abscess of buttock; N17.9 Acute kidney failure, unspecified; Z68.41 Body mass index [BMI] 40.0-44.9, adult; E11.22 Type 2 diabetes mellitus with diabetic chronic kidney disease; D63.1 Anemia in chronic kidney disease; E11.42 Type 2 diabetes mellitus with diabetic polyneuropathy; E78.5 Hyperlipidemia, unspecified; E89.0 Postprocedural hypothyroidism; G47.00 Insomnia, unspecified; F41.9 Anxiety disorder, unspecified; F32.9 Major depressive disorder, single episode, unspecified; E78.00 Pure hypercholesterolemia, unspecified; E66.01 Morbid (severe) obesity due to excess calories; R00.0 Tachycardia, unspecified; K59.00 Constipation, unspecified; R19.7 Diarrhea, unspecified; E83.51 Hypocalcemia; E83.42 Hypomagnesemia; Z79.890 Hormone replacement therapy; Z98.84 Bariatric surgery status; Z79.899 Other long term (current) drug therapy; Z20.822 Contact with and (suspected) exposure to COVID-19; Z85.850 Personal history of malignant neoplasm of thyroid
CPT/HCPCS: 36415; 51702; 71045; 80048; 80053; 81000; 82947; 83036; 83605; 83615; 83735; 84100; 84145; 84439; 84443; 85007; 85014; 85018; 85025; 85027; 85379; 85610; 85652; 85730; 86141; 86850; 86900; 86901; 86920; 87040; 87070; 87077; 87081; 87088; 87205; 87636; 93005; 93041; 96361; 96365; 96372; 96375

== ENCOUNTER 2021-10-11 22:24 | Observation (INO) | payer MEDICARE ==
[~2021-10-11] VITALS: Ht 155 cm; Wt 109.0 kg
[~2021-10-11 22:24] MED LIST changes: +AMOX-358 PO; -DOXY100C2 PO; +DOXY100C5 PO; +GLIP5TAB26 PO; +LACT1CAP7 PO; +LOSA25TA41 PO; +SEMA0.25; +TIZA-186 PO; -TIZA4TAB4 PO
--- NOTE | 2021-10-11 22:37 | ED Psychosocial ---
General Stated Complaint: PANIC ATTACK Source: patient Exam Limitations: no limitations History of Present Illness Date Seen by Provider: Oct 11, 2021 Time Seen by Provider: 22:19 Initial Comments Patient to the ER by ambulance from home chief complaint she had a panic attack. She does not have anything for anxiety outside of hydroxyzine. She took 2 tabl ets of that plus the tizanidine and still was not able to calm down her sleep. She says her anxiety attack is possible the time she got here. She is having problems with sleep. She is on BuSpar, Remeron and recently had her Remeron elevated dose by Dr. RAMOS without significant effect on her insomnia. 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 She follows with nephrology at [facility]. Home health nurse hospitalist to draw blood for her today but failed to get it. She is was to get blood done by her union laborer to find out why still having nausea. She is not having any nausea now. She has been anemic and was in the hospital getting a couple units of blood last week at [facility]. She denies chest pain or shortness of air. The patient started Lasix 4 days ago and has lost over 22 pounds. She feels very dehydrated. Allergies and Home Medications Allergies Coded Allergies: No Known Allergies (Verified Allergy, Unknown, 03/06/21) adhesive tape (Unverified Adverse Reaction, Unknown, 11/19/17) Patient Home Medication List Home Medication List Reviewed: Yes Amoxicillin/Potassium Clav (Augmentin 875-125 Tablet) 1 Each Tablet, 1 EACH PO BID Prescribed by: EBONY HELTON on 05/28/21 0933 Atorvastatin Calcium (Atorvastatin Calcium) 20 Mg Tablet, 20 MG PO DAILY, (Reported) Entered as Reported by: KEVIN LAW on 03/06/21 1416 Benzocaine/Menthol (Dermoplast Pain Relieving [place]) 78 Gm Aerosol, 1 EA TP TID PRN for pain Prescribed by: JOSE RENDON on 03/09/21 0837 Cyclosporine (Restasis) 1 Each Droperette, 1 DROP OU DAILY, (Reported) Entered as Reported by: KEVIN LAW on 03/06/21 1416 Ergocalciferol (Vitamin D2) (Vitamin D2) 1,250 Mcg Capsule, 1,250 MCG PO SUN, (Reported) Entered as Reported by: KEVIN LAW on 03/06/211415 Furosemide (Furosemide) 40 Mg Tablet, 40 MG PO UD, (Reported) Entered as Reported by: SARKIS CHRISTINA on 05/27/21 0850 Gabapentin (Gabapentin) 100 Mg Capsule, 200 MG PO HS, (Reported) Entered as Reported by: KEVIN LAW on 03/06/211415 Glipizide (Glipizide ER) 5 Mg Tab.er.24, 5 MG PO DAILY, (Reported) Entered as Reported by: SARKIS CHRISTINA on 05/27/21 0850 Lactobacillus Acidophilus/Pect (Acidophilus-Pectin Capsule) 1 Each Capsule, 2 EACH PO TIDWM Prescribed by: EBONY HELTON on 05/28/21 0933 Latanoprost (Xalatan) 2.5 Ml Drops, 1 DROP OU HS, (Reported) Entered as Reported by: KEVIN LAW on 03/06/211415 Levothyroxine Sodium (Levothyroxine Sodium) 175 Mcg Tablet, 175 MCG PO DAILY, (Reported) Entered as Reported by: KEVIN LAW on 03/06/211415 Losartan Potassium (Losartan Potassium) 25 Mg Tablet, 25 MG PO DAILY, (Reported) Entered as Reported by: SARKIS CHRISTINA on 05/27/21 0850 Mirtazapine (Mirtazapine) 15 Mg Tablet, 15 MG PO HS, (Reported) Entered as Reported by: KEVIN LAW on 03/06/211415 Semaglutide (Ozempic) 0.25 Mg/0.2 Ml Pen.injctr, (Reported) Entered as Reported by: SARKIS CHRISTINA on 05/27/21 0850 Tizanidine HCl (Tizanidine HCl) 4 Mg Tablet, 4 MG PO BID PRN for MUSCLE SPASMS, (Reported) Entered as Reported by: KEVIN LAW on 03/06/211415 Review of Systems Constitutional: No chills, No diaphoresis EENTM: No ear discharge, No ear pain Respiratory: No cough, No short of breath Cardiovascular: No chest pain, No edema Gastrointestinal: No abdominal pain, No nausea; vomiting Genitourinary: No discharge, No dysuria All Other Systems Reviewed Negative Unless Noted: Yes Past Rkbqful-Aggwqh-Cajaie Hx Patient Social History Tobacco Use?: No Immunizations Up To Date Tetanus Booster (TDap): Less than 5yrs PED Vaccines UTD: Yes Seasonal Allergies Seasonal Allergies: No Past Medical History Surgery/Hospitalization HX: THYROIDECTOMY 2009 FLEXIBLE SIGMOIDOSCOPY 10/2013 GASTRIC BYPASS CHOLECYSTECTOMY MULTIPLE I&D'S OF ABSCESSES, INCLUDING PILONIDAL CYST/ABSCESS MULTIPLE DEBRIDEMENTS OF NECROTIZING FASCITIS Surgeries: Yes (PILONIDAL CYST/ABSCESS;MULTIPLE DEBRIDEMENTS FOR NECROTIZING FASCITIS; ) Abdominal, Gallbladder, Thyroidectomy Respiratory: No Currently Using CPAP: No Currently Using BIPAP: No Cardiac: Yes High Cholesterol, Hypertension Neurological: Yes Neuropathy Reproductive Disorders: No Female Reproductive Disorders: Denies 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 HIV/AIDS: No Genitourinary: Yes (STAGE 4 RENAL FAILURE--NO DIALYSIS) Renal Failure Gastrointestinal: Yes (GASTRIC BYPASS) Musculoskeletal: Yes (CHRONIC GENERALIZED PAIN ) Arthritis, Chronic Back Pain Endocrine: Yes (THYROID CANCER;MORBID OBESITY) Hypothyroidsim, Diabetes, Non-Insulin dep HEENT: No Loss of Vision: Denies Hearing Impairment: Denies Cancer: Yes Thyroid Did You Recieve Any Treatments: Yes What Type of Treatment Did You: Surgical Intervention Psychosocial: Yes Anxiety, Depression Integumentary: Yes (HX- NECROTIZING FASCITIS IN 1989;PILONIDAL CYST/ABSCESS;BARTHOLIN'S ABSCESS) Blood Disorders: No Family Medical History Heart Disease, Diabetes, Hypertension, Other Conditions/Hx PAST SURGICAL /PROCEDURAL HISTORY: -FLEXIBLE SIGMOIDOSCOPY 10/2013 -GASTRIC BYPASS -THYROIDECTOMY 2009 -CHOLECYSTECTOMY - PANICULECTOMY Physical Exam Capillary Refill : Height, Weight, BMI Height: 5'1.00" Weight: 298lbs. 2.0oz. 135.370682pg; 43.24 BMI Method:Stated General Appearance: WD/WN, no apparent distress HEENT: PERRL/EOMI, pharynx normal Neck: full range of motion, normal inspection Respiratory: lungs clear, normal breath sounds, no respiratory distress, no accessory muscle use Cardiovascular: normal peripheral pulses, regular rate, rhythm Gastrointestinal: non tender, soft Neurologic/Psychiatric: alert, normal mood/affect, oriented x 3 Skin: warm/dry; No diaphoresis; pallor Progress/Results/Core Measures Results/Orders Lab Results Laboratory Tests Test 10/11/21 22:27 Range/Units White Blood Count 8.5 4.3-11.0 10^3/uL Red Blood Count 2.80 L 3.80-5.11 10^6/uL Hemoglobin 8.6 L 11.5-16.0 g/dL Hematocrit 28 L 35-52 % Mean Corpuscular Volume 101 H 80-99 fL Mean Corpuscular Hemoglobin 31 25-34 pg Mean Corpuscular Hemoglobin Concent 30 L 32-36 g/dL Red Cell Distribution Width 18.7 H 10.0-14.5 % Platelet Count 233 130-400 10^3/uL Mean Platelet Volume 12.2 9.0-12.2 fL Immature Granulocyte % (Auto) 1 % Neutrophils (%) (Auto) 75 42-75 % Lymphocytes (%) (Auto) 17 12-44 % Monocytes (%) (Auto) 6 0-12 % Eosinophils (%) (Auto) 1 0-10 % Basophils (%) (Auto) 0 0-10 % Neutrophils # (Auto) 6.4 1.8-7.8 10^3/uL Lymphocytes # (Auto) 1.4 1.0-4.0 10^3/uL Monocytes # (Auto) 0.5 0.0-1.0 10^3/uL Eosinophils # (Auto) 0.1 0.0-0.3 10^3/uL Basophils # (Auto) 0.0 0.0-0.1 10^3/uL Immature Granulocyte # (Auto) 0.0 0.0-0.1 10^3/uL Sodium Level 142 135-145 MMOL/L Potassium Level 3.0 L 3.6-5.0 MMOL/L Chloride Level 104 98-107 MMOL/L Carbon Dioxide Level 22 21-32 MMOL/L Anion Gap 16 H 5-14 MMOL/L Blood Urea Nitrogen 48 H 7-18 MG/DL Creatinine 3.45 H 0.60-1.30 MG/DL Estimat Glomerular Filtration Rate 13 BUN/Creatinine Ratio 14 Glucose Level 197 H 70-105 MG/DL Calcium Level 5.5 *L 8.5-10.1 MG/DL Corrected Calcium 6.7 L 8.5-10.1 MG/DL Phosphorus Level 4.9 H 2.3-4.7 MG/DL Magnesium Level 1.5 L 1.6-2.4 MG/DL Total Bilirubin 0.5 0.1-1.0 MG/DL Aspartate Amino Transf (AST/SGOT) 14 5-34 U/L Alanine Aminotransferase (ALT/SGPT) 10 0-55 U/L Alkaline Phosphatase 92 40-136 U/L C-Reactive Protein High Sensitivity 3.62 H 0.00-0.50 MG/DL Total Protein 6.0 L 6.4-8.2 GM/DL Albumin 2.5 L 3.2-4.5 GM/DL My Orders Orders - DARYN OLIVIER Cbc With Automated Diff (10/11/21 22:33) Magnesium (10/11/21 22:33) Comprehensive Metabolic Panel (10/11/21 22:33) Hs C Reactive Protein (10/11/21 22:33) Ed Iv/Invasive Line Start (10/11/21 22:41) Ns Iv 500 Ml (Sodium Chloride 0.9%) (10/11/21 22:45) Ed Iv/Invasive Line Start (10/12/21 00:58) Ns Iv 500 Ml (Sodium Chloride 0.9%) (10/12/21 01:00) Magnesium 1 Gm/100 Ml Ivpb (Magnesium Tran (10/12/21 01:15) Potassium Cl 10meq/50ml Ivpb (Kcl 10 Meq (10/12/21 01:15) Calcium Gluconate 10% Inj (Calcium Glu (10/12/21 01:15) Phosphorus (10/12/21 01:06) Medications Given in ED Current Medications Medications Dose Ordered Sig/Tiffany Route Start Time Stop Time Status Last Admin Dose Admin Calcium Gluconate 4.65 meq ONCE ONCE IV 10/12/21 01:15 10/12/21 01:16 DC 10/12/21 01:23 4.65 MEQ Magnesium Sulfate/ Dextrose 100 ml @ 100 mls/hr ONCE ONCE IV 10/12/21 01:15 10/12/21 02:15 DC 10/12/21 01:31 100 MLS/HR Potassium Chloride 50 ml @ 50 mls/hr ONCE ONCE IV 10/12/21 01:15 10/12/21 02:15 DC 10/12/21 01:23 50 MLS/HR Sodium Chloride 500 ml @ 0 mls/hr Q0M ONCE IV 10/11/21 22:45 10/11/21 22:46 DC 10/11/21 23:05 0 MLS/HR Sodium Chloride 500 ml @ 0 mls/hr Q0M ONCE IV 10/12/21 01:00 10/12/21 01:01 DC 10/12/21 01:22 0 MLS/HR Progress Progress Note : Time: 22:36 Progress Note Patient's not having a panic attack now. We will try and draw labs to help her and her union laborer out. We will check her electrolytes. Check her for anemia as the need addressed. She is very pale appearing. We will provide her with a few Xanax that she can trial to help her get through her panic attacks and have her follow-up next week with Dr. Ramos to manage her anxiety and insomnia. Patient is to repeat blood pressure 70 systolic and followed by 85 systolic. 100 put an IV in her and initiate a 500 mL aliquot of saline. She does appear clinically to be dry with dry oral mucosa. She did recently start Lasix. Departure Communication (Admissions) Time/Spoke to Admitting Phy: 01:51 0110: Left Dr Ramos. 0150: Left 0220: Janet accepts patient. Impression Primary Impression: Dehydration Additional Impression: Electrolyte depletion Disposition: ADMITTED INPATIENT Condition: Stable Admissions Decision to Admit Reason: Admit from ER (General) Decision to Admit/Date: Oct 12, 2021 Time/Decision to Admit Time: 01:00 Departure-Patient Inst. Referrals: ROBINSON RAMOS DO (PCP/Family) Primary Care Physician DARYN OLIVIER Oct 11, 2021 22:37
[2021-10-11] MEDS ORDERED: NS IV 500 ML 500 ML IV ONE (22:45)
[2021-10-11 23:36] LABS: BASOPHILS % (AUTO) 0 % (0-10); EOSINOPHILS # (AUTO) 0.1 10^3/uL (0.0-0.3); EOSINOPHILS % (AUTO) 1 % (0-10); HEMATOCRIT 28 % (35-52); HEMOGLOBIN 8.6 g/dL (11.5-16.0); LYMPHOCYTES # (AUTO) 1.4 10^3/uL (1.0-4.0); LYMPHOCYTES % (AUTO) 17 % (12-44); MEAN CORPUSCULAR HEMOGLOBIN 31 pg (25-34); MEAN CORPUSCULAR HGB CONC 30 g/dL (32-36); MEAN CORPUSCULAR VOLUME 101 fL (80-99); MEAN PLATELET VOLUME 12.2 fL (9.0-12.2); MONOCYTES # (AUTO) 0.5 10^3/uL (0.0-1.0); MONOCYTES % (AUTO) 6 % (0-12); NEUTROPHILS # (AUTO) 6.4 10^3/uL (1.8-7.8); NEUTROPHILS % (AUTO) 75 % (42-75); PLATELET COUNT 233 10^3/uL (130-400); WHITE BLOOD COUNT 8.5 10^3/uL (4.3-11.0)
[2021-10-11 23:48] LABS: ALBUMIN 2.5 GM/DL (3.2-4.5)
[2021-10-11 23:52] LABS: BILIRUBIN,TOTAL 0.5 MG/DL (0.1-1.0)
[2021-10-11 23:54] LABS: CREATININE SERUM 3.45 MG/DL (0.60-1.30)
[2021-10-11 23:57] LABS: MAGNESIUM 1.5 MG/DL (1.6-2.4)
[2021-10-12 00:02] LABS: CALCIUM 5.5 MG/DL (8.5-10.1)
[2021-10-12] MEDS ORDERED: NS IV 500 ML 500 ML IV ONE (01:00)
[2021-10-12] MEDS ORDERED: MAGNESIUM 1 GM/100 ML IVPB 100 ML IV ONE (01:15)
[2021-10-12] MEDS ORDERED: POTASSIUM CL 10MEQ/50ML IVPB 50 ML IV ONE (01:15)
[2021-10-12] MEDS ORDERED: CALCIUM GLUC. 10% 4.65 MEQ/10 ML VIAL IV ONE (01:15)
[2021-10-12] MEDS ORDERED: ALPRAZolam 0.25 MG (XANAX) TAB PO ONE (02:45)
[2021-10-12 03:28] VITALS: BP 130/61
[2021-10-12] MEDS ORDERED: ACETAMINOPHEN 325 MG TABLET PO PRN (04:00)
[2021-10-12] MEDS ORDERED: POTASSIUM CHLORIDE INJ 40 MEQ in 1/2 NS IV SOLUTION 1,000 ML IV SCH (04:00)
[2021-10-12] MEDS ORDERED: POTASSIUM CHLORIDE INJ 40 MEQ in NS IV 1000 ML 1,000 ML IV SCH (04:49)
[2021-10-12] MEDS: NS W/KCL 40 MEQ/L 1,000 ML IV SCH ×2 (05:20→17:58)
[2021-10-12] MEDS: inSUlin ASPART (NovoLOG) 1 UNIT/0.01 ML (CHARGE PER UNIT) SC SCH ×4 (05:20→20:28)
[2021-10-12 08:20] VITALS: BP 106/67
[2021-10-12 10:40] LABS: CREATININE SERUM 3.34 MG/DL (0.60-1.30); MAGNESIUM 1.7 MG/DL (1.6-2.4); POTASSIUM 3.3 MMOL/L (3.6-5.0)
[2021-10-12 10:50] LABS: CALCIUM 5.8 MG/DL (8.5-10.1)
[2021-10-12 11:45] VITALS: BP 97/65
[2021-10-12] MEDS ORDERED: CALCIUM GLUCONATE 10% INJ 4.65 MEQ in NS (IVPB) 50 ML IV ONE (12:00)
[2021-10-12] MEDS ORDERED: KCL 20 MEQ TAB (K-DUR) PO NR (12:00)
[2021-10-12] MEDS: SODIUM BICARBONATE 650 MG TABLET (NON-FORMULARY) PO SCH ×2 (12:14→20:29)
[2021-10-12] MEDS: CALCIUM ACETATE 667 MG CAP (PHOSLO) PO SCH ×2 (12:14→17:58)
[2021-10-12] MEDS: ALPRAZolam 0.25 MG (XANAX) TAB PO PRN ×2 (14:52→21:06)
[2021-10-12 16:00] VITALS: BP 116/68
--- NOTE | 2021-10-12 16:11 | History & Physical-Hospitalist ---
History of Present Illness HPI/Chief Complaint Vivian Schulz is a 66 year old female with PMH HTN, T2DM, HLD, hypothyroidism, anxiety, depression, CKD 5, anemia of chronic disease, who presented with a panic attack. She says she is unable to describe it. She is not having chest pain. She felt short of breath and could not take a deep breath. She denies cough. .She denies fevers and chills. She has had nausea. She denies vomiting. She denies abdominal pain. She has not had diarrhea. She has some leg swelling. She was recently hospitalized in [place] due to fluid overload and was discharged on an increased dose of Lasix. She was then started on Metolazone. Adiel pascal feels like she is dehydrated now. She has started the process of having a fistula placed to begin hemodialysis. Source: patient Exam Limitations: no limitations Date Seen 10/12/21 Time Seen by a Provider: 10:10 Attending Physician Con Gonzales MD PCP Arianna Ramos DO Referring Physician Date of Admission Oct 12, 2021 at 02:30 Home Medications & Allergies Home Medications Reviewed patient Home Medication Reconciliation performed by pharmacy medication reconciliations pharmacy picking technician and/or nursing. Patients Allergies have been reviewed. Allergies Allergies Coded Allergies No Known Allergies (Verified Allergy, Unknown, 03/06/21) adhesive tape (Unverified Adverse Reaction, Unknown, 11/19/17) Past Abrrtop-Vfpwob-Nvlqdn Hx Patient Social History Tobacco Use?: Yes Smoking Status: Never a Smoker Smokeless Tobacco Frequency: Never a User Use of E-Cig and/or Vaping dev: No Substance use?: No Alcohol Use?: No Pt feels they are or have been: No Immunizations Up To Date Date of Influenza Vaccine: Jul 20, 2021 First/Initial COVID19 Vaccinat: JANUARY 2021 Second COVID19 Vaccination [place]: JANUARY 2021 Tetanus Booster (TDap): More Than 5 Years Hepatitis A: No Hepatitis B: No PED Vaccines UTD: Yes Date of Pneumonia Vaccine: Oct 20, 2009 Seasonal Allergies Seasonal Allergies: No Current Status status: No status: No Advance Directives: No Communicates: Verbally Primary Language: [place] Preferred Spoken Language: [place] Is interpretation needed?: No Sensory deficits: Vision impairment Past Medical History Surgeries: Abdominal, Gallbladder, Thyroidectomy Currently Using CPAP: No Currently Using BIPAP: No High Cholesterol, Hypertension 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: 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 HIV/AIDS: No Renal Failure Arthritis, Chronic Back Pain Hypothyroidsim, Diabetes, Non-Insulin dep Loss of Vision: Denies Hearing Impairment: Denies Thyroid Did You Recieve Any Treatments: Yes What Type of Treatment Did You: Surgical Intervention Anxiety, Depression Blood Disorders: No Family Medical History Heart Disease, Diabetes, Hypertension, Other Conditions/Hx PAST SURGICAL /PROCEDURAL HISTORY: -FLEXIBLE SIGMOIDOSCOPY 10/2013 -GASTRIC BYPASS -THYROIDECTOMY 2009 -CHOLECYSTECTOMY - PANICULECTOMY Review of Systems Constitutional: malaise EENTM: no symptoms reported Respiratory: no symptoms reported Cardiovascular: no symptoms reported Gastrointestinal: nausea Genitourinary: no symptoms reported Musculoskeletal: no symptoms reported Skin: no symptoms reported Psychiatric/Neurological: No Symptoms Reported Physical Exam Physical Exam Vital Signs Vital Signs - First Documented 10/11/21 22:28 Temp 36.1 Pulse 58 Resp 16 B/P (MAP) 85/54 (64) Pulse Ox 93 O2 Delivery Room Air Capillary Refill : Height, Weight, BMI Height: 5'1.00" Weight: 298lbs. 2.0oz. 135.269784eo; 45.36 BMI Method:Stated General Appearance: No Apparent Distress, Anxious, Obese HEENT: PERRL/EOMI, Pharynx Normal Neck: Normal Inspection, Supple Respiratory: Lungs Clear, Normal Breath Sounds, No Respiratory Distress Cardiovascular: Regular Rate, Rhythm, No Edema, No Murmur Gastrointestinal: Normal Bowel Sounds, Non Tender, Soft Extremity: Normal Inspection, Non Tender, No Pedal Edema Neurologic/Psychiatric: Alert, Oriented x3, Normal Mood/Affect Skin: Normal Color, Warm/Dry Results Results/Procedures Labs Laboratory Tests 10/11/21 22:27 10/12/21 10:04 Patient resulted labs reviewed. Imaging: Reviewed Imaging Report Assessment/Plan Admission Diagnosis Acute kidney injury superimposed on chronic kidney disease Admission Status: Observation Assessment and Plan MARANDA on CKD 5 Hypokalemia Hypomagnesemia Hypocalcemia Hyperphospatemia Anemia of chronic disease IV fluids Monitor and replace electrolytes as needed Hold diuretics Oral bicarb Phoslo HTN HLD T2DM Anxiety Depression Hypothyroidism Continue home meds once med rec completed Morbid obesity Clinically significant, no acute management needs DVT prophylaxis: Heparin Diagnosis/Problems Diagnosis/Problems (1) Acute kidney injury superimposed on chronic kidney disease Status: Acute (2) CKD (chronic kidney disease) stage 5, GFR less than 15 ml/min Status: Chronic (3) Hypokalemia Status: Acute (4) Hypomagnesemia Status: Acute (5) Hypocalcemia Status: Acute (6) Hyperphosphatemia Status: Acute (7) Anemia of chronic disease Status: Chronic (8) Anxiety and depression Status: Chronic (9) HTN (hypertension) Status: Chronic (10) HLD (hyperlipidemia) Status: Chronic (11) T2DM (type 2 diabetes mellitus) Status: Chronic (12) Hypothyroidism Status: Chronic (13) Morbid obesity Status: Chronic BARB GUIDRY MD Oct 12, 2021 16:11
[2021-10-12] MEDS: MAGNESIUM 1 GM/100 ML IVPB 100 ML IV SCH ×2 (16:52→17:58)
[2021-10-12 20:08] VITALS: BP 100/61
[2021-10-12] MEDS ORDERED: BUSP5TAB59 PO (22:28)
[2021-10-12] MEDS ORDERED: IRON18TA PO (22:28)
[2021-10-12] MEDS ORDERED: LEVO175C2 PO (22:28)
[2021-10-12] MEDS ORDERED: METO50TA15 PO (22:28)
[2021-10-12] MEDS ORDERED: METO2.5T PO (22:28)
[2021-10-12] MEDS ORDERED: HYDR-3584 PO (22:28)
[2021-10-12] MEDS ORDERED: hydrOXYzine (ATARAX) 10 MG TAB PO SCH (22:45)
[2021-10-12] MEDS ORDERED: PATIENT MAY USE OWN MEDS, ALL MC SCH (22:45)
[2021-10-13 00:40] VITALS: BP 147/80
[2021-10-13 04:00] VITALS: BP 111/67
[2021-10-13] MEDS: inSUlin ASPART (NovoLOG) 1 UNIT/0.01 ML (CHARGE PER UNIT) SC SCH ×2 (06:08→11:00)
[2021-10-13 07:39] VITALS: BP 108/70
[2021-10-13] MEDS ORDERED: busPIRone 5 MG (BUSPAR) TAB PO PRN (08:15)
[2021-10-13] MEDS ORDERED: FUROSEMIDE 40 MG (LASIX) TAB PO PRN (08:15)
[2021-10-13] MEDS ORDERED: METOLAZONE 2.5 MG (ZAROXOLYN) TAB PO PRN (08:15)
[2021-10-13 08:18] LABS: POTASSIUM 4.2 MMOL/L (3.6-5.0)
[2021-10-13 08:23] LABS: CREATININE SERUM 3.25 MG/DL (0.60-1.30)
[2021-10-13 08:25] LABS: CALCIUM 5.9 MG/DL (8.5-10.1)
[2021-10-13] MEDS: CALCIUM ACETATE 667 MG CAP (PHOSLO) PO SCH (08:34)
[2021-10-13] MEDS: SODIUM BICARBONATE 650 MG TABLET (NON-FORMULARY) PO SCH (08:34)
[2021-10-13] MEDS: NS W/KCL 40 MEQ/L 1,000 ML IV SCH (08:38)
[2021-10-13] MEDS ORDERED: LEVOTHYROXINE 175 MCG TAB PO SCH (09:00)
[2021-10-13] MEDS ORDERED: CALCIUM GLUCONATE 10% INJ 4.65 MEQ in NS (IVPB) 50 ML IV ONE (09:00)
[2021-10-13] MEDS ORDERED: glipiZIDE XL 5 MG (GLUCOTROL XL) TAB PO SCH (09:00)
[2021-10-13] MEDS ORDERED: [UNRECOGNIZED DRUG - OTHER] PO SCH (09:00)
[2021-10-13] MEDS ORDERED: IRON 18 MG PO SCH (09:00)
[2021-10-13] MEDS ORDERED: CALC667C10 PO (10:04)
[2021-10-13] MEDS ORDERED: ALPR.25T PO (10:04)
[2021-10-13] MEDS ORDERED: NF-SODBICA PO (10:04)
[2021-10-13] MEDS ORDERED: FURO40TA4 PO (10:04)
[2021-10-13 11:39] VITALS: BP 116/69
[2021-10-13] MEDS ORDERED: meTOprolol TARTRATE 50 MG (LOPRESSOR) TAB PO SCH (18:00)
--- NOTE | 2021-10-13 18:43 | Discharge Summary ---
Discharge Summary Hospital Course Problems/Dx: (1) Acute kidney injury superimposed on chronic kidney disease Status: Acute (2) CKD (chronic kidney disease) stage 5, GFR less than 15 ml/min Status: Chronic (3) Hypokalemia Status: Acute (4) Hypomagnesemia Status: Acute (5) Hypocalcemia Status: Acute (6) Hyperphosphatemia Status: Acute (7) Anemia of chronic disease Status: Chronic (8) Anxiety and depression Status: Chronic (9) HTN (hypertension) Status: Chronic (10) HLD (hyperlipidemia) Status: Chronic (11) T2DM (type 2 diabetes mellitus) Status: Chronic (12) Hypothyroidism Status: Chronic (13) Morbid obesity Status: Chronic Hospital Course Date of Admission: Oct 12, 2021 at 02:30 Admission Diagnosis : Family Physician/Provider: Arianna Ramos DO Date of Discharge: 10/13/21 Discharge Diagnosis: [ ] Hospital Course: [ ] Labs and Pending Lab Test: Laboratory Tests 10/12/21 20:02: Glucometer 188H 10/13/21 06:01: Glucometer 136H 10/13/21 07:55: Sodium Level 140, Potassium Level 4.2, Chloride Level 105, Carbon Dioxide Level 20L, Anion Gap 15H, Blood Urea Nitrogen 46H, Creatinine 3.25H, Estimat Glomerular Filtration Rate 14, BUN/Creatinine Ratio 14, Glucose Level 157H, Calcium Level 5.9*L 10/13/21 11:00: Glucometer 171H Home Meds Active Xanax Tablet (Alprazolam) 0.25 Mg Tab 0.25 Mg PO Q6H PRN 7 Days Calcium Acetate 667 Mg Capsule 667 Mg PO TIDWM 30 Days Sodium Bicarbonate 650 Mg Tablet 1,300 Mg PO TID 30 Days Furosemide 40 Mg Tablet 40 Mg PO BID 30 Days Dermoplast Pain Relieving [place] (Benzocaine/Menthol) 78 Gm Aerosol 1 Ea TP TID PRN Reported Iron 18 Mg Tablet 18 Mg PO DAILY Metoprolol Tartrate 50 Mg Tablet 50 Mg PO BID WITH MEALS Hydroxyzine HCl 10 Mg Tablet 10 Mg PO DAILY Buspirone HCl 5 Mg Tablet 5 Mg PO TID PRN 1 TAB BID PRN ANXIETY Metolazone 2.5 Mg Tablet 2.5 Mg PO PRN Glipizide ER (Glipizide) 5 Mg Tab.er.24 5 Mg PO DAILY Xalatan (Latanoprost) 2.5 Ml Drops 1 Drop OU HS Tizanidine HCl 4 Mg Tablet 4 Mg PO BID PRN Atorvastatin Calcium 20 Mg Tablet 20 Mg PO DAILY Levothyroxine Sodium 175 Mcg Tablet 175 Mcg PO DAILY Mirtazapine 15 Mg Tablet 15 Mg PO HS TAKES 1-2 TABS Discharge Physical Examination Vital Signs Vital Signs Date Time Temp Pulse Resp B/P (MAP) Pulse Ox O2 Delivery O2 Flow Rate FiO2 10/13/21 13:30 Room Air 10/13/21 11:39 36.1 73 18 93 Allergies: Coded Allergies: No Known Allergies (Verified Allergy, Unknown, 03/06/21) adhesive tape (Unverified Adverse Reaction, Unknown, 11/19/17) Discharge Summary Date of Admission Oct 12, 2021 at 02:30 Date of Discharge Oct 13, 2021 at 13:30 Admission Diagnosis Acute kidney injury superimposed on chronic kidney disease Discharge Diagnosis MARANDA on CKD 5 Hypokalemia Hypomagnesemia Hypocalcemia Hyperphospatemia Anemia of chronic disease IV fluids Monitor and replace electrolytes as needed Hold diuretics Oral bicarb Phoslo HTN HLD T2DM Anxiety Depression Hypothyroidism Continue home meds once med rec completed Morbid obesity Clinically significant, no acute management needs DVT prophylaxis: Heparin (1) Acute kidney injury superimposed on chronic kidney disease Status: Acute (2) CKD (chronic kidney disease) stage 5, GFR less than 15 ml/min Status: Chronic (3) Hypokalemia Status: Acute (4) Hypomagnesemia Status: Acute (5) Hypocalcemia Status: Acute (6) Hyperphosphatemia Status: Acute (7) Anemia of chronic disease Status: Chronic (8) Anxiety and depression Status: Chronic (9) HTN (hypertension) Status: Chronic (10) HLD (hyperlipidemia) Status: Chronic (11) T2DM (type 2 diabetes mellitus) Status: Chronic (12) Hypothyroidism Status: Chronic (13) Morbid obesity Status: Chronic BARB GUIDRY MD Oct 13, 2021 18:43
[2021-10-13] MEDS ORDERED: LATANOPROST 0.005% (XALATAN) OPHTH SOLN 2.5 ML OU SCH (21:00)
[2021-10-13] MEDS ORDERED: MIRTAZAPINE 15 MG (REMERON) TAB PO SCH (21:00)
[2021-10-13] MEDS ORDERED: NON-FORMULARY MEDICATION 1 EA EA (Mirtazapine 15 MG) PO SCH (21:00)
[2021-10-13] MEDS ORDERED: hydrOXYzine (ATARAX) 10 MG TAB PO SCH (21:00)
[2021-10-13] MEDS ORDERED: MIRTAZAPINE 30 MG TABLET PO SCH (21:00)
== END 2021-10-13 13:30 | disposition home or self-care (01) ==
LOC: EDUNIT# 22:24 → ER 22:27 → 4TH 10-12 02:30 → INTOOBSV 10-12 02:30 → EDLOC 10-12 02:30 → 4TH 10-12 03:16
PROVIDERS: ADMIT Internal Medicine; ATTEND Internal Medicine
DX: I12.0 Hypertensive chronic kidney disease with stage 5 chronic kidney disease or end stage renal disease (principal); E11.22 Type 2 diabetes mellitus with diabetic chronic kidney disease; N18.5 Chronic kidney disease, stage 5; D63.1 Anemia in chronic kidney disease; F32.A Depression, unspecified; F41.9 Anxiety disorder, unspecified; E03.9 Hypothyroidism, unspecified; E87.6 Hypokalemia; E83.42 Hypomagnesemia; E83.51 Hypocalcemia; E83.39 Other disorders of phosphorus metabolism; E66.01 Morbid (severe) obesity due to excess calories; E78.00 Pure hypercholesterolemia, unspecified; E11.42 Type 2 diabetes mellitus with diabetic polyneuropathy; G89.29 Other chronic pain
CPT/HCPCS: 36415; 80048; 80053; 82947; 83735; 84100; 85025; 86141; G0378

== ENCOUNTER 2021-11-09 11:22 | Emergency (ER) | payer MEDICARE ==
[~2021-11-09] VITALS: Ht 155 cm; Wt 86.6 kg
[~2021-11-09 11:22] MED LIST changes: +ALPR.25T PO; +BUSP5TAB59 PO; +CALC667C10 PO; +HYDR-3584 PO; +IRON18TA PO; +LEVO175C2 PO; +METO2.5T PO; +METO50TA15 PO; +NF-SODBICA PO
--- NOTE | 2021-11-09 11:38 | ED Integumentary General ---
General Stated Complaint: DIALYSIS SHUNT LEAKAGE Source: patient, EMS Exam Limitations: no limitations History of Present Illness Date Seen by Provider: Nov 09, 2021 Time Seen by Provider: 11:21 Initial Comments Patient to the ER by EMS from dialysis center with chief complaint that she had some blood leaking from the surgical site of her left fistula. She is staying at the inpatient rehab center at [facility]. Apparently her fistula on the left arm did not ever develop correctly and so the surgeon at [place] discontinued it surgically on Friday, 7 days ago. She still has naresh in place. She says they were working to get a Clair lift sheet under her and she felt they are being rough with her arm a little bit which caused it to start leaking some dark red sanguinous drainage. They put a dressing on it which EMS replaced when they arrived. EMS reports her vitals are normal. She has a dry nonproductive cough and states she had a negative COVID test yesterday at [facility]. She was in the hospital for a cumulative about 3 months for pneumonia recently. She has been off antibiotics for several weeks. No fevers or chills sore throat or congestion. Patient has been on oxygen supplementally ever since her pneumonia however she does not have baseline COPD or asthma Allergies and Home Medications Allergies Coded Allergies: No Known Allergies (Verified Allergy, Unknown, 03/06/21) adhesive tape (Unverified Adverse Reaction, Unknown, 11/19/17) Patient Home Medication List Home Medication List Reviewed: Yes ALPRAZolam (Xanax Tablet) 0.25 Mg Tab, 0.25 MG PO Q6H PRN for ANXIETY Prescribed by: BARB GUIDRY on 10/13/21 1005 Atorvastatin Calcium (Atorvastatin Calcium) 20 Mg Tablet, 20 MG PO DAILY, (Reported) Entered as Reported by: KEVIN LAW on 03/06/21 1416 Benzocaine/Menthol (Dermoplast Pain Relieving [place]) 78 Gm Aerosol, 1 EA TP TID PRN for pain Prescribed by: JOSE RENDON on 03/09/21 0837 Buspirone HCl (Buspirone HCl) 5 Mg Tablet, 5 MG PO TID PRN for ANXIETY, (Reported) Entered as Reported by: CON MONTANO on 10/12/21 2228 Calcium Acetate (Calcium Acetate) 667 Mg Capsule, 667 MG PO TIDWM Prescribed by: BARB GUIDRY on 10/13/21 100 Furosemide (Furosemide) 40 Mg Tablet, 40 MG PO BID Prescribed by: BARB GUIDRY on 10/13/21 100 Glipizide (Glipizide ER) 5 Mg Tab.er.24, 5 MG PO DAILY, (Reported) Entered as Reported by: SARKIS CHRISTINA on 05/27/21 0850 Hydroxyzine HCl (Hydroxyzine HCl) 10 Mg Tablet, 10 MG PO DAILY, (Reported) Entered as Reported by: CON MONTANO on 10/12/212227 Iron (Iron) 18 Mg Tablet, 18 MG PO DAILY, (Reported) Entered as Reported by: CON MONTANO on 10/12/212227 Latanoprost (Xalatan) 2.5 Ml Drops, 1 DROP OU HS, (Reported) Entered as Reported by: KEVIN LAW on 03/06/21 141 Levothyroxine Sodium (Levothyroxine Sodium) 175 Mcg Tablet, 175 MCG PO DAILY, (Reported) Entered as Reported by: KEVIN LAW on 03/06/211415 Metolazone (Metolazone) 2.5 Mg Tablet, 2.5 MG PO PRN, (Reported) Entered as Reported by: CON MONTANO on 10/12/212227 Metoprolol Tartrate (Metoprolol Tartrate) 50 Mg Tablet, 50 MG PO BID WITH MEALS, (Reported) Entered as Reported by: CON MONTANO on 10/12/212227 Mirtazapine (Mirtazapine) 15 Mg Tablet, 15 MG PO HS, (Reported) Entered as Reported by: KEVIN LAW on 03/06/21 141 Sodium Bicarbonate (Sodium Bicarbonate) 650 Mg Tablet, 1,300 MG PO TID Prescribed by: BARB GUIDRY on 10/13/21 100 Tizanidine HCl (Tizanidine HCl) 4 Mg Tablet, 4 MG PO BID PRN for MUSCLE SPASMS, (Reported) Entered as Reported by: KEVIN LAW on 03/06/21 141 Review of Systems Review of Systems Constitutional: No chills, No diaphoresis EENTM: No ear discharge, No ear pain Respiratory: cough; No phlegm, No short of breath Cardiovascular: No edema, No palpitations Gastrointestinal: No abdominal pain, No constipation, No diarrhea Genitourinary: No discharge, No dysuria Musculoskeletal: No back pain, No joint pain Skin: see HPI; No pruritus, No rash All Other Systems Reviewed Negative Unless Noted: Yes Past Dzkfhfx-Xtrmrp-Jojgwr Hx Patient Social History Tobacco Use?: No Use of E-Cig and/or Vaping dev: No Immunizations Up To Date Tetanus Booster (TDap): Less than 5yrs PED Vaccines UTD: Yes First/Initial COVID19 Vaccinat: JANUARY 2021 Second COVID19 Vaccination Portillo: JANUARY 2021 Third COVID19 Vaccination Date: JUN 2021 Seasonal Allergies Seasonal Allergies: No Past Medical History Surgery/Hospitalization HX: THYROIDECTOMY 2009FLEXIBLE SIGMOIDOSCOPY 10/2013GASTRIC BYPASSCHOLECYSTECTOMYMULTIPLE I&D'S OF ABSCESSES, INCLUDING PILONIDAL CYST/ABSCESSMULTIPLE DEBRIDEMENTS OF NECROTIZING FASCITIS STAGE 4 CKD Surgeries: Yes (PILONIDAL CYST/ABSCESS;MULTIPLE DEBRIDEMENTS FOR NECROTIZING FASCITIS; ) Abdominal, Gallbladder, Thyroidectomy Respiratory: No Currently Using CPAP: No Currently Using BIPAP: No Cardiac: Yes High Cholesterol, Hypertension Neurological: Yes Neuropathy Reproductive Disorders: No Female Reproductive Disorders: Denies [employer]ENCH History: Menopausal HIV/AIDS: No Genitourinary: Yes (STAGE 4 RENAL FAILURE--NO DIALYSIS) Renal Failure Gastrointestinal: Yes (GASTRIC BYPASS) Musculoskeletal: Yes (CHRONIC GENERALIZED PAIN ) Arthritis, Chronic Back Pain Endocrine: Yes (THYROID CANCER;MORBID OBESITY) Hypothyroidsim, Diabetes, Non-Insulin dep HEENT: No Loss of Vision: Denies Hearing Impairment: Denies Cancer: Yes Thyroid Did You Recieve Any Treatments: Yes What Type of Treatment Did You: Surgical Intervention Psychosocial: Yes Anxiety, Depression Integumentary: Yes (HX- NECROTIZING FASCITIS IN 1989;PILONIDAL CYST/ABSCESS;BARTHOLIN'S ABSCESS) Blood Disorders: No Family Medical History Heart Disease, Diabetes, Hypertension, Other Conditions/Hx PAST SURGICAL /PROCEDURAL HISTORY: -FLEXIBLE SIGMOIDOSCOPY 10/2013 -GASTRIC BYPASS -THYROIDECTOMY 2009 -CHOLECYSTECTOMY - PANICULECTOMY Physical Exam Vital Signs Vital Signs - First Documented 11/09/21 11:22 Temp 36.6 Pulse 109 Resp 22 B/P (MAP) 109/97 (101) Pulse Ox 100 O2 Delivery Room Air Capillary Refill : General Appearance: no apparent distress, other (Obese, chronically ill) HEENT: PERRL/EOMI, pharynx normal Neck: full range of motion, normal inspection Cardiovascular: normal peripheral pulses, regular rate, rhythm Respiratory: lungs clear, normal breath sounds, no respiratory distress, no accessory muscle use Gastrointestinal: normal bowel sounds, non tender, soft Neurologic/Psychiatric: alert, normal mood/affect, oriented x 3 Skin: warm/dry, ecchymosis (Left humerus), other (There is a stapled surgical wound over the area of the fistula on anterior to the left humerus. In the middle of the wound is draining a scant amount of dark redmaroon serosanguineous drainage. No erythema, induration, fluctuance. There is a significant hematoma palpable.) Progress/Results/Core Measures Results/Orders My Orders Orders - DARYN OLIVIER Chest 1 View, Ap/Pa Only (11/09/21 11:31) Covid-19 External Lab Results (11/09/21 11:41) Vital Signs/I&O 11/09/21 11:22 Temp 36.6 Pulse 109 Resp 22 B/P (MAP) 109/97 (101) Pulse Ox 100 O2 Delivery Room Air Progress Progress Note #1: Time: 11:36 Progress Note I suspect the patient has a postsurgical seroma that has been opened up incidentally and is draining between the naresh of her surgical wound. There is no evidence of infection. She is had no fevers or chills. Cleaned the site with chlorhexidine and applied sterile ABD pad. We will [facility] to the [facility] to do daily dressing changes and cleaning with soap and water. Observe for signs of infection. Return precautions were given and the patient is okay with this plan. We did offer her a chest x-ray for her cough which she accepted. She declined doing any further testing including COVID or flu swabs. Progress Note #2: Time: 12:20 Progress Note With the patient's permission we discussed the case with her sister who is looking after her and the patient is stable and can go back with instructions to clean and change the dressing daily until it heals. She would need to keep her follow-up appointments with the surgeon. We discussed return precautions and the patient is okay with this plan. Diagnostic Imaging Diagonstic Imaging: Xray Plain Films/CT/US/NM/MRI: chest Comments Compared to May chest x-ray she has interval double-lumen dialysis catheter over the right subclavian terminating in the superior vena cava. She has little bit of scarring on the base of her right lung likely from the previous pneumonia. She has some mild pleural effusions left worse than right. [facility] [place] NAME: GRADY [facility] REC#: [id number] PT STATUS: REG ER : 1955 PHYSICIAN: DARYN OLIVIER MD ADMIT DATE: 11/09/21/ER Draft Date of Exam:11/09/21 CHEST 1 VIEW, AP/PA ONLY INDICATION: Cough. TIME OF EXAM: 12:03 PM CORRELATION is made with prior chest 05/28/2021. FINDINGS: The heart is enlarged but stable. There is a right-sided dialysis line, the tip overlying the SVC. There appears to be left basilar consolidation and pleural fluid. Right lung is clear. There is no pneumothorax. IMPRESSION: Cardiomegaly with left basilar consolidation and a small left effusion. Dictated on workstation # [id number] Dict: 11/09/21 1202 Trans: 11/09/21 1204 [facility] [id number] Interpreted by: CANDY JAMES MD Electronically signed by: Reviewed: Reviewed by Me Departure Impression Primary Impression: Postoperative seroma of subcutaneous tissue Qualified Codes: L76.34 - Postprocedural seroma of skin and subcutaneous tissue following other procedure Disposition: HOME, SELF-CARE Condition: Stable Departure-Patient Inst. Decision time for Depature: 12:20 Referrals: ROBINSON KIM DO (PCP/Family) Primary Care Physician Patient Instructions: HEMATOMA Add. Discharge Instructions: He had a collection of fluid that occurs after surgery started to drain from the surgical wound. It does not appear infected. If it becomes red hot swollen or increasing pain or you develop fever then you need to get a hold of your surgeon or your primary care doctor to reexamine your surgical wound and consider antibiotics. At this time we just need to clean it with soap and water at least once a day and change the dressing daily until the naresh come out at your follow-up appointment. If you have any questions call your surgeon for further guidance. If your symptoms become severe or you have new, worrisome concerns you may always return to the ER for further evaluation. DARYN OLIVIER Nov 09, 2021 11:38
--- NOTE | 2021-11-09 12:05 | Diagnostic Imaging Report ---
INDICATION: Cough. TIME OF EXAM: 12:03 PM CORRELATION is made with prior chest 05/28/2021. FINDINGS: The heart is enlarged but stable. There is a right-sided dialysis line, the tip overlying the SVC. There appears to be left basilar consolidation and pleural fluid. Right lung is clear. There is no pneumothorax. IMPRESSION: Cardiomegaly with left basilar consolidation and a small left effusion. Dictated by: Dictated on workstation # [id number]
[2021-11-09 12:48] VITALS: BP 105/78
== END 2021-11-09 12:48 | disposition home or self-care (01) ==
LOC: EDUNIT# 11:22 → ER 11:24
DX: L76.34 Postprocedural seroma of skin and subcutaneous tissue following other procedure (principal); I10 Essential (primary) hypertension; E78.00 Pure hypercholesterolemia, unspecified; F41.9 Anxiety disorder, unspecified; F32.9 Major depressive disorder, single episode, unspecified; E66.9 Obesity, unspecified; E03.9 Hypothyroidism, unspecified; E11.9 Type 2 diabetes mellitus without complications; Z79.899 Other long term (current) drug therapy; Z79.890 Hormone replacement therapy
CPT/HCPCS: 71045

== ENCOUNTER 2021-11-12 11:00 | Emergency (ER) | payer MEDICARE ==
[~2021-11-12] VITALS: Ht 155 cm; Wt 86.2 kg
[2021-11-12 11:00] VITALS: BP 97/87
[2021-11-12] MEDS ORDERED: NS IV 500 ML 500 ML IV STA (11:28)
--- NOTE | 2021-11-12 11:28 | ED General ---
General Chief Complaint: General Problems/Pain Stated Complaint: COUGH Nursing Triage Note: PT TO RM 8 VIA [facility] FROM [facility]. EMS CALLED FOR HYPOTENSION, UPON ARRIVAL ON SCENE PT SPO2 90%. EMS ADMIN 2L O2 VIA NC. PT C/O DRY COUGH AT THIS TIME. REPORTS HER LAST COVID SWAB WAS ON FRIDAY, RESULTED NEGATIVE. PT DENIES PAIN AT THIS TIME. EMS REPORTS STAFF AT [facility] ADVISED THEY TOOK OFF 95CC AND PUT ON 1000CC BUT DID NOT COMPLETE FULL DIALYSIS TX. PT A&OX4. (KASSANDRA ZAYAS) History of Present Illness Date Seen by Provider: Nov 12, 2021 Time Seen by Provider: 11:25 Initial Comments Patient is a 66-year-old female with a history of chronic kidney disease requiring dialysis Friday, Friday, Friday, hypertension who presents the ED by EMS for hypotension. Patient was getting dialysis this morning when she was found to be hypotensive. Initially took off 95 ml of fluid but returned 1000 ml. Patient states she does have a dry cough. She she was diagnosed with pneumonia but not currently on antibiotics. She denies of any weakness, chest pain, shortness of breath, abdominal pain, vomiting, diarrhea, fever, chills. She does wear 4 L oxygen at night. She was found to be hypoxic at 90% on room air and was placed on 4 L with improvement at this time. She slightly hypotensive. Dry lips. She denies dizziness, chest pain, shortness of breath, dark tarry stool, abdominal pain or any acute distress. Patient does have a Hillman catheter (KASSANDRA ZAYAS) Allergies and Home Medications Allergies Coded Allergies: No Known Allergies (Verified Allergy, Unknown, 03/06/21) adhesive tape (Unverified Adverse Reaction, Unknown, 11/19/17) Patient Home Medication List Home Medication List Reviewed: Yes (KASSANDRA ZAYAS) ALPRAZolam (Xanax Tablet) 0.25 Mg Tab, 0.25 MG PO Q6H PRN for ANXIETY Prescribed by: BARB GUIDRY on 10/13/21 1005 Atorvastatin Calcium (Atorvastatin Calcium) 20 Mg Tablet, 20 MG PO DAILY, (Reported) Entered as Reported by: KEVIN LAW on 03/06/21 1416 Benzocaine/Menthol (Dermoplast Pain Relieving [place]) 78 Gm Aerosol, 1 EA TP TID PRN for pain Prescribed by: JOSE RENDON on 03/09/21 0837 Buspirone HCl (Buspirone HCl) 5 Mg Tablet, 5 MG PO TID PRN for ANXIETY, (Reported) Entered as Reported by: CON MONTANO on 10/12/212227 Calcium Acetate (Calcium Acetate) 667 Mg Capsule, 667 MG PO TIDWM Prescribed by: BARB GIUDRY on 10/13/21 100 Furosemide (Furosemide) 40 Mg Tablet, 40 MG PO BID Prescribed by: BARB GUIDRY on 10/13/21 100 Glipizide (Glipizide ER) 5 Mg Tab.er.24, 5 MG PO DAILY, (Reported) Entered as Reported by: SARKIS CHRISTINA on 05/27/21 0850 Hydroxyzine HCl (Hydroxyzine HCl) 10 Mg Tablet, 10 MG PO DAILY, (Reported) Entered as Reported by: CON MONTANO on 10/12/212227 Iron (Iron) 18 Mg Tablet, 18 MG PO DAILY, (Reported) Entered as Reported by: CON MONTANO on 10/12/212227 Latanoprost (Xalatan) 2.5 Ml Drops, 1 DROP OU HS, (Reported) Entered as Reported by: KEVIN LAW on 03/06/21 141 Levothyroxine Sodium (Levothyroxine Sodium) 175 Mcg Tablet, 175 MCG PO DAILY, (Reported) Entered as Reported by: KEVIN LAW on 03/06/21 141 Metolazone (Metolazone) 2.5 Mg Tablet, 2.5 MG PO PRN, (Reported) Entered as Reported by: CON MONTANO on 10/12/212227 Metoprolol Tartrate (Metoprolol Tartrate) 50 Mg Tablet, 50 MG PO BID WITH MEALS, (Reported) Entered as Reported by: CON MONTANO on 10/12/212227 Mirtazapine (Mirtazapine) 15 Mg Tablet, 15 MG PO HS, (Reported) Entered as Reported by: KEVIN LAW on 03/06/21 141 Sodium Bicarbonate (Sodium Bicarbonate) 650 Mg Tablet, 1,300 MG PO TID Prescribed by: BARB GUIDRY on 10/13/21 100 Tizanidine HCl (Tizanidine HCl) 4 Mg Tablet, 4 MG PO BID PRN for MUSCLE SPASMS, (Reported) Entered as Reported by: KEVIN LAW on 03/06/21 1416 Review of Systems Review of Systems Constitutional: No chills, No diaphoresis, No dizziness, No fever EENTM: No eye pain, No nose congestion Respiratory: cough; No short of breath, No stridor, No wheezing Cardiovascular: No chest pain, No edema Gastrointestinal: No abdominal pain, No diarrhea, No vomiting Genitourinary: No decreased output, No discharge, No dysuria, No frequency Musculoskeletal: No back pain, No joint pain, No muscle pain, No muscle stiffness Skin: No change in color; dryness (KASSANDRA ZAYAS) All Other Systems Reviewed Negative Unless Noted: Yes (KASSANDRA ZAYAS) Past Bxfndbs-Xrsxxs-Zowpol Hx Patient Social History Tobacco Use?: No Use of E-Cig and/or Vaping dev: No Substance use?: No Alcohol Use?: No (KASSANDRA ZAYAS) Immunizations Up To Date Tetanus Booster (TDap): Less than 5yrs PED Vaccines UTD: Yes Influenza Vaccine Up-to-Date: Yes; Up-to-Date First/Initial COVID19 Vaccinat: JANUARY 2021 Second COVID19 Vaccination [place]: JANUARY 2021 Third COVID19 Vaccination Date: JUN 2021 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 Work: [employer] (KASSANDRA ZAYAS) Seasonal Allergies Seasonal Allergies: No (KASSANDRA ZAYAS) Past Medical History Surgery/Hospitalization HX: THYROIDECTOMY 2009 FLEXIBLE SIGMOIDOSCOPY 10/2013 GASTRIC BYPASS CHOLECYSTECTOMY MULTIPLE I&D'S OF ABSCESSES, INCLUDING PILONIDAL CYST/ABSCESS MULTIPLE DEBRIDEMENTS OF NECROTIZING FASCITIS STAGE 4 CKD Surgeries: Yes (PILONIDAL CYST/ABSCESS;MULTIPLE DEBRIDEMENTS FOR NECROTIZING FASCITIS; ) Abdominal, Gallbladder, Thyroidectomy Respiratory: No Currently Using CPAP: No Currently Using BIPAP: No Cardiac: Yes High Cholesterol, Hypertension Neurological: Yes Neuropathy Reproductive Disorders: No Female Reproductive Disorders: Denies 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 HIV/AIDS: No Genitourinary: Yes (STAGE 4 RENAL FAILURE--NO DIALYSIS) Renal Failure Gastrointestinal: Yes (GASTRIC BYPASS) Musculoskeletal: Yes (CHRONIC GENERALIZED PAIN ) Arthritis, Chronic Back Pain Endocrine: Yes (THYROID CANCER;MORBID OBESITY) Hypothyroidsim, Diabetes, Non-Insulin dep HEENT: No Loss of Vision: Denies Hearing Impairment: Denies Cancer: Yes Thyroid Did You Recieve Any Treatments: Yes What Type of Treatment Did You: Surgical Intervention Psychosocial: Yes Anxiety, Depression Integumentary: Yes (HX- NECROTIZING FASCITIS IN 1989;PILONIDAL CYST/ABSCESS;BARTHOLIN'S ABSCESS) Blood Disorders: No (KASSANDRA ZAYAS) Family Medical History Heart Disease, Diabetes, Hypertension, Other Conditions/Hx PAST SURGICAL /PROCEDURAL HISTORY: -FLEXIBLE SIGMOIDOSCOPY 10/2013 -GASTRIC BYPASS -THYROIDECTOMY 2009 -CHOLECYSTECTOMY - PANICULECTOMY (KASSANDRA ZAYAS) Physical Exam Vital Signs Vital Signs - First Documented 11/12/21 11:00 Temp 36.0 Pulse 90 Resp 20 B/P (MAP) 97/87 (90) Pulse Ox 95 O2 Delivery Nasal Cannula O2 Flow Rate 2.00 (ELIZABETH RODRIGUEZ DO) Vital Signs Capillary Refill : Less Than 3 Seconds (KASSANDRA ZAYAS) Height, Weight, BMI Height: 5'1.00" Weight: 298lbs. 2.0oz. 135.198457my; 35.00 BMI Method:Stated General Appearance: No Apparent Distress, WD/WN Eyes: Bilateral Eye Normal Inspection, Bilateral Eye PERRL, Bilateral Eye EOMI HEENT: PERRL/EOMI, TMs Normal, Normal ENT Inspection, Pharynx Normal, Other (Dry lips) Neck: Full Range of Motion, Normal Inspection, Non Tender Respiratory: Chest Non Tender, Lungs Clear, Normal Breath Sounds, No Accessory Muscle Use, No Respiratory Distress Cardiovascular: Regular Rate, Rhythm, No Edema, No Gallop, No JVD Gastrointestinal: Normal Bowel Sounds, No Organomegaly, No Pulsatile Mass, Non Tender, Soft Extremity: Normal Capillary Refill, Normal Inspection, Normal Range of Motion, Non Tender, No Calf Tenderness; No Swelling (KASSANDRA ZAYAS) Focused Exam Lactate Level 11/12/21 12:45: Lactic Acid Level 1.71 (ELIZABETH RODRIGUEZ DO) Lactic Acid Level Laboratory Tests Test 11/12/21 12:45 Lactic Acid Level 1.71 MMOL/L (0.50-2.00) (ELIZABETH RODRIGUEZ DO) Progress/Results/Core Measures Suspected Sepsis SIRS Temperature: Pulse: 90 Respiratory Rate: 20 Laboratory Tests 11/12/21 12:45: White Blood Count 9.6 11/13/21 06:00: White Blood Count 8.4 Blood Pressure 97 /87 Mean: 90 11/12/21 12:45: Lactic Acid Level 1.71 Laboratory Tests 11/12/21 12:45: Creatinine 4.10H, INR Comment 1.3, Platelet Count 149, Total Bilirubin 1.5H 11/13/21 06:00: Creatinine 4.84#H, Platelet Count 148, Total Bilirubin 1.1H (KASSANDRA ZAYAS) Results/Orders Lab Results Laboratory Tests Test 11/12/21 12:45 11/12/21 13:26 11/12/21 19:15 11/12/21 23:43 Range/Units White Blood Count 9.6 4.3-11.0 10^3/uL Red Blood Count 3.03 L 3.80-5.11 10^6/uL Hemoglobin 9.4 L 11.5-16.0 g/dL Hematocrit 31 L 35-52 % Mean Corpuscular Volume 103 H 80-99 fL Mean Corpuscular Hemoglobin 31 25-34 pg Mean Corpuscular Hemoglobin Concent 30 L 32-36 g/dL Red Cell Distribution Width 19.8 H 10.0-14.5 % Platelet Count 149 130-400 10^3/uL Mean Platelet Volume 12.5 H 9.0-12.2 fL Immature Granulocyte % (Auto) 1 % Neutrophils (%) (Auto) 80 H 42-75 % Lymphocytes (%) (Auto) 13 12-44 % Monocytes (%) (Auto) 6 0-12 % Eosinophils (%) (Auto) 1 0-10 % Basophils (%) (Auto) 0 0-10 % Neutrophils # (Auto) 7.6 1.8-7.8 10^3/uL Lymphocytes # (Auto) 1.2 1.0-4.0 10^3/uL Monocytes # (Auto) 0.5 0.0-1.0 10^3/uL Eosinophils # (Auto) 0.1 0.0-0.3 10^3/uL Basophils # (Auto) 0.0 0.0-0.1 10^3/uL Immature Granulocyte # (Auto) 0.1 0.0-0.1 10^3/uL Prothrombin Time 16.9 H 12.2-14.7 SEC INR Comment 1.3 0.8-1.4 Activated Partial Thromboplast Time 40 H 24-35 SEC Sodium Level 138 135-145 MMOL/L Potassium Level 4.5 3.6-5.0 MMOL/L Chloride Level 101 98-107 MMOL/L Carbon Dioxide Level 19 L 21-32 MMOL/L Anion Gap 18 H 5-14 MMOL/L Blood Urea Nitrogen 52 H 7-18 MG/DL Creatinine 4.10 H 0.60-1.30 MG/DL Estimat Glomerular Filtration Rate 11 BUN/Creatinine Ratio 13 Glucose Level 169 H 70-105 MG/DL Lactic Acid Level 1.71 0.50-2.00 MMOL/L Calcium Level 8.5 8.5-10.1 MG/DL Corrected Calcium 9.0 8.5-10.1 MG/DL Magnesium Level 2.2 1.6-2.4 MG/DL Total Bilirubin 1.5 H 0.1-1.0 MG/DL Aspartate Amino Transf (AST/SGOT) 13 5-34 U/L Alanine Aminotransferase (ALT/SGPT) 10 0-55 U/L Alkaline Phosphatase 138 H 40-136 U/L Myoglobin 107.7 H 10.0-92.0 NG/ML Troponin I < 0.028 <0.028 NG/ML B-Type Natriuretic Peptide 163.2 H <100.0 PG/ML Total Protein 7.3 6.4-8.2 GM/DL Albumin 3.4 3.2-4.5 GM/DL Influenza Type A (RT-PCR) Not Detected Not Detecte Influenza Type B (RT-PCR) Not Detected Not Detecte SARS-CoV-2 RNA (RT-PCR) Not Detected Not Detecte Glucometer 128 H 70-110 MG/DL Urine Color ORANGE Urine Clarity CLOUDY Urine pH 5.0 5-9 Urine Specific [place] >=1.030 1.016-1.022 Urine Protein 2+ H NEGATIVE Urine Glucose (UA) NEGATIVE NEGATIVE Urine Ketones TRACE H NEGATIVE Urine Nitrite NEGATIVE NEGATIVE Urine Bilirubin 2+ H NEGATIVE Urine Urobilinogen 0.2 < = 1.0 MG/DL Urine Leukocyte Esterase 2+ H NEGATIVE Urine RBC (Auto) TRACE-I H NEGATIVE Urine RBC 2-5 H /HPF Urine WBC >100 H /HPF Urine Crystals NONE /LPF Urine Bacteria MODERATE H /HPF Urine Casts NONE /LPF Urine Mucus NEGATIVE /LPF Urine Yeast LARGE H /HPF Urine Culture Indicated YES Test 11/13/21 01:00 Range/Units Glucometer 217 H 70-110 MG/DL (ELIZABETH RODRIGUEZ DO) My Orders Orders - ELIZABETH RODRIGUEZ DO Ceftriaxone 1 Gm Pre-Mix (Rocephin 1 Gm (11/13/21 00:47) Benzonatate Capsule (Tessalon Perles) (11/13/21 01:00) Accucheck Stat ONCE (11/13/21 01:02) Cbc With Automated Diff (11/13/21 05:48) Comprehensive Metabolic Panel (11/13/21 05:48) Magnesium (11/13/21 05:48) Phosphorus (11/13/21 05:48) (ELIZABETH RODRIGUEZ DO) Medications Given in ED (ELIZABETH RODRIGUEZ DO) Vital Signs/I&O 11/12/21 11/12/21 11:00 11:03 Temp 36.0 Pulse 90 Resp 20 B/P (MAP) 97/87 (90) Pulse Ox 95 95 O2 Delivery Nasal Cannula Nasal Cannula O2 Flow Rate 2.00 2.00 (ELIZABETH RODRIGUEZ DO) Vital Signs/I&O Capillary Refill : Less Than 3 Seconds (KASSANDRA ZAYAS) Blood Pressure Mean: 90 Progress Note : Progress Note 2300--ASSUMED CARE OF PT AT END OF SHIFT. PT IS RESTING QUIETLY, HAS NO COMPLAINTS. VITALS STABLE WITH BP'S CONSISTENTLY > 100. PT HAS BEEN EATING AND DRINKING. UA IS PENDING AT THIS TIME. UA SHOWS UTI, WILL START ANTIBIOTIC. NO EVIDENCE OF SEPSIS AT THIS TIME--NO FEVER, NO TACHYCARDIA, NO LEUKOCYTOSIS, AND NO HYPOTENSION FOR MANY HOURS. VITALS REMAIN STABLE AND PT HAS NOT HAD ANY COMPLAINTS OF ANY KIND FOR THIS SHIFT. (ELIZABETH RODRIGUEZ DO) Progress Note #1: Time: 08:11 Progress Note Patient care assumed at shift change from Dr Rodriguez. Patient has been resting comfortably throughout the night. Awoke this morning with some constipation-like pain (no BM since Friday). 10mg of dulcolax ordered. I also reviewed her group home MAR and ordered all of her PO medications. I was not able to find her eye drops in our formulary. Her Blood pressures this morning are as follows from 0600 0600 105/71 0615 112/63 0630 105/62 0645 112/59 0700 98/60 Patient did void in the night and was found to have a UTI. Dr Rodriguez ordered 1gm of Rocephin. Progress Note #2: Time: 09:32 Progress Note Patient examined at this time. Blood pressure is 111 systolic. She is not tachycardic. She is awake alert and oriented without any complaints. She has not had breakfast but states that she is not very hungry. She declines anything else to drink at this time. Lungs are clear, heart is regular. She has extensive ecchymosis over the anterior chest wall consistent with previous hospitalization multiple blood thinners. Abdomen is soft and nontender. Moving all extremities well. I advised her that I would be attempting to contact her railway shunter who she claims that Montserrat Diaz at [facility] later this morning to review labs and vital signs with her. Patient is comfortable and without any acute complaints. Progress Note #3: Time: 13:04 Progress Note I was able to speak with Dr. Chin, [facility], a partner of the patient's railway shunter Montserrat Smart. I advised him of the patient's presenting complaint, initial labs and vital signs. I advised him of the therapies provided here in the emergency department as well as her repeat laboratory studies from this morning. I advised him that she is now in her more normotensive range with blood pressures in the 120s over 60s. She is completely asymptomatic. She is not volume overloaded. She looks good. I did tell Dr. Chin about her urinalysis findings. He advised no further antibiotics as frequently patients that are on dialysis will have findings consistent with a urinary tract infection. The patient is considering leaving the hospital AMA to go back to her group home. He stated that he would talk to both Dr. Kruse as well as her railway shunter and unless I heard back from him it was fine to go ahead and discharge the patient back to the group home to follow-up with her scheduled dialysis at 1030 tomorrow. The patient is quite happy with this. She has been in the department about 26 hours. We have been unsuccessful in attempting to find her an inpatient dialysis bed. I do not anticipate 1 to become available anytime in the near future. The patient has no emergent criteria of requiring emergent dialysis at this time. Her potassium is normal her vital signs are go od. Her sister is also at the bedside and is agreeable with this plan of care. All questions are sought and answered. (ROSALVA PATEL MD) ECG Comment Sinus rhythm, 89 bpm, QRS duration 86 MS, QTc 435 MS (KASSANDRA ZAYAS) Departure Communication (Admissions) Patient was brought to the ED by EMS from [facility] across the street for hypotension and unsuccessful dialysis. Patient did not receive dialysis on Friday. Recently discharged from [facility] for 3 months for inpatient dialysis secondary to chronic kidney disease. Patient on arrival hypotensive but did improve and stable. She reports a dry cough for several weeks. Not treated for pneumonia. Patient was not tachycardic. patient was placed on 4 L oxygen as her oxygen level was 90%. Rechecked and placed on 2 L at 97%. She does wear oxygen at home. No significant edema. No current chest pain abdominal pain vomiting, fever. Does have indwelling catheter. Patient with chronic anemia. Worsening kidney function. Normal potassium electrolytes within normal limits. Chest x-ray cardiomegaly with pulmonary congestion. No significant consolidation suggesting pneumonia. Normal white blood count. Covid negative. Normal lactic acid. Patient is currently stable at this time. Called multiple facilities for at least 2 to 3 hours without any successful placement. Contacted [facility] and currently working on placement. Did contact [facility] but was not able to accept patient. Patient is currently resting at this time. She was fed. Currently not monitoring blood sugar. Blood pressure stable. She is on Miodrine for her blood pressure. Difficult IV initially. Was able to place a midline the right side. Recently placed catheter on the left side. She does have a port on the right side of her chest for dialysis. No current abdominal tenderness. Urinalysis pending. At shift change discussed patient with Dr. Rodriguez who took over care. Continue waiting placement at this time. I did contact [facility], [facility], [facility] for placement and this was unsuccessful due to no available beds (KASSANDRA ZAYAS) Impression Primary Impression: Chronic renal failure Qualified Codes: N18.5 - Chronic kidney disease, stage 5 Additional Impressions: Hypotension Qualified Codes: I95.9 - Hypotension, unspecified NIDDM Disposition: 01 HOME, SELF-CARE Condition: Stable Departure-Patient Inst. Decision time for Depature: 13:07 (ROSALVA PATEL MD) Referrals: ROBINSON KIM DO (PCP/Family) Primary Care Physician Patient Instructions: Kidney Failure Add. Discharge Instructions: Please resume your previously prescribed home medications. Do not miss your scheduled dialysis appointment for tomorrow. Come back to the emergency department for any chest pain, shortness of breath, passing out spells significant vomiting or diarrhea, high fever or any other emergent concerning symptoms. I have discussed your laboratory evaluation both from yesterday and today with your nephrology group. They are comfortable with you being discharged back to the group home to resume dialysis tomorrow. KASSANDRA ZAYAS Nov 12, 2021 11:28 ELIZABETH RODRIGUEZ DO Nov 13, 2021 00:59 ROSALVA PATEL MD Nov 13, 2021 08:14
--- NOTE | 2021-11-12 11:46 | Diagnostic Imaging Report ---
INDICATION: Chest pain Single AP view of chest is obtained with comparison made to study of 11/09/2021. There is continued cardiomegaly. Increased density seen in the perihilar regions. There is blunting of left costophrenic sulcus. No pneumothorax is identified. Right central catheter remains in place. There is no new abnormality. IMPRESSION: Cardiomegaly and pulmonary venous congestion likely related to congestive heart failure. There is also evidence of mild left pleural fluid without significant interval change. Dictated by: Dictated on workstation # [id number]
[2021-11-12 13:00] LABS: BASOPHILS % (AUTO) 0 % (0-10); EOSINOPHILS # (AUTO) 0.1 10^3/uL (0.0-0.3); EOSINOPHILS % (AUTO) 1 % (0-10); HEMATOCRIT 31 % (35-52); HEMOGLOBIN 9.4 g/dL (11.5-16.0); LYMPHOCYTES # (AUTO) 1.2 10^3/uL (1.0-4.0); LYMPHOCYTES % (AUTO) 13 % (12-44); MEAN CORPUSCULAR HEMOGLOBIN 31 pg (25-34); MEAN CORPUSCULAR HGB CONC 30 g/dL (32-36); MEAN CORPUSCULAR VOLUME 103 fL (80-99); MEAN PLATELET VOLUME 12.5 fL (9.0-12.2); MONOCYTES # (AUTO) 0.5 10^3/uL (0.0-1.0); MONOCYTES % (AUTO) 6 % (0-12); NEUTROPHILS # (AUTO) 7.6 10^3/uL (1.8-7.8); NEUTROPHILS % (AUTO) 80 % (42-75); PLATELET COUNT 149 10^3/uL (130-400); WHITE BLOOD COUNT 9.6 10^3/uL (4.3-11.0)
[2021-11-12 13:05] LABS: ALBUMIN 3.4 GM/DL (3.2-4.5); POTASSIUM 4.5 MMOL/L (3.6-5.0)
[2021-11-12 13:06] LABS: CALCIUM 8.5 MG/DL (8.5-10.1)
[2021-11-12 13:07] LABS: TOTAL PROTEIN 7.3 GM/DL (6.4-8.2)
[2021-11-12 13:09] LABS: BILIRUBIN,TOTAL 1.5 MG/DL (0.1-1.0)
[2021-11-12 13:11] LABS: CREATININE SERUM 4.1 MG/DL (0.60-1.30)
[2021-11-12 13:12] LABS: INR 1.3 (0.8-1.4); PROTHROMBIN TIME PATIENT 16.9 SEC (12.2-14.7)
[2021-11-12 13:14] LABS: MAGNESIUM 2.2 MG/DL (1.6-2.4)
[2021-11-12] MEDS ORDERED: ONDANSETRON 4 MG/2 ML (SDV) Z0FRAN IVP ONE (14:45)
[2021-11-12 23:48] LABS: CLARITY,URINE CLOUDY; COLOR,URINE ORANGE; GLUCOSE, URINE (UA) NEGATIVE (NEGATIVE); KETONES,URINE TRACE (NEGATIVE); LEUKOCYTE ESTERASE ,URINE 2+ (NEGATIVE); NITRITE,URINE NEGATIVE (NEGATIVE); PROTEIN,URINE 2+ (NEGATIVE)
[2021-11-12 23:57] LABS: BACTERIA,URINE MODERATE /HPF; WBC,URINE >100 /HPF
[2021-11-12 23:58] LABS: YEAST,URINE LARGE /HPF
[2021-11-13 00:14] LABS: BILIRUBIN,URINE 2+ (NEGATIVE)
[2021-11-13] MEDS ORDERED: cefTRIAXone 1 GM PRE-MIX 50 ML IV STA (00:47)
[2021-11-13] MEDS ORDERED: BENZONATATE 100 MG (TESSALON) CAPSULE PO SCH (01:00)
[2021-11-13 06:09] LABS: BASOPHILS # (AUTO) 0.1 10^3/uL (0.0-0.1); BASOPHILS % (AUTO) 1 % (0-10); EOSINOPHILS # (AUTO) 0.1 10^3/uL (0.0-0.3); EOSINOPHILS % (AUTO) 1 % (0-10); HEMATOCRIT 29 % (35-52); HEMOGLOBIN 8.8 g/dL (11.5-16.0); LYMPHOCYTES # (AUTO) 1.3 10^3/uL (1.0-4.0); LYMPHOCYTES % (AUTO) 16 % (12-44); MEAN CORPUSCULAR HEMOGLOBIN 31 pg (25-34); MEAN CORPUSCULAR HGB CONC 31 g/dL (32-36); MEAN CORPUSCULAR VOLUME 100 fL (80-99); MEAN PLATELET VOLUME 12.5 fL (9.0-12.2); MONOCYTES # (AUTO) 0.6 10^3/uL (0.0-1.0); MONOCYTES % (AUTO) 7 % (0-12); NEUTROPHILS # (AUTO) 6.3 10^3/uL (1.8-7.8); NEUTROPHILS % (AUTO) 75 % (42-75); PLATELET COUNT 148 10^3/uL (130-400); WHITE BLOOD COUNT 8.4 10^3/uL (4.3-11.0)
[2021-11-13 06:20] LABS: ALBUMIN 3.2 GM/DL (3.2-4.5); POTASSIUM 4.8 MMOL/L (3.6-5.0)
[2021-11-13 06:21] LABS: CALCIUM 8.3 MG/DL (8.5-10.1)
[2021-11-13 06:23] LABS: TOTAL PROTEIN 6.8 GM/DL (6.4-8.2)
[2021-11-13 06:24] LABS: BILIRUBIN,TOTAL 1.1 MG/DL (0.1-1.0)
[2021-11-13 06:25] LABS: TRIGLYCERIDES 120 MG/DL (<150); VLDL CHOLESTEROL 24 MG/DL (5-40)
[2021-11-13 06:26] LABS: CREATININE SERUM 4.84 MG/DL (0.60-1.30); PHOSPHORUS 3.2 MG/DL (2.3-4.7)
[2021-11-13 06:29] LABS: MAGNESIUM 2.2 MG/DL (1.6-2.4)
[2021-11-13 06:30] LABS: CHOLESTEROL 74 MG/DL (< 200); HDL CHOLESTEROL 19 MG/DL (40-60)
[2021-11-13] MEDS ORDERED: BISACODYL 5 MG (DULCOLAX) TABLET PO ONE (07:00)
[2021-11-13] MEDS ORDERED: LEVOTHYROXINE 150 MCG (LEVOTHROID) TAB PO ONE (07:45)
[2021-11-13] MEDS ORDERED: VITAMIN D3 25 MCG (1,000 UNITS) TABLET PO ONE (07:45)
[2021-11-13] MEDS ORDERED: CALCITRIOL 0.25 MCG (ROCALTROL) CAPSULE PO STA (07:45)
[2021-11-13] MEDS ORDERED: PANTOPRAZOLE 40 MG (PROTONIX) TAB PO ONE (07:45)
[2021-11-13] MEDS ORDERED: CALCIUM CARBONATE 500 MG (TUMS) TAB.CHEW PO ONE (07:45)
[2021-11-13] MEDS ORDERED: AMIODARONE 200 MG (CORDARONE) TAB PO STA (07:45)
[2021-11-13] MEDS ORDERED: LEVOTHYROXINE 25 MCG (LEVOTHROID) TAB PO ONE (07:45)
== END 2021-11-13 13:57 | disposition home or self-care (01) ==
LOC: EDUNIT# 11:00 → ER 11:02
DX: I12.9 Hypertensive chronic kidney disease with stage 1 through stage 4 chronic kidney disease, or unspecified chronic kidney disease (principal); E11.22 Type 2 diabetes mellitus with diabetic chronic kidney disease; N18.4 Chronic kidney disease, stage 4 (severe); I95.9 Hypotension, unspecified; E78.00 Pure hypercholesterolemia, unspecified; E03.9 Hypothyroidism, unspecified; F41.9 Anxiety disorder, unspecified; F32.9 Major depressive disorder, single episode, unspecified; Z20.822 Contact with and (suspected) exposure to COVID-19; Z79.890 Hormone replacement therapy; Z79.891 Long term (current) use of opiate analgesic; Z79.899 Other long term (current) drug therapy
CPT/HCPCS: 36410; 71045; 76937; 80053 ×2; 80061; 81000; 82947 ×2; 83605; 83735 ×2; 83874; 83880; 84100; 84484; 85025 ×2; 85610; 85730; 87070; 87077; 87088; 87186; 87205; 87636; 93005; 93041; 99284; C1751; 36415; 96374; 96375

== ENCOUNTER 2022-01-05 14:30 | Emergency (ER) | payer MEDICARE ==
[~2022-01-05] VITALS: Ht 165 cm; Wt 113.0 kg
[2022-01-05] MEDS ORDERED: NS IV 500 ML 500 ML IV ONE ×2 (14:45→18:45)
--- NOTE | 2022-01-05 14:59 | ED General ---
General Stated Complaint: LOW BP Source of Information: Patient Exam Limitations: No Limitations History of Present Illness Date Seen by Provider: Jan 05, 2022 Time Seen by Provider: 14:40 Initial Comments This is a 66-year-old female who presented to the ER via [facility] from [facility] for concerns of generalized weakness, UTI, hypotension, hypoxia. States that over the past few days she has been experiencing increasing weakness and today when they evaluated her vitals her oxygen was noted to be in the 80s on room air. Nursing facility states they placed her on 5 L and was only able to obtain an oxygen saturation of 90%. She does have history of end stage renal failure requiring dialysis on Friday, Friday, and Friday. Her last dialysis apt. was yesterday, which she completed without difficulty. care home states that she does have a urinary tract infection however they are waiting on her culture results before they will treat. The nursing facility states that she was admitted on December 27, 2021 for rehab after an extended length of stay at [facility] in [facility]. She is noted to be on Eliquis 2.5 mg twice daily, she is very pale. Sister states that she is typically pale however she is more pale than her norm. Allergies and Home Medications Allergies Coded Allergies: No Known Allergies (Verified Allergy, Unknown, 03/06/21) adhesive tape (Unverified Adverse Reaction, Unknown, 11/19/17) Patient Home Medication List Home Medication List Reviewed: Yes ALPRAZolam (Xanax Tablet) 0.25 Mg Tab, 0.25 MG PO Q6H PRN for ANXIETY Prescribed by: BARB GUIDRY on 10/13/21 1005 Atorvastatin Calcium (Atorvastatin Calcium) 20 Mg Tablet, 20 MG PO DAILY, (Reported) Entered as Reported by: KEVIN LAW on 03/06/21 1416 Benzocaine/Menthol (Dermoplast Pain Relieving [employer]) 78 Gm Aerosol, 1 EA TP TID PRN for pain Prescribed by: JOSE RENDON on 03/09/21 0837 Buspirone HCl (Buspirone HCl) 5 Mg Tablet, 5 MG PO TID PRN for ANXIETY, (Reported) Entered as Reported by: CON MONTANO on 10/12/21 2228 Calcium Acetate (Calcium Acetate) 667 Mg Capsule, 667 MG PO TIDWM Prescribed by: BARB GUIDRY on 10/13/21 100 Furosemide (Furosemide) 40 Mg Tablet, 40 MG PO BID Prescribed by: BARB GUIDRY on 10/13/21 100 Glipizide (Glipizide ER) 5 Mg Tab.er.24, 5 MG PO DAILY, (Reported) Entered as Reported by: SARKIS CHRISTINA on 05/27/21 0850 Hydroxyzine HCl (Hydroxyzine HCl) 10 Mg Tablet, 10 MG PO DAILY, (Reported) Entered as Reported by: CON MONTANO on 10/12/212227 Iron (Iron) 18 Mg Tablet, 18 MG PO DAILY, (Reported) Entered as Reported by: CON MONTANO on 10/12/212227 Latanoprost (Xalatan) 2.5 Ml Drops, 1 DROP OU HS, (Reported) Entered as Reported by: KEVIN LAW on 03/06/211415 Levothyroxine Sodium (Levothyroxine Sodium) 175 Mcg Tablet, 175 MCG PO DAILY, (Reported) Entered as Reported by: KEVIN LAW on 03/06/211415 Metolazone (Metolazone) 2.5 Mg Tablet, 2.5 MG PO PRN, (Reported) Entered as Reported by: CON MONTANO on 10/12/212227 Metoprolol Tartrate (Metoprolol Tartrate) 50 Mg Tablet, 50 MG PO BID WITH MEALS, (Reported) Entered as Reported by: CON MONTANO on 10/12/212227 Mirtazapine (Mirtazapine) 15 Mg Tablet, 15 MG PO HS, (Reported) Entered as Reported by: KEVIN LAW on 03/06/21 141 Sodium Bicarbonate (Sodium Bicarbonate) 650 Mg Tablet, 1,300 MG PO TID Prescribed by: BARB GUIDRY on 10/13/21 100 Tizanidine HCl (Tizanidine HCl) 4 Mg Tablet, 4 MG PO BID PRN for MUSCLE SPASMS, (Reported) Entered as Reported by: KEVIN LAW on 03/06/211415 Review of Systems Review of Systems Constitutional: No dizziness, No fever; malaise, weakness EENTM: no symptoms reported Respiratory: see HPI Cardiovascular: no symptoms reported Gastrointestinal: no symptoms reported Genitourinary: no symptoms reported Musculoskeletal: no symptoms reported Skin: see HPI Psychiatric/Neurological: No Symptoms Reported Hematologic/Lymphatic: See HPI Immunological/Allergic: no symptoms reported Past Ntutnuj-Cwzjte-Dingfv Hx Immunizations Up To Date Tetanus Booster (TDap): Less than 5yrs PED Vaccines UTD: Yes First/Initial COVID19 Vaccinat: JANUARY 2021 Second COVID19 Vaccination Portillo: JANUARY 2021 Third COVID19 Vaccination Date: JUN 2021 Seasonal Allergies Seasonal Allergies: No Past Medical History Surgery/Hospitalization HX: THYROIDECTOMY 2009 FLEXIBLE SIGMOIDOSCOPY 10/2013 GASTRIC BYPASS CHOLECYSTECTOMY MULTIPLE I&D'S OF ABSCESSES, INCLUDING PILONIDAL CYST/ABSCESS MULTIPLE DEBRIDEMENTS OF NECROTIZING FASCITIS STAGE 4 CKD Surgeries: Yes (PILONIDAL CYST/ABSCESS;MULTIPLE DEBRIDEMENTS FOR NECROTIZING FASCITIS; ) Abdominal, Gallbladder, Thyroidectomy Respiratory: No Currently Using CPAP: No Currently Using BIPAP: No Cardiac: Yes High Cholesterol, Hypertension Neurological: Yes Neuropathy Reproductive Disorders: No Female Reproductive Disorders: Denies 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 History: Menopausal HIV/AIDS: No Genitourinary: Yes (STAGE 4 RENAL FAILURE--NO DIALYSIS) Renal Failure Gastrointestinal: Yes (GASTRIC BYPASS) Musculoskeletal: Yes (CHRONIC GENERALIZED PAIN ) Arthritis, Chronic Back Pain Endocrine: Yes (THYROID CANCER;MORBID OBESITY) Hypothyroidsim, Diabetes, Non-Insulin dep HEENT: No Loss of Vision: Denies Hearing Impairment: Denies Cancer: Yes Thyroid Did You Recieve Any Treatments: Yes What Type of Treatment Did You: Surgical Intervention Psychosocial: Yes Anxiety, Depression Integumentary: Yes (HX- NECROTIZING FASCITIS IN 1989;PILONIDAL CYST/ABSCESS;BARTHOLIN'S ABSCESS) Blood Disorders: No Family Medical History Heart Disease, Diabetes, Hypertension, Other Conditions/Hx PAST SURGICAL /PROCEDURAL HISTORY: -FLEXIBLE SIGMOIDOSCOPY 10/2013 -GASTRIC BYPASS -THYROIDECTOMY 2009 -CHOLECYSTECTOMY - PANICULECTOMY Physical Exam Vital Signs Vital Signs - First Documented 01/05/22 14:30 Temp 37.0 Pulse 91 Resp 16 B/P (MAP) 80/36 (51) Pulse Ox 99 O2 Delivery Nasal Cannula O2 Flow Rate 2.00 Capillary Refill : Height, Weight, BMI Height: 5'1.00" Weight: 298lbs. 2.0oz. 135.950886gj; 35.00 BMI Method:Stated General Appearance: No Apparent Distress, Chronically ill Eyes: Bilateral Eye Normal Inspection, Bilateral Eye PERRL, Bilateral Eye Conjunctivae Pale HEENT: Moist Mucous Membranes, Pale Conjunctivae (L), Pale Conjunctivae (R), Other (dry mucous membranes ) Neck: Full Range of Motion, Normal Inspection, Non Tender Respiratory: Lungs Clear, Normal Breath Sounds, No Accessory Muscle Use Cardiovascular: Regular Rate, Rhythm, No Gallop, Normal Peripheral Pulses, Other (left pedal edema ) Gastrointestinal: Normal Bowel Sounds, Non Tender, Soft Extremity: Normal Inspection, Pedal Edema Neurologic/Psychiatric: Alert, Oriented x3, No Motor/Sensory Deficits, Normal Mood/Affect Skin: Cool, Pallor Lymphatic: No Adenopathy Focused Exam Lactate Level 01/05/22 15:27: Lactic Acid Level 0.62 Lactic Acid Level Laboratory Tests Test 01/05/22 15:27 Lactic Acid Level 0.62 MMOL/L (0.50-2.00) Progress/Results/Core Measures Suspected Sepsis SIRS Temperature: Pulse: Respiratory Rate: Laboratory Tests 01/05/22 14:03: White Blood Count 12.9H Blood Pressure / Mean: 01/05/22 15:27: Lactic Acid Level 0.62 Laboratory Tests 01/05/22 14:03: Platelet Count 106L 01/05/22 15:27: Creatinine 3.26H, INR Comment 1.7H, Total Bilirubin 0.4 Results/Orders Lab Results Laboratory Tests Test 01/05/22 14:03 01/05/22 15:05 01/05/22 15:27 Range/Units White Blood Count 12.9 H 4.3-11.0 10^3/uL Red Blood Count 2.18 L 3.80-5.11 10^6/uL Hemoglobin 6.9 *L 11.5-16.0 g/dL Hematocrit 22 L 35-52 % Mean Corpuscular Volume 99 80-99 fL Mean Corpuscular Hemoglobin 32 25-34 pg Mean Corpuscular Hemoglobin Concent 32 32-36 g/dL Red Cell Distribution Width 18.3 H 10.0-14.5 % Platelet Count 106 L 130-400 10^3/uL Mean Platelet Volume 12.2 9.0-12.2 fL Immature Granulocyte % (Auto) 1 % Neutrophils (%) (Auto) 73 42-75 % Lymphocytes (%) (Auto) 19 12-44 % Monocytes (%) (Auto) 6 0-12 % Eosinophils (%) (Auto) 1 0-10 % Basophils (%) (Auto) 0 0-10 % Neutrophils # (Auto) 9.4 H 1.8-7.8 10^3/uL Lymphocytes # (Auto) 2.4 1.0-4.0 10^3/uL Monocytes # (Auto) 0.8 0.0-1.0 10^3/uL Eosinophils # (Auto) 0.1 0.0-0.3 10^3/uL Basophils # (Auto) 0.0 0.0-0.1 10^3/uL Immature Granulocyte # (Auto) 0.2 H 0.0-0.1 10^3/uL Urine Color YELLOW Urine Clarity CLOUDY Urine pH 8.0 5-9 Urine Specific [place] 1.015 L 1.016-1.022 Urine Protein 3+ H NEGATIVE Urine Glucose (UA) NEGATIVE NEGATIVE Urine Ketones TRACE H NEGATIVE Urine Nitrite NEGATIVE NEGATIVE Urine Bilirubin 1+ H NEGATIVE Urine Urobilinogen 0.2 < = 1.0 MG/DL Urine Leukocyte Esterase 2+ H NEGATIVE Urine RBC (Auto) 3+ H NEGATIVE Urine RBC 10-25 H /HPF Urine WBC 10-25 H /HPF Urine Crystals NONE /LPF Urine Bacteria LARGE H /HPF Urine Casts NONE /LPF Urine Mucus NEGATIVE /LPF Urine Culture Indicated YES Prothrombin Time 20.2 H 12.2-14.7 SEC INR Comment 1.7 H 0.8-1.4 Activated Partial Thromboplast Time 49 H 24-35 SEC Sodium Level 137 135-145 MMOL/L Potassium Level 2.0 *L 3.6-5.0 MMOL/L Chloride Level 101 98-107 MMOL/L Carbon Dioxide Level 23 21-32 MMOL/L Anion Gap 13 5-14 MMOL/L Blood Urea Nitrogen 11 7-18 MG/DL Creatinine 3.26 H 0.60-1.30 MG/DL Estimat Glomerular Filtration Rate 15 BUN/Creatinine Ratio 3 Glucose Level 136 H 70-105 MG/DL Lactic Acid Level 0.62 0.50-2.00 MMOL/L Calcium Level 7.1 L 8.5-10.1 MG/DL Corrected Calcium 8.7 8.5-10.1 MG/DL Magnesium Level 1.6 1.6-2.4 MG/DL Total Bilirubin 0.4 0.1-1.0 MG/DL Aspartate Amino Transf (AST/SGOT) 18 5-34 U/L Alanine Aminotransferase (ALT/SGPT) 15 0-55 U/L Alkaline Phosphatase 57 40-136 U/L Total Protein 5.3 L 6.4-8.2 GM/DL Albumin 2.0 L 3.2-4.5 GM/DL My Orders Orders - TAMAR BANDA APRN Cbc With Automated Diff (01/05/22 14:40) Comprehensive Metabolic Panel (01/05/22 14:40) Blood Culture (01/05/22 14:40) Sputum Culture (01/05/22 14:40) Urinalysis (01/05/22 14:40) Protime With Inr (01/05/22 14:40) Partial Thromboplastin Time (01/05/22 14:40) Chest 1 View, Ap/Pa Only (01/05/22 14:40) Ed Iv/Invasive Line Start (01/05/22 14:40) Vital Signs Adult Sepsis Patie Q15M (01/05/22 14:40) O2 (01/05/22 14:40) Remove Rings In Anticipation O (01/05/22 14:40) Lactic Acid Analyzer (01/05/22 14:40) Ns Iv 500 Ml (Sodium Chloride 0.9%) (01/05/22 14:45) Urine Culture (01/05/22 15:05) Cefepime Injection (Maxipime Injection) (01/05/22 15:30) Midodrine Tablet (Proamatine) (01/05/22 16:00) Potassium Cl 10meq/50ml Ivpb (Kcl 10 Meq (01/05/22 16:00) Ns Iv 500 Ml (Sodium Chloride 0.9%) (01/05/22 18:45) Potassium Cl 10meq/50ml Ivpb (Kcl 10 Meq (01/05/22 19:00) Magnesium (01/05/22 19:26) Adenosine Injection (Adenocard Injection (01/05/22 19:26) Adenosine Injection (Adenocard Injection (01/05/22 19:47) Ekg Tracing (01/05/22 20:30) Medications Given in ED Current Medications Medications Dose Ordered Sig/Tiffany Route Start Time Stop Time Status Last Admin Dose Admin Cefepime HCl 1000 mg/Sodium Chloride 50 ml @ 100 mls/hr ONCE ONCE IV 01/05/22 15:30 01/05/22 15:59 DC 01/05/22 16:12 100 MLS/HR Midodrine 5 mg ONCE ONCE PO 01/05/22 16:00 01/05/22 16:01 DC 01/05/22 16:40 5 MG Potassium Chloride 50 ml @ 50 mls/hr ONCE ONCE IV 01/05/22 16:00 01/05/22 16:59 DC 01/05/22 16:43 50 MLS/HR Potassium Chloride 50 ml @ 50 mls/hr ONCE ONCE IV 01/05/22 19:00 01/05/22 19:59 DC 01/05/22 19:12 50 MLS/HR Sodium Chloride 500 ml @ 30 mls/hr [id number] ONCE IV 01/05/22 14:45 01/05/22 19:15 DC 01/05/22 14:59 30 MLS/HR Sodium Chloride 500 ml @ 0 mls/hr Q0M ONCE IV 01/05/22 18:45 01/05/22 18:46 DC 01/05/22 19:12 500 MLS/HR Vital Signs/I&O 01/05/22 01/05/22 14:30 20:07 Temp 37.0 Pulse 91 94 Resp 16 18 B/P (MAP) 80/36 (51) 91/54 Pulse Ox 99 100 O2 Delivery Nasal Cannula Nasal Cannula O2 Flow Rate 2.00 2.00 Capillary Refill : Progress Note : Progress Note Upon arrival patient is pale, awake and alert. Her only complaint at this time is that she has generalized weakness. Her sister presented to the ER with her and confirmed that the patient does appear more pale and has increased weakness compared to her baseline. On arrival her oxygen was 99% on 2 L. Her SBP was in the 80/36. care home reports recent UTI, pending culture results before treating. Orders placed for Sepsis work-up due to history of UTI and hypotension. Sister states she has very low blood pressures to begin with and takes Midodrine 5mg PO 3 times daily. On her MAR from the custodial they held her 1400 dose of Midodrine. Additionally she is noted to be taking Eliquis 2.5 mg p.o. twice daily. BP increased to 101/51 after NS 500ml bolus. Orders placed to give her Midodrine 5mg. She is still awake, alert very responsive. She's noted to drop on her oxygen saturation to 80's when she sleeps. She is noted to be a mouth breather however whenever you wake her, her oxygen will increase back up to 99-100% on 2 L. Patient sister states that she has very low blood pressure all the time and that is why she is on Midodrine 3 times a day, Otherwise she is unable to complete dialysis. States the last time she did not receive her midodrine prior to dialysis she ended up in the hospital. Labs and imaging reviewed. She is noted to be anemic with a hemoglobin of 6.9, unsure if this is due to anemia of chronic disease versus her Eliquis. She is also hypokalemic with potassium 2.0. Her lactic acid within normal limits. We will go ahead and treat with cefepime to cover pneumonia and her UTI, orders placed for potassium flashes will give in 10 mEq increments. Discussed labs and imaging with sister and patient, they would like to transfer to [place] as this is where most of her care has been provided. 1600: Called [place] transfer line at this time to request medical telemetry bed. Information taken, currently awaiting return call. 1624: [place] transfer line called with additional questions, states the hospitalist would like to know if the patient has a diagnosis of ESRD and why the patient needs transferred at this time. Would also like to know why we believe the patient requires hemodialysis at this time. Discussed with the tra nsfer line that the patient does not require hemodialysis at this time as she just had it yesterday and is not due till Friday. However with her anemia of unknown origin and pneumonia she will likely require multiple days in the hospital and we do not have dialysis services. She would unlikely be able to receive dialysis on Friday when she is due. 1649: [place] transfer line called back with additional questions. States that Dr. Marshall would like to know why we are unable to give the patient antibiotics a t this facility. Reiterated that the patient did receive antibiotics, however we do not have dialysis services and she will require multiple days of hospital care she will need to be transferred to dialysis capable facility. Transfer line states that they will relay message. 1758: Due to inability to make contact with hospitalist at [facility] opted to call [facility] for possible transfer so we can facilitate getting this patient to a higher level of care. 1814: Reviewed case with Dr. Cooper at [facility], she accepted transfer to medical telemetry bed. Throughout the remainder of the patient's stay she continued to be alert and oriented. Her blood pressure would range from lower 90s, to the 80s, with an occasional 70 systolic. She is not due for her next dose of midodrine until 10 PM. Would recommend going ahead and giving her next dose when due. She has be en given a total of 1 L saline bolus we will go ahead and maintain IV fluids for her transfer to continue to support her blood pressure. ECG Initial ECG Impression Date: Jan 05, 2022 Initial ECG Impression Time: 20:22 Initial ECG Rate: 86 Initial ECG Rhythm: Normal Sinus Initial ECG Intervals: Normal Initial ECG Impression: Normal, Nonspecific Changes Diagnostic Imaging Diagonstic Imaging: Xray Plain Films/CT/US/NM/MRI: chest Comments [facility] [place] NAME: [facility] REC#: [id number] PT STATUS: REG ER : 1955 PHYSICIAN: TAMAR BANDA [employer] ADMIT DATE: 01/05/22/ER Draft Date of Exam:01/05/22 CHEST 1 VIEW, AP/PA ONLY INDICATION: Sepsis. EXAMINATION: Chest, 01/05/2022. COMPARISON: 11/12/2021. FINDINGS: There is a dual-lumen catheter on the right stable from previous imaging. There is cardiomegaly. Pulmonary vascular congestion is noted, new since previous imaging. There is a likely infiltrate at the left lung base with adjacent pleural fluid. Right lung clear. IMPRESSION: 1. Left base infiltrate with adjacent small effusion. 2. Pulmonary vascular congestion. Dictated on workstation # [id number] Dict: 01/05/22 1604 Trans: 01/05/22 1610 [facility] [id number] Interpreted by: DEMARIO ROBLES MD Electronically signed by: Departure Impression Primary Impression: Anemia Additional Impressions: Pneumonia UTI (urinary tract infection) Hypokalemia ESRD (end stage renal disease) on dialysis Disposition: XF SHT-TRM HOSP Condition: Stable Transfer Transfer Reason: Exceeds level of care Time Spoke to Accepting Phy: 17:[address] Cooper accepted patient for medical surgical telemetry. Transfer Time: 18:44 Transfer Facility: [facility] Method of Transfer: EMS Departure-Patient Inst. Referrals: ROBINSON KIM DO (PCP/Family) Primary Care Physician TAMAR BANDA APRN Jan 05, 2022 14:59
[2022-01-05 15:12] LABS: BILIRUBIN,URINE 1+ (NEGATIVE); CLARITY,URINE CLOUDY; COLOR,URINE YELLOW; GLUCOSE, URINE (UA) NEGATIVE (NEGATIVE); KETONES,URINE TRACE (NEGATIVE); LEUKOCYTE ESTERASE ,URINE 2+ (NEGATIVE); NITRITE,URINE NEGATIVE (NEGATIVE); PROTEIN,URINE 3+ (NEGATIVE)
[2022-01-05 15:21] LABS: BACTERIA,URINE LARGE /HPF
[2022-01-05 15:30] LABS: BASOPHILS % (AUTO) 0 % (0-10); EOSINOPHILS # (AUTO) 0.1 10^3/uL (0.0-0.3); EOSINOPHILS % (AUTO) 1 % (0-10); HEMATOCRIT 22 % (35-52); LYMPHOCYTES # (AUTO) 2.4 10^3/uL (1.0-4.0); LYMPHOCYTES % (AUTO) 19 % (12-44); MEAN CORPUSCULAR HEMOGLOBIN 32 pg (25-34); MEAN CORPUSCULAR HGB CONC 32 g/dL (32-36); MEAN CORPUSCULAR VOLUME 99 fL (80-99); MEAN PLATELET VOLUME 12.2 fL (9.0-12.2); MONOCYTES # (AUTO) 0.8 10^3/uL (0.0-1.0); MONOCYTES % (AUTO) 6 % (0-12); NEUTROPHILS # (AUTO) 9.4 10^3/uL (1.8-7.8); NEUTROPHILS % (AUTO) 73 % (42-75); PLATELET COUNT 106 10^3/uL (130-400); WHITE BLOOD COUNT 12.9 10^3/uL (4.3-11.0)
[2022-01-05] MEDS ORDERED: CEFEPIME INJECTION 1,000 MG in NS (IVPB) 50 ML IV ONE (15:30)
[2022-01-05 15:32] LABS: HEMOGLOBIN 6.9 g/dL (11.5-16.0)
[2022-01-05 15:49] LABS: INR 1.7 (0.8-1.4); PROTHROMBIN TIME PATIENT 20.2 SEC (12.2-14.7)
[2022-01-05 15:50] LABS: CALCIUM 7.1 MG/DL (8.5-10.1)
[2022-01-05 15:51] LABS: TOTAL PROTEIN 5.3 GM/DL (6.4-8.2)
[2022-01-05 15:53] LABS: BILIRUBIN,TOTAL 0.4 MG/DL (0.1-1.0)
[2022-01-05 15:55] LABS: CREATININE SERUM 3.26 MG/DL (0.60-1.30)
[2022-01-05] MEDS ORDERED: MIDODRINE 10 MG (PROAMATINE) TAB PO ONE (16:00)
[2022-01-05] MEDS ORDERED: POTASSIUM CL 10MEQ/50ML IVPB 50 ML IV ONE ×2 (16:00→19:00)
--- NOTE | 2022-01-05 16:10 | Diagnostic Imaging Report ---
INDICATION: Sepsis. EXAMINATION: Chest, 01/05/2022. COMPARISON: 11/12/2021. FINDINGS: There is a dual-lumen catheter on the right stable from previous imaging. There is cardiomegaly. Pulmonary vascular congestion is noted, new since previous imaging. There is a likely infiltrate at the left lung base with adjacent pleural fluid. Right lung clear. IMPRESSION: 1. Left base infiltrate with adjacent small effusion. 2. Pulmonary vascular congestion. Dictated by: Dictated on workstation # [id number]
[2022-01-05] MEDS ORDERED: ADENOSINE 6 MG/2 ML (ADENOCARD) VIAL IV ONE ×2 (19:26→19:47)
[2022-01-05 20:07] VITALS: BP 91/54
== END 2022-01-05 20:59 | disposition short-term general hospital (02) ==
LOC: EDUNIT# 14:30 → ER 14:31
DX: D64.9 Anemia, unspecified (principal); J18.9 Pneumonia, unspecified organism; N39.0 Urinary tract infection, site not specified; E87.6 Hypokalemia; N18.6 End stage renal disease; E66.01 Morbid (severe) obesity due to excess calories; Z68.35 Body mass index [BMI] 35.0-35.9, adult
CPT/HCPCS: 36415; 71045; 80053; 81000; 83605; 83735; 85025; 85610; 85730; 87040; 87077; 87088; 87186; 93005

== ENCOUNTER 2022-01-17 23:29 | Emergency (ER) | payer MEDICARE ==
[~2022-01-17] VITALS: Ht 155 cm; Wt 135.0 kg
--- NOTE | 2022-01-17 23:48 | ED General ---
General Chief Complaint: Altered Mental Status Stated Complaint: AMS Source of Information: Patient, EMS, Residential Records, Other (called [facility] nurse, Mariza) Exam Limitations: No Limitations History of Present Illness Date Seen by Provider: Jan 17, 2022 Time Seen by Provider: 23:30 Initial Comments 66-year-old female with past medical history of ESRD on HD (M,W,F), chronic hypoxic respiratory failure (fci states has been weaned to room air recently, but wears up to 4L O2), HTN, DM, HLD, hypothyroid coming in via EMS from the [facility] for altered mental status and worsening work of breathing. She was admitted back to the [facility] from [facility] in [place] on January 15. She finished out 2 days of meropenem yesterday. Patient is normally alert and oriented x3 and holds conversation well. Today disoriented and becoming more confused. Urinalysis consistent with infection per fci report. They were going to start ceftriaxone, but she worsen so they referred her here instead. They states she has been on room air with oxygen in the 90s, and that she was in the high 80s earlier. No fever, she is denying chest pain, abdominal pain, nausea, vomiting, diarrhea, weakness, numbness, or any other concerns. Allergies and Home Medications Allergies Coded Allergies: No Known Allergies (Verified Allergy, Unknown, 03/06/21) adhesive tape (Unverified Adverse Reaction, Unknown, 11/19/17) Patient Home Medication List Home Medication List Reviewed: Yes ALPRAZolam (Xanax Tablet) 0.25 Mg Tab, 0.25 MG PO Q6H PRN for ANXIETY Prescribed by: BARB GUIDRY on 10/13/21 1005 Atorvastatin Calcium (Atorvastatin Calcium) 20 Mg Tablet, 20 MG PO DAILY, (Reported) Entered as Reported by: KEVIN LAW on 03/06/21 1416 Benzocaine/Menthol (Dermoplast Pain Relieving Fletcher) 78 Gm Aerosol, 1 EA TP TID PRN for pain Prescribed by: JOSE RENDON on 03/09/21 0837 Buspirone HCl (Buspirone HCl) 5 Mg Tablet, 5 MG PO TID PRN for ANXIETY, (Reported) Entered as Reported by: CON MONTANO on 10/12/21 2228 Calcium Acetate (Calcium Acetate) 667 Mg Capsule, 667 MG PO TIDWM Prescribed by: BARB GUIDRY on 10/13/21 100 Furosemide (Furosemide) 40 Mg Tablet, 40 MG PO BID Prescribed by: BARB GUIDRY on 10/13/21 100 Glipizide (Glipizide ER) 5 Mg Tab.er.24, 5 MG PO DAILY, (Reported) Entered as Reported by: SARKIS CHRISTINA on 05/27/21 0850 Hydroxyzine HCl (Hydroxyzine HCl) 10 Mg Tablet, 10 MG PO DAILY, (Reported) Entered as Reported by: CON MONTANO on 10/12/212227 Iron (Iron) 18 Mg Tablet, 18 MG PO DAILY, (Reported) Entered as Reported by: CON MONTANO on 10/12/212227 Latanoprost (Xalatan) 2.5 Ml Drops, 1 DROP OU HS, (Reported) Entered as Reported by: KEVIN LAW on 03/06/211415 Levothyroxine Sodium (Levothyroxine Sodium) 175 Mcg Tablet, 175 MCG PO DAILY, (Reported) Entered as Reported by: KEVIN LAW on 03/06/211415 Metolazone (Metolazone) 2.5 Mg Tablet, 2.5 MG PO PRN, (Reported) Entered as Reported by: CON MONTANO on 10/12/212227 Metoprolol Tartrate (Metoprolol Tartrate) 50 Mg Tablet, 50 MG PO BID WITH MEALS, (Reported) Entered as Reported by: CON MONTANO on 10/12/212227 Mirtazapine (Mirtazapine) 15 Mg Tablet, 15 MG PO HS, (Reported) Entered as Reported by: KEVIN LAW on 03/06/21 141 Sodium Bicarbonate (Sodium Bicarbonate) 650 Mg Tablet, 1,300 MG PO TID Prescribed by: BARB GUIDRY on 10/13/21 100 Tizanidine HCl (Tizanidine HCl) 4 Mg Tablet, 4 MG PO BID PRN for MUSCLE SPASMS, (Reported) Entered as Reported by: KEVIN LAW on 03/06/21 141 Review of Systems Review of Systems Constitutional: No chills, No fever EENTM: No blurred vision Respiratory: No cough; short of breath Cardiovascular: No chest pain Gastrointestinal: No abdominal pain Psychiatric/Neurological: Other (confusion) Hematologic/Lymphatic: No Symptoms Reported Immunological/Allergic: no symptoms reported All Other Systems Reviewed Negative Unless Noted: Yes Past Cvcvjxq-Xkjtcv-Csocxr Hx Patient Social History Tobacco Use?: No Substance use?: No Alcohol Use?: No Pt feels they are or have been: No Immunizations Up To Date Tetanus Booster (TDap): Less than 5yrs PED Vaccines UTD: Yes First/Initial COVID19 Vaccinat: JANUARY 2021 Second COVID19 Vaccination Portillo: 07/10 Third COVID19 Vaccination Date: JUN 2021 Seasonal Allergies Seasonal Allergies: No Past Medical History Surgery/Hospitalization HX: THYROIDECTOMY 2009 FLEXIBLE SIGMOIDOSCOPY 10/2013 GASTRIC BYPASS CHOLECYSTECTOMY MULTIPLE I&D'S OF ABSCESSES, INCLUDING PILONIDAL CYST/ABSCESS MULTIPLE DEBRIDEMENTS OF NECROTIZING FASCITIS STAGE 4 CKD HD MWF Surgeries: Yes (PILONIDAL CYST/ABSCESS;MULTIPLE DEBRIDEMENTS FOR NECROTIZING FASCITIS; ) Abdominal, Gallbladder, Thyroidectomy Respiratory: No Currently Using CPAP: No Currently Using BIPAP: No Cardiac: Yes High Cholesterol, Hypertension Neurological: Yes Neuropathy Reproductive Disorders: No Female Reproductive Disorders: Denies 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 HIV/AIDS: No Genitourinary: Yes (STAGE 4 RENAL FAILURE--NO DIALYSIS) Renal Failure Gastrointestinal: Yes (GASTRIC BYPASS) Musculoskeletal: Yes (CHRONIC GENERALIZED PAIN ) Arthritis, Chronic Back Pain Endocrine: Yes (THYROID CANCER;MORBID OBESITY) Hypothyroidsim, Diabetes, Non-Insulin dep HEENT: No Loss of Vision: Denies Hearing Impairment: Denies Cancer: Yes Thyroid Did You Recieve Any Treatments: Yes What Type of Treatment Did You: Surgical Intervention Psychosocial: Yes Anxiety, Depression Integumentary: Yes (HX- NECROTIZING FASCITIS IN 1989;PILONIDAL CYST/ABSCESS;BARTHOLIN'S ABSCESS) Blood Disorders: No Family Medical History Heart Disease, Diabetes, Hypertension, Other Conditions/Hx PAST SURGICAL /PROCEDURAL HISTORY: -FLEXIBLE SIGMOIDOSCOPY 10/2013 -GASTRIC BYPASS -THYROIDECTOMY 2009 -CHOLECYSTECTOMY - PANICULECTOMY Physical Exam Vital Signs Vital Signs - First Documented 01/17/22 23:29 Temp 36.4 Pulse 101 Resp 20 B/P (MAP) 117/85 (96) Pulse Ox 100 O2 Delivery Nasal Cannula O2 Flow Rate 2.00 Capillary Refill : Height, Weight, BMI Height: 5'1.00" Weight: 298lbs. 2.0oz. 135.602481bs; 41.00 BMI Method:Stated General Appearance: No Apparent Distress, WD/WN Eyes: Bilateral Eye Normal Inspection, Bilateral Eye PERRL HEENT: PERRL/EOMI, TMs Normal, Normal ENT Inspection, Pharynx Normal Neck: Full Range of Motion, Normal Inspection, Non Tender, Supple Respiratory: Chest Non Tender, No Accessory Muscle Use, No Respiratory Distress, Crackles Cardiovascular: Regular Rate, Rhythm, No Edema, Normal Peripheral Pulses Gastrointestinal: Normal Bowel Sounds, Non Tender, Soft; No Distended, No Guarding Back: Normal Inspection, No CVA Tenderness, No Vertebral Tenderness Extremity: Normal Capillary Refill, Normal Inspection, Normal Range of Motion, Non Tender, No Calf Tenderness, No Pedal Edema Neurologic/Psychiatric: Alert, No Motor/Sensory Deficits, Normal 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, 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 Norm as Tested, Disoriented Skin: Normal Color, Warm/Dry Lymphatic: No Adenopathy Focused Exam Lactate Level 01/17/22 23:45: Lactic Acid Level 0.98 Lactic Acid Level Laboratory Tests Test 01/17/22 23:45 Lactic Acid Level 0.98 MMOL/L (0.50-2.00) Progress/Results/Core Measures Suspected Sepsis SIRS Temperature: Pulse: Respiratory Rate: Laboratory Tests 01/17/22 23:45: White Blood Count 13.3H Blood Pressure / Mean: 01/17/22 23:45: Lactic Acid Level 0.98 Laboratory Tests 01/17/22 23:45: Creatinine 3.86H, INR Comment 1.3, Platelet Count 84L, Total Bilirubin 0.5 Results/Orders Lab Results Laboratory Tests Test 01/17/22 23:45 01/17/22 23:50 Range/Units White Blood Count 13.3 H 4.3-11.0 10^3/uL Red Blood Count 2.76 L 3.80-5.11 10^6/uL Hemoglobin 8.9 L 11.5-16.0 g/dL Hematocrit 28 L 35-52 % Mean Corpuscular Volume 103 H 80-99 fL Mean Corpuscular Hemoglobin 32 25-34 pg Mean Corpuscular Hemoglobin Concent 31 L 32-36 g/dL Red Cell Distribution Width 23.2 H 10.0-14.5 % Platelet Count 84 L 130-400 10^3/uL Mean Platelet Volume 13.8 H 9.0-12.2 fL Immature Granulocyte % (Auto) 3 % Neutrophils (%) (Auto) 79 H 42-75 % Lymphocytes (%) (Auto) 11 L 12-44 % Monocytes (%) (Auto) 7 0-12 % Eosinophils (%) (Auto) 1 0-10 % Basophils (%) (Auto) 0 0-10 % Neutrophils # (Auto) 10.5 H 1.8-7.8 10^3/uL Lymphocytes # (Auto) 1.4 1.0-4.0 10^3/uL Monocytes # (Auto) 0.9 0.0-1.0 10^3/uL Eosinophils # (Auto) 0.1 0.0-0.3 10^3/uL Basophils # (Auto) 0.0 0.0-0.1 10^3/uL Immature Granulocyte # (Auto) 0.3 H 0.0-0.1 10^3/uL Prothrombin Time 16.2 H 12.2-14.7 SEC INR Comment 1.3 0.8-1.4 Activated Partial Thromboplast Time 39 H 24-35 SEC Sodium Level 139 135-145 MMOL/L Potassium Level 3.2 L 3.6-5.0 MMOL/L Chloride Level 102 98-107 MMOL/L Carbon Dioxide Level 23 21-32 MMOL/L Anion Gap 14 5-14 MMOL/L Blood Urea Nitrogen 19 H 7-18 MG/DL Creatinine 3.86 H 0.60-1.30 MG/DL Estimat Glomerular Filtration Rate 12 BUN/Creatinine Ratio 5 Glucose Level 298 H 70-105 MG/DL Lactic Acid Level 0.98 0.50-2.00 MMOL/L Calcium Level 7.1 L 8.5-10.1 MG/DL Corrected Calcium 8.3 L 8.5-10.1 MG/DL Total Bilirubin 0.5 0.1-1.0 MG/DL Aspartate Amino Transf (AST/SGOT) 17 5-34 U/L Alanine Aminotransferase (ALT/SGPT) 16 0-55 U/L Alkaline Phosphatase 62 40-136 U/L Troponin I 0.066 H <0.028 NG/ML B-Type Natriuretic Peptide 162.9 H <100.0 PG/ML Total Protein 5.2 L 6.4-8.2 GM/DL Albumin 2.5 L 3.2-4.5 GM/DL Urine Color YELLOW Urine Clarity CLOUDY Urine pH 5.5 5-9 Urine Specific [place] 1.025 H 1.016-1.022 Urine Protein 2+ H NEGATIVE Urine Glucose (UA) NEGATIVE NEGATIVE Urine Ketones TRACE H NEGATIVE Urine Nitrite NEGATIVE NEGATIVE Urine Bilirubin 1+ H NEGATIVE Urine Urobilinogen 0.2 < = 1.0 MG/DL Urine Leukocyte Esterase 2+ H NEGATIVE Urine RBC (Auto) 3+ H NEGATIVE Urine RBC 10-25 H /HPF Urine WBC >100 H /HPF Urine Crystals NONE /LPF Urine Bacteria TRACE /HPF Urine Casts NONE /LPF Urine Mucus LARGE H /LPF Urine Yeast LARGE H /HPF Urine Culture Indicated CULTURE PENDING My Orders Orders - KASSANDRA ANDREWS MD Cbc With Automated Diff (01/17/22 23:39) Comprehensive Metabolic Panel (01/17/22 23:39) Blood Culture (01/17/22 23:39) Urinalysis (01/17/22 23:39) Urine Culture (01/17/22 23:39) Protime With Inr (01/17/22 23:39) Partial Thromboplastin Time (01/17/22 23:39) Chest 1 View, Ap/Pa Only (01/17/22 23:39) Ed Iv/Invasive Line Start (01/17/22 23:39) Ed Iv/Invasive Line Start (01/17/22 23:39) Ekg Tracing (01/17/22 23:39) Troponin I Bibb (01/17/22 23:39) Vital Signs Adult Sepsis Patie Q15M (01/17/22 23:39) O2 (01/17/22 23:39) Remove Rings In Anticipation O (01/17/22 23:39) Lactic Acid Analyzer (01/17/22 23:39) Ct Head Wo (01/17/22 23:39) Catheter(Urinary) Insert & Ass 03,15 (01/17/22 23:39) Bnp Tone (01/17/22 23:53) Ceftriaxone 1 Gm Pre-Mix (Rocephin 1 Gm (01/18/22 00:15) Medications Given in ED Current Medications Medications Dose Ordered Sig/Tiffany Route Start Time Stop Time Status Last Admin Dose Admin Ceftriaxone Sodium/Dextrose 50 ml @ 100 mls/hr ONCE ONCE IV 01/18/22 00:15 01/18/22 00:44 DC 01/18/22 00:25 100 MLS/HR Vital Signs/I&O 01/17/22 01/17/22 23:29 23:30 Temp 36.4 Pulse 101 Resp 20 B/P (MAP) 117/85 (96) Pulse Ox 100 O2 Delivery Nasal Cannula Nasal Cannula O2 Flow Rate 2.00 2.00 Capillary Refill : Progress Note : Progress Note 66-year-old female with above history coming in due to confusion and worsening oxygenation. ABCs were intact and vitals were stable on presentation. Physical exam with her being disoriented and confused to questioning, but no focal neurological deficits otherwise. EKG with sinus tachycardia and no acute changes from prior. Hillman was placed with almost purulent urine coming out. Labs significant for elevated white blood cell count around 13.3, UA with >100 WBCs and positive for leukocyte esterase, elevated creatinine near her baseline, BUN around 18, potassium level was low around 3.2 which is acceptable given her ESRD, slight bump in troponin which is likely a type II NSTEMI in the setting of her sepsis and increase in demand, lactate normal, CT head with the overnight radiology read negative for anything acute. Chest x-ray similar to prior with some vascular congestion and potentially infiltrate in the left lobe. She was given IV ceftriaxone. ECG Initial ECG Impression Date: Jan 17, 2022 Initial ECG Impression Time: 23:39 Initial ECG Rate: 101 Initial ECG Rhythm: S.Tach Comment Normal axis, narrow QRS, no significant ST elevation Departure Impression Primary Impression: Sepsis Qualified Codes: A41.9 - Sepsis, unspecified organism; R65.20 - Severe sepsis without septic shock; G93.40 - Encephalopathy, unspecified Additional Impressions: UTI (urinary tract infection) Qualified Codes: N39.0 - Urinary tract infection, site not specified ESRD (end stage renal disease) Elevated troponin Disposition: XFER SHT-TRM HOSP Condition: Stable Admissions Decision to Admit/Date: Jan 18, 2022 Time/Decision to Admit Time: 00:10 Transfer Transfer Reason: Exceeds level of care Time Spoke to Accepting Phy: 01:15 Transfer Progress Notes Called Concepción Marsh at 0020 and am awaiting callback by accepting physician. Called back again at 01:10 and they have been trying to get ahold of the doctor. Dr. Jiménez called back and is the accepting physician Transfer Time: 01:20 Transfer Facility: [facility] Method of Transfer: EMS Departure-Patient Inst. Referrals: ROBINSON KIM DO (PCP/Family) Primary Care Physician KASSANDRA ANDREWS MD Jan 17, 2022 23:47
[2022-01-17 23:56] LABS: BASOPHILS % (AUTO) 0 % (0-10); EOSINOPHILS # (AUTO) 0.1 10^3/uL (0.0-0.3); EOSINOPHILS % (AUTO) 1 % (0-10); HEMATOCRIT 28 % (35-52); HEMOGLOBIN 8.9 g/dL (11.5-16.0); LYMPHOCYTES # (AUTO) 1.4 10^3/uL (1.0-4.0); LYMPHOCYTES % (AUTO) 11 % (12-44); MEAN CORPUSCULAR HEMOGLOBIN 32 pg (25-34); MEAN CORPUSCULAR HGB CONC 31 g/dL (32-36); MEAN CORPUSCULAR VOLUME 103 fL (80-99); MEAN PLATELET VOLUME 13.8 fL (9.0-12.2); MONOCYTES # (AUTO) 0.9 10^3/uL (0.0-1.0); MONOCYTES % (AUTO) 7 % (0-12); NEUTROPHILS # (AUTO) 10.5 10^3/uL (1.8-7.8); NEUTROPHILS % (AUTO) 79 % (42-75); PLATELET COUNT 84 10^3/uL (130-400); WHITE BLOOD COUNT 13.3 10^3/uL (4.3-11.0)
[2022-01-17 23:59] LABS: BILIRUBIN,URINE 1+ (NEGATIVE); CLARITY,URINE CLOUDY; COLOR,URINE YELLOW; GLUCOSE, URINE (UA) NEGATIVE (NEGATIVE); KETONES,URINE TRACE (NEGATIVE); LEUKOCYTE ESTERASE ,URINE 2+ (NEGATIVE); NITRITE,URINE NEGATIVE (NEGATIVE); PH,URINE 5.5 (5-9); PROTEIN,URINE 2+ (NEGATIVE)
[2022-01-18 00:09] LABS: BACTERIA,URINE TRACE /HPF; WBC,URINE >100 /HPF; YEAST,URINE LARGE /HPF
[2022-01-18 00:10] LABS: INR 1.3 (0.8-1.4); PROTHROMBIN TIME PATIENT 16.2 SEC (12.2-14.7)
[2022-01-18] MEDS ORDERED: cefTRIAXone 1 GM PRE-MIX 50 ML IV ONE (00:15)
[2022-01-18 00:20] LABS: ALBUMIN 2.5 GM/DL (3.2-4.5); BILIRUBIN,TOTAL 0.5 MG/DL (0.1-1.0); CALCIUM 7.1 MG/DL (8.5-10.1); CREATININE SERUM 3.86 MG/DL (0.60-1.30); POTASSIUM 3.2 MMOL/L (3.6-5.0); TOTAL PROTEIN 5.2 GM/DL (6.4-8.2)
[2022-01-18 01:45] VITALS: BP 91/63
--- NOTE | 2022-01-18 05:54 | Diagnostic Imaging Report ---
PROCEDURE: CT head without contrast. TECHNIQUE: Multiple contiguous axial images were obtained through the brain without the use of intravenous contrast. Auto Exposure Controls were utilized during the CT exam to meet ALARA standards for radiation dose reduction. INDICATION: Altered mental status, confusion COMPARISON: 03/03/2019 FINDINGS: Mild atrophy. No intracranial hemorrhage. No intracranial mass, mass effect, midline shift, herniation, hydrocephalus, or extra-axial fluid collection. Minimal mineralization within the right basal ganglia is again identified. No CT evidence of an acute ischemic infarction. The orbits are unremarkable. Hyperostosis frontalis interna is again identified. The calvarium appears intact. Opacification of the right mastoid air cells and right middle ear cavity is noted. Otherwise, the paranasal sinuses are clear. IMPRESSION: Opacification of the right mastoid air cells and middle ear cavity, which may relate to a right patrice-mastoid effusion. No acute intracranial abnormality with mild atrophy noted. Agree with preliminary interpretation. Dictated by: Dictated on workstation # [id number]
--- NOTE | 2022-01-18 07:01 | Diagnostic Imaging Report ---
INDICATION: Altered mental status with shortness of breath. Comparison with 01/05/2022. FINDINGS: Dialysis catheter again noted on the right unchanged. There is increasing left pleural effusion. Right lung remains well-aerated and relatively clear with minimal interstitial prominence. There is mild cardiomegaly again noted. No definite pulmonary edema is seen. No bony abnormalities. IMPRESSION: 1. Increasing left pleural effusion which is rather large now. 2. Continued cardiomegaly without definite findings of congestive failure. Dictated by: Dictated on workstation # [id number]
== END 2022-01-18 01:52 | disposition short-term general hospital (02) ==
LOC: EDUNIT# 23:33 → ER 23:35
DX: A41.9 Sepsis, unspecified organism (principal); N39.0 Urinary tract infection, site not specified; N18.6 End stage renal disease; R77.8 Other specified abnormalities of plasma proteins
CPT/HCPCS: 36415; 51702; 70450; 71045; 80053; 81000; 83605; 83880; 84484; 85025; 85610; 85730; 87040; 87088; 87106; 93005